=== PATIENT | male | born 1970 ===

== ENCOUNTER 2017-01-25 00:36 | Observation (INO) | payer MEDICARE, OTHER ==
[2017-01-25 00:36] VITALS: BMI 21.9
[2017-01-25] MEDS ORDERED: Sodium Chloride 0.9% 1,000 ML IV ONE (01:09)
[2017-01-25] MEDS ORDERED: Iohexol 240 (50 ml) PO STA (01:09)
--- NOTE | 2017-01-25 01:11 | C.PDOC ---
History Of Present Illness 46 year old male with ESRD on hemodialysis (Tuesday, , and Tuesday), presents to the ER with a complaint of abdominal pain since last night. Patient states the pain is generalized cramping and associated with multiple episodes of diarrhea and nausea. Patient reports he does not make any urine; denies vomiting, fever, or chills. Time Seen by Provider: 01/25/17 01:01 Chief Complaint (Nursing): Abdominal Pain History Per: Patient History/Exam Limitations: no limitations Onset/Duration Of Symptoms: Days Current Symptoms Are (Timing): Still Present Location Of Pain/Discomfort: Diffuse Radiation Of Pain To:: None Quality Of Discomfort: Unable To Describe Associated Symptoms: Nausea, Diarrhea. denies: Fever, Chills, Vomiting Exacerbating Factors: None Alleviating Factors: None Recent travel outside of the [place]: No Past Medical History Reviewed: Historical Data, Nursing Documentation, Vital Signs Vital Signs: Last Vital Signs Temp 97.9 F 01/25/17 00:40 Pulse 66 01/25/17 00:40 Resp 20 01/25/17 00:40 BP 112/75 01/25/17 00:40 Pulse Ox 100 01/25/17 02:33 - Medical History PMH: HTN, End Stage Renal Disease (DIALYSIS T--TUE), Chronic Kidney Disease - [facility] Procedures INCIS W REM OF FORIEGN BODY OR DEV FROM SKIN & SUBCUT TISSUE (01/28/06) VENOUS CATHETERIZATION FOR RENAL DIALYSIS (06/18/13) Family History: States: No Known Family Hx - Social History Hx Tobacco Use: No Hx Alcohol Use: No Hx Substance Use: No - Immunization History Hx Tetanus Toxoid Vaccination: No Hx Influenza Vaccination: No Hx Pneumococcal Vaccination: No Review Of Systems Constitutional: Negative for: Fever, Chills Gastrointestinal: Positive for: Nausea, Abdominal Pain. Negative for: Vomiting Genitourinary: Positive for: Other (Does not make urine) Physical Exam - Physical Exam Appears: Non-toxic Skin: Normal Color, Warm, Dry Head: Atraumatic, Normacephalic Eye(s): bilateral: Normal Inspection, EOMI Oral Mucosa: Moist Neck: Normal ROM Chest: Symmetrical, No Tenderness Cardiovascular: Rhythm Regular, No Murmur Respiratory: Normal Breath Sounds, No Rales, No Rhonchi, No Wheezing Gastrointestinal/Abdominal: Bowel Sounds, Soft, Tenderness (Diffuse), Distention (Mild), Other (Dialysis cath noted to RLQ, multiple scars on abdomen) Back: Normal Inspection, No CVA Tenderness Neurological/Psych: Oriented x3, Normal Speech ED Course And Treatment - Laboratory Results Result Diagrams: 01/25/17 01:31 01/25/17 01:31 O2 Sat by Pulse Oximetry: 100 Medical Decision Making Medical Decision Making: Impression: abdominal pain, diarrhea Plan: * Labs * IV NS * CT A/P Progress: labs consistent with CKD CT shows colonic thickening, possible pancolitis Patient remains unchanged, mild improvement Plan is to keep for obs and treat with IV antibiotics Disposition - Disposition Referrals: Casa Huynh MD [Primary Care Provider] - Disposition: HOSPITALIZED Disposition Time: 05:45 Condition: STABLE - POA Present On Arrival: None - Clinical Impression Clinical Impression: Abdominal pain, ESRD (end stage renal disease) on dialysis, Acute colitis - Scribe Statement The provider has reviewed the documentation as recorded by the Scribe Willie William All medical record entries made by the Scribe were at my direction and personally dictated by me. I have reviewed the chart and agree that the record accurately reflects my personal performance of the history, physical exam, medical decision making, and the department course for this patient. I have also personally directed, reviewed, and agree with the discharge instructions and disposition. Decision To Admit - Pt Status Changed To: Hospital Disposition Of: Observation - . Bed Request Type: Regular Admitting Physician: Barry Mcdonough Patient Diagnosis: Abdominal pain, ESRD (end stage renal disease) on dialysis, Acute colitis
[2017-01-25] MEDS ORDERED: Sodium Chloride 0.9% 1,000 ML ONE (01:19)
[2017-01-25] MEDS ORDERED: Iohexol 240 (50 ml) ONE (01:19)
[2017-01-25 01:38] LABS: BASO % 1.4 % (0.0-2.0); EOS # 0.2 K/uL (0.0-0.7); EOS % 5.5 % (0.0-4.0); HEMATOCRIT 31.8 % (35.0-51.0); LYMPH # 0.3 K/uL (1.0-4.3); LYMPH % 8.6 % (20.0-40.0); MEAN CELL VOLUME 93.9 fL (80.0-94.0); MEAN CORPUSCULAR HEMOGLOBIN 29.7 pg (27.0-31.0); MEAN CORPUSCULAR HGB CONC 31.6 g/dL (33.0-37.0); MEAN PLATELET VOLUME 10.5 fL (7.2-11.7); MONO # 0.4 K/uL (0.0-0.8); MONO % 11.9 % (0.0-10.0); NRBC % 0.1 % (0.0-2.0); PLATELET COUNT 92 K/uL (130-400); RED CELL DISTRIBUTION WIDTH 15.8 % (11.5-14.5); WHITE BLOOD COUNT 3.5 K/uL (4.8-10.8)
[2017-01-25 01:56] LABS: ALB/GLOB RATIO 1.1 (1.0-2.1); BILIRUBIN,TOTAL 1.1 mg/dL (0.2-1.3); CALCIUM 7.4 mg/dl (8.6-10.4); POTASSIUM 5.4 mmol/L (3.6-5.2); TOTAL PROTEIN 7.9 g/dL (6.3-8.3)
[2017-01-25 05:35] LABS: EOSINOPHIL 5 % (0-4); NEUTROPHIL 71 % (50-75); TOTAL CELLS COUNTED 100
[2017-01-25] MEDS ORDERED: Piperacillin/Tazobact 3.375 gm 100 ML IVPB ONE (05:59)
--- NOTE | 2017-01-25 08:47 | CT ---
PROCEDURE: CT Abdomen and Pelvis without intravenous contrast HISTORY: Generalized abdominal pain. Diarrhea. COMPARISON: None. TECHNIQUE: Multiple contiguous axial images were performed through the abdomen and pelvis without the use of intravenous contrast. Subsequently, sagittal and coronal reformatted images were obtained. Radiation dose: Total exam DLP = 330 mGy-cm. This CT exam was performed using one or more of the following dose reduction techniques: Automated exposure control, adjustment of the mA and/or kV according to patient size, and/or use of iterative reconstruction technique. FINDINGS: LOWER THORAX: Small right pleural effusion. Patchy alveolar opacities in the right lower lobe. Central line introduced from the lumbar approach in the inferior vena cava with its tip in the right atrium. Coronary calcifications. LIVER: Marked prominence of the left hepatic lobe with a heterogeneous attenuation. This may be better evaluated with a contrasted study. GALLBLADDER AND BILE DUCTS: Unremarkable. PANCREAS: Unremarkable. No gross lesion or ductal dilatation. SPLEEN: Mild splenomegaly. ADRENALS: Unremarkable. No mass. KIDNEYS AND URETERS: Both kidneys are not identified and may be severely atrophic or surgically absent. VASCULATURE: Significant prominence of the azygous venous system. Moderate atherosclerotic calcification. BOWEL: Diffuse wall thickening of the colon. Underdistention versus wall thickening of the stomach. Prominent featureless segment of bowel in the right anterior abdomen which may be related to prior surgery and or an atrophic segment. APPENDIX: Not visualized. PERITONEUM: Unremarkable. No free fluid. No free air. LYMPH NODES: Few shotty para-aortic and mesenteric lymph nodes. Due to prominence of the azygous venous system, retrocrural lymph nodes are difficult to detect. BLADDER: Urinary bladder is deformed in contracted. REPRODUCTIVE: Unremarkable. BONES: Diffuse sclerosis of the bones is likely related to chronic renal failure. Mild loss of height of the superior endplate of the L2 vertebral body. OTHER FINDINGS: Amorphous calcification in the right lower quadrant, possibly from prior renal transplant. Trace pelvic ascites. Extensive anasarca limiting evaluation. Calcification extending from the left groin into the left thigh. IMPRESSION: Diffuse wall thickening of the colon. This may represent an underlying anderson colitis. Alternatively, this may be related to renal failure and or anasarca. Additional findings as above. These findings were preliminarily reported at 5:24 a.m. on 01/25/[address] Lore Novoa from [employer].
[2017-01-25] MEDS ORDERED: Pantoprazole 40 mg EC Tab PO SCH (10:00)
[2017-01-25] MEDS ORDERED: Enoxaparin 40 mg Syringe SC SCH (10:00)
[2017-01-25] MEDS ORDERED: Enoxaparin 40 mg Syringe ONE (10:21)
[2017-01-25] MEDS ORDERED: Ciprofloxacin 400mg/200ml D5W 400 MG/200 ML BAG IVPB ONE (10:21)
--- NOTE | 2017-01-25 10:34 | CP.PCM.CON ---
<Ac Arceo - Last Filed: 01/25/17 15:48> History of Present Illness - History of Present Illness History of Present Illness: PGY5 GI Fellow Consult Note Patient is a 46yo male with PMHx significant for chronic HBV on daily Lamivudine , ESRD on HD T/R/Sa, HTN who presented to the ED with abdominal discomfort. Patient is a poor historian. For the past two days, patient has been suffering with worsening abdominal bloating. He developed pressure-like discomfort two days prior to arrival and admits to increase in abdominal girth. During this same timeframe he admits to 4-5 episode of loose, watery stool daily. He had one episode of nausea/vomiting one day ago but denies any fever, chills. Patient also denies any recent antibiotic use, sick contacts or travel outside the country. He is unable to provide any history regarding his chronic HBV infection and did not know the name of his medication he is on but admits to compliance with daily therapy. No lab work is available in our system in regards to the patient's HBV status. He denies any history of cirrhosis and it is unclear if he has required HCC screening previously. 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 absent: Chills, Fever, Weight Loss - EENT Eyes: absent: Change in Vision Nose/Mouth/Throat: absent: Sore Throat - Cardiovascular Cardiovascular: absent: Chest Pain, Dyspnea, Palpitations - Respiratory Respiratory: absent: Cough, Dyspnea, Excessive Mucous Production - Gastrointestinal Gastrointestinal: Abdominal Pain, Bloating, Change in Bowel Habits, Change in Stool Character, Diarrhea, Dyspepsia, Nausea, Vomiting. absent: Constipation, Cramping, Dysphagia, Hematemesis, Hematochezia, Melena, Temesmus - Genitourinary Genitourinary: absent: Flank Pain Additional comments: pt is anuric - Musculoskeletal Musculoskeletal: absent: Back Pain, Neck Pain - Integumentary Integumentary: absent: New Lesions, Rash - Neurological Neurological: absent: Dizziness, Numbness, Focal Weakness - Psychiatric Psychiatric: absent: Anxiety, Depression - Endocrine Endocrine: absent: Polydipsia, Polyphagia, Polyuria - Hematologic/Lymphatic Hematologic: absent: Easy Bleeding, Easy Bruising, Lymphadenopathy Past Patient History - Past Social History Smoking Status: Never Smoked - CARDIAC Hx Hypertension: Yes - NEUROLOGICAL Hx Paralysis: No - RENAL Hx Chronic Kidney Disease: Yes - HEMATOLOGICAL/ONCOLOGICAL Hx Blood Transfusions: No Hx Blood Transfusion Reaction: No - MUSCULOSKELETAL/RHEUMATOLOGICAL Hx Musculoskeletal Disorders: No - PSYCHIATRIC Hx Substance Use: No - SURGICAL HISTORY Hx Surgeries: Yes Hx Vascular Surgery: Yes (SHUNT placement) - ANESTHESIA Hx Anesthesia: Yes Hx Anesthesia Reactions: No Hx Malignant Hyperthermia: No Meds Allergies/Adverse Reactions: Allergies Allergy/AdvReac Type Severity Reaction Status Date / Time No Known Allergies Allergy Verified 01/25/17 00:43 - Medications Medications: Current Medications Calcium Acetate (Phoslo) 667 mg PO DAILY [facility] Cinacalcet (Sensipar) 30 mg PO DAILY [facility] Clonidine HCl (Catapres) 0.1 mg PO DAILY [facility] Enoxaparin Sodium (Lovenox) 40 mg SC DAILY [facility] Home Med (Lamivudine [Lamivudine Hbv]) 100 mg PO DAILY [facility] Sodium Chloride (Sodium Chloride 0.9%) 1,000 mls @ 100 mls/hr IV .Q10H ONE Stop: 01/25/17 11:08 Last Admin: 01/25/17 02:01 Dose: 100 mls/hr Piperacillin Sod/Tazobactam Sod (Zosyn 3.375 Gm Iv Premix) 3.375 gm in 50 mls @ 100 mls/hr IVPB Q8H [facility] Ciprofloxacin (Cipro 400mg/200ml Dsw) 400 mg in 200 mls @ 133 mls/hr IVPB Q12H [facility] Morphine Sulfate (Morphine) 2 mg IVP Q4 PRN PRN Reason: pain Pantoprazole Sodium (Protonix Ec Tab) 20 mg PO DAILY [facility] Sevelamer Carbonate (Renvela) 3 mg PO TID [facility] Physical Exam - Constitutional Appears: No Acute Distress, Chronically Ill - Eye Exam Eye Exam: EOMI, PERRL - ENT Exam ENT Exam: Mucous Membranes Moist - Respiratory Exam Respiratory Exam: Clear to Auscultation Bilateral. absent: Rales, Rhonchi, Wheezes - Cardiovascular Exam Cardiovascular Exam: RRR, +S1, +S2 - GI/Abdominal Exam GI & Abdominal Exam: Distended, Normal Bowel Sounds, Soft. absent: Firm, Guarding, Organomegaly, Rigid, Tenderness Additional comments: healed midline surgical scar - Extremities Exam Extremities exam: Positive for: normal inspection. Negative for: pedal edema - Neurological Exam Neurological exam: Alert, Oriented x3 - Psychiatric Exam Psychiatric exam: Flat Affect - Skin Skin Exam: Dry, Warm Results - Vital Signs Recent Vital Signs: Last Vital Signs Temp 98.4 F 01/25/17 07:54 Pulse 74 01/25/17 10:25 Resp 18 01/25/17 10:25 BP 104/77 01/25/17 10:25 Pulse Ox 100 01/25/17 10:25 - Labs Result Diagrams: 01/25/17 01:31 01/25/17 01:31 Labs: Laboratory Results - last 24 hr 01/25/17 01/25/17 01:31 01:31 WBC 3.5 L RBC 3.38 L Hgb 10.0 L Hct 31.8 L MCV 93.9 D MCH 29.7 MCHC 31.6 L RDW 15.8 H Plt Count 92 L D MPV 10.5 Neut % (Auto) 72.6 Lymph % (Auto) 8.6 L [place] % (Auto) 11.9 H Eos % (Auto) 5.5 H Baso % (Auto) 1.4 Neut # 2.5 Lymph # 0.3 L Mitchell # 0.4 Eos # 0.2 Baso # 0.0 Neutrophils % (Manual) 71 Lymphocytes % (Manual) 14 L Monocytes % (Manual) 10 Eosinophils % (Manual) 5 H Platelet Estimate Decreased L Poikilocytosis (manual Slight Anisocytosis (manual) Slight Sodium 143 Potassium 5.4 H Chloride 98 Carbon Dioxide 26 Anion Gap 24 H BUN 37 H Creatinine 9.9 H* Est GFR ( Amer) 7 Est GFR (Non-Af Amer) 6 Random Glucose 98 Calcium 7.4 L Total Bilirubin 1.1 AST 37 ALT 26 Alkaline Phosphatase 156 H Total Protein 7.9 Albumin 4.0 Globulin 3.8 Albumin/Globulin Ratio 1.1 Lipase 240 Assessment & Plan - Assessment and Plan (Free Text) Assessment: Patient is a 46yo male with PMHx significant for chronic HBV on daily Lamivudine , ESRD on HD T/R/Sa, HTN who presented to the ED with abdominal discomfort. -Pancolitis -Chronic HBV on Lamivudine -ESRD on HD T/R/Sa -HTN Plan: -Would recommend checking stool culture and C diff given risk factor of exposure to hospital setting - dialysis patient -Agree with empiric antibiotic coverage - Would recommend Zosyn/Flagyl or Ceftriaxone/Flagyl and discontinue Cipro -CT A/P reviewed - no evidence of cirrhotic or complications related to liver disease on imaging -Regarding the patient's HBV, Check: HBV SAg HBV SAb HBV EAg HBV EAb HBV DNA AFP -Check INR -Will ultimately benefit from colonoscopy once acute issues resolve which can be performed as an outpatient - Date & Time Date: 01/25/17 Time: 11:00 <London Edwards - Last Filed: 01/25/17 15:56> Meds - Medications Medications: Current Medications Calcium Acetate (Phoslo) 667 mg PO DAILY [facility] Last Admin: 01/25/17 12:05 Dose: Not Given Cinacalcet (Sensipar) 30 mg PO DAILY [facility] Last Admin: 01/25/17 11:42 Dose: 30 mg Clonidine HCl (Catapres) 0.1 mg PO DAILY [facility] Last Admin: 01/25/17 10:56 Dose: Not Given Enoxaparin Sodium (Lovenox) 40 mg SC DAILY [facility] Last Admin: 01/25/17 11:42 Dose: 40 mg Heparin Sodium (Porcine) (Heparin) 1,000 units IVP TTS [facility] Stop: 01/29/17 10:01 Last Admin: 01/25/17 13:45 Dose: 1,000 units Heparin Sodium (Porcine) (Heparin) 5,400 units IVP TTS [facility] Stop: 01/29/17 10:01 Piperacillin Sod/Tazobactam Sod (Zosyn 3.375 Gm Iv Premix) 3.375 gm in 50 mls @ 100 mls/hr IVPB Q8H [facility] Ciprofloxacin (Cipro 400mg/200ml Dsw) 400 mg in 200 mls @ 133 mls/hr IVPB Q12H [facility] Last Admin: 01/25/17 10:38 Dose: 133 mls/hr Lamivudine (Epivir) 100 mg PO DAILY [facility] Morphine Sulfate (Morphine) 2 mg IVP Q4 PRN PRN Reason: pain Pantoprazole Sodium (Protonix Ec Tab) 20 mg PO DAILY [facility] Last Admin: 01/25/17 12:06 Dose: 20 mg Sevelamer Carbonate (Renvela) 2,400 mg PO TIDCC [facility] Results - Vital Signs Recent Vital Signs: Last Vital Signs Temp 98.2 F 01/25/17 13:35 Pulse 62 01/25/17 15:18 Resp 16 01/25/17 15:18 BP 108/91 H 01/25/17 15:18 Pulse Ox 100 01/25/17 13:35 - Labs Result Diagrams: 01/25/17 01:31 01/25/17 01:31 Labs: Laboratory Results - last 24 hr 01/25/17 01/25/17 01:31 01:31 WBC 3.5 L RBC 3.38 L Hgb 10.0 L Hct 31.8 L MCV 93.9 D MCH 29.7 MCHC 31.6 L RDW 15.8 H Plt Count 92 L D MPV 10.5 Neut % (Auto) 72.6 Lymph % (Auto) 8.6 L [place] % (Auto) 11.9 H Eos % (Auto) 5.5 H Baso % (Auto) 1.4 Neut # 2.5 Lymph # 0.3 L Mitchell # 0.4 Eos # 0.2 Baso # 0.0 Neutrophils % (Manual) 71 Lymphocytes % (Manual) 14 L Monocytes % (Manual) 10 Eosinophils % (Manual) 5 H Platelet Estimate Decreased L Poikilocytosis (manual Slight Anisocytosis (manual) Slight Sodium 143 Potassium 5.4 H Chloride 98 Carbon Dioxide 26 Anion Gap 24 H BUN 37 H Creatinine 9.9 H* Est GFR ( Amer) 7 Est GFR (Non-Af Amer) 6 Random Glucose 98 Calcium 7.4 L Total Bilirubin 1.1 AST 37 ALT 26 Alkaline Phosphatase 156 H Total Protein 7.9 Albumin 4.0 Globulin 3.8 Albumin/Globulin Ratio 1.1 Lipase 240 Attending/Attestation - Attestation I have personally seen and examined this patient.: Yes I have fully participated in the care of the patient.: Yes I have reviewed all pertinent clinical information: Yes Notes (Text): 01/25/17 15:50 I have seen and examined patient with GI fellow. Agree with above documentation with the following additions. In brief, this is a 46 year old male with history of ESRD on HD, chronic HBV on lamivudine, HTN, who presented to hospital with complaint of abdominal pain and change in bowel habits. He endorses having 4-5 loose watery, non-bloody bowel movements over the past two days accompanied with crampy diffuse abdominal pain. He denies nausea, vomiting , fever/chills, weight loss, rectal bleeding, recent travel, sick contacts, or recent antibiotic use. He is not clear regarding follow up of chronic liver disease, though claims to be compliant with medical therapy. No prior endoscopic evaluation. ESRD on HD Chronic HBV HTN Abdominal pain, diarrhea - CT imaging reviewed by me showing pancolitis without associated moira-colonic abscess - Liquid diet as tolerated - Obtain stool studies (culture, c-difficile) - Continue with antibiotic therapy, would suggest stopping cipro since zosyn has already been started and adding flagyl for extended coverage - Obtain further HBV studies to further evaluate for active disease including EAg status and viral load - Continue to monitor LFTs, obtain INR - Patient will benefit from colonoscopy which can be performed electively as outpatient 6-8 weeks following resolution of acute symptoms - Will continue to monitor patient clinical course
[2017-01-25] MEDS: Ciprofloxacin 400mg/200ml D5W 400 MG/200 ML BAG IVPB SCH ×2 (10:38→21:37)
[2017-01-25] MEDS: Pantoprazole 20 mg EC Tab PO SCH (12:06)
[2017-01-25] MEDS: LamiVUDine 10 mg/ml Syringe PO SCH (13:00)
[2017-01-25] MEDS: Piperacill/Tazo 3.375gm in Dex 3.375 GM/50 ML BAG IVPB SCH ×2 (14:00→21:39)
--- NOTE | 2017-01-25 14:31 | CP.PCM.CON ---
History of Present Illness - History of Present Illness History of Present Illness: Patient is a 46yo male with PMHx significant for chronic HBV on daily Lamivudine , ESRD on HD T/R/Sa, HTN who presented to the ED with abdominal discomfort. Patient is a poor historian. For the past two days, patient has been suffering with worsening abdominal bloating. He developed pressure-like discomfort two days prior to arrival and admits to increase in abdominal girth. During this same timeframe he admits to 4-5 episode of loose, watery stool daily. He had one episode of nausea/vomiting one day ago but denies any fever, chills. Patient also denies any recent antibiotic use, sick contacts or travel outside the country. Last HD Tuesday, didnt miss any treatment. Pt has previous failed avf, currently abdominal hd catheter in place. 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 FHx: Discussed with patient and denies any pertinent family history Social: Denies tobacco, EtOH or illicit drug use Review of Systems - Review of Systems All systems: reviewed and no additional remarkable complaints except (as per HPI ) Past Patient History - Past Social History Smoking Status: Never Smoked - CARDIAC Hx Hypertension: Yes - NEUROLOGICAL Hx Paralysis: No - RENAL Hx Chronic Kidney Disease: Yes - HEMATOLOGICAL/ONCOLOGICAL Hx Blood Transfusions: No Hx Blood Transfusion Reaction: No - MUSCULOSKELETAL/RHEUMATOLOGICAL Hx Musculoskeletal Disorders: No - PSYCHIATRIC Hx Substance Use: No - SURGICAL HISTORY Hx Surgeries: Yes Hx Vascular Surgery: Yes (SHUNT placement) - ANESTHESIA Hx Anesthesia: Yes Hx Anesthesia Reactions: No Hx Malignant Hyperthermia: No Meds Allergies/Adverse Reactions: Allergies Allergy/AdvReac Type Severity Reaction Status Date / Time No Known Allergies Allergy Verified 01/25/17 00:43 - Medications Medications: Current Medications Calcium Acetate (Phoslo) 667 mg PO DAILY [facility] Last Admin: 01/25/17 12:05 Dose: Not Given Cinacalcet (Sensipar) 30 mg PO DAILY [facility] Last Admin: 01/25/17 11:42 Dose: 30 mg Clonidine HCl (Catapres) 0.1 mg PO DAILY [facility] Last Admin: 01/25/17 10:56 Dose: Not Given Enoxaparin Sodium (Lovenox) 40 mg SC DAILY [facility] Last Admin: 01/25/17 11:42 Dose: 40 mg Heparin Sodium (Porcine) (Heparin) 1,000 units IVP TTS [facility] Stop: 01/29/17 10:01 Last Admin: 01/25/17 13:45 Dose: 1,000 units Piperacillin Sod/Tazobactam Sod (Zosyn 3.375 Gm Iv Premix) 3.375 gm in 50 mls @ 100 mls/hr IVPB Q8H [facility] Ciprofloxacin (Cipro 400mg/200ml Dsw) 400 mg in 200 mls @ 133 mls/hr IVPB Q12H [facility] Last Admin: 01/25/17 10:38 Dose: 133 mls/hr Lamivudine (Epivir) 100 mg PO DAILY [facility] Morphine Sulfate (Morphine) 2 mg IVP Q4 PRN PRN Reason: pain Pantoprazole Sodium (Protonix Ec Tab) 20 mg PO DAILY [facility] Last Admin: 01/25/17 12:06 Dose: 20 mg Sevelamer Carbonate (Renvela) 2,400 mg PO TIDCC [facility] Physical Exam - Constitutional Appears: No Acute Distress, Chronically Ill - Head Exam Head Exam: NORMAL INSPECTION - Eye Exam Eye Exam: Normal appearance - ENT Exam ENT Exam: Mucous Membranes Moist, Normal Exam - Neck Exam Neck exam: Positive for: Normal Inspection - Cardiovascular Exam Cardiovascular Exam: REGULAR RHYTHM, RRR - GI/Abdominal Exam GI & Abdominal Exam: Diminished Bowel Sounds, Distended, Soft Additional comments: midline scar. rt sided hd catheter - Neurological Exam Neurological exam: Alert, Oriented x3 Results - Vital Signs Recent Vital Signs: Last Vital Signs Temp 98.4 F 01/25/17 07:54 Pulse 74 01/25/17 10:25 Resp 18 01/25/17 10:25 BP 104/77 01/25/17 10:25 Pulse Ox 100 01/25/17 10:25 - Labs Result Diagrams: 01/25/17 01:31 01/25/17 01:31 Labs: Laboratory Results - last 24 hr 01/25/17 01/25/17 01:31 01:31 WBC 3.5 L RBC 3.38 L Hgb 10.0 L Hct 31.8 L MCV 93.9 D MCH 29.7 MCHC 31.6 L RDW 15.8 H Plt Count 92 L D MPV 10.5 Neut % (Auto) 72.6 Lymph % (Auto) 8.[address] [place] % (Auto) 11.9 H Eos % (Auto) 5.5 H Baso % (Auto) 1.4 Neut # 2.5 Lymph # 0.[address] [place] # 0.4 Eos # 0.2 Baso # 0.0 Neutrophils % (Manual) 71 Lymphocytes % (Manual) 14 L Monocytes % (Manual) 10 Eosinophils % (Manual) 5 H Platelet Estimate Decreased L Poikilocytosis (manual Slight Anisocytosis (manual) Slight Sodium 143 Potassium 5.4 H Chloride 98 Carbon Dioxide 26 Anion Gap 24 H BUN 37 H Creatinine 9.9 H* Est GFR ( Amer) 7 Est GFR (Non-Af Amer) 6 Random Glucose 98 Calcium 7.4 L Total Bilirubin 1.1 AST 37 ALT 26 Alkaline Phosphatase 156 H Total Protein 7.9 Albumin 4.0 Globulin 3.8 Albumin/Globulin Ratio 1.1 Lipase 240 Assessment & Plan (1) Abdominal pain Status: Acute (2) Acute colitis Status: Acute (3) ESRD (end stage renal disease) on dialysis Status: Acute - Assessment and Plan (Free Text) Assessment: maintain hd tts obtained hepatitis status from hd unit GI management
[2017-01-25 17:05] LABS: INR 1.4
--- NOTE | 2017-01-25 20:34 | CP.PCM.HP ---
Past Patient History - Past Medical History & Family History Past Medical History?: Yes - Past Social History Smoking Status: Never Smoked - CARDIAC Hx Hypertension: Yes - NEUROLOGICAL Hx Paralysis: No - RENAL Hx Chronic Kidney Disease: Yes - HEMATOLOGICAL/ONCOLOGICAL Hx Blood Transfusions: No Hx Blood Transfusion Reaction: No - MUSCULOSKELETAL/RHEUMATOLOGICAL Hx Musculoskeletal Disorders: No - PSYCHIATRIC Hx Substance Use: No - SURGICAL HISTORY Hx Surgeries: Yes Hx Vascular Surgery: Yes (SHUNT placement) - ANESTHESIA Hx Anesthesia: Yes Hx Anesthesia Reactions: No Hx Malignant Hyperthermia: No Meds Allergies/Adverse Reactions: Allergies Allergy/AdvReac Type Severity Reaction Status Date / Time No Known Allergies Allergy Verified 01/25/17 00:43 Physical Exam - Constitutional Appears: Well - Head Exam Head Exam: ATRAUMATIC, NORMAL INSPECTION, NORMOCEPHALIC - Eye Exam Eye Exam: EOMI, Normal appearance, PERRL Pupil Exam: NORMAL ACCOMODATION, PERRL - ENT Exam ENT Exam: Mucous Membranes Moist, Normal Exam - Neck Exam Neck exam: Positive for: Normal Inspection - Respiratory Exam Respiratory Exam: Decreased Breath Sounds - Cardiovascular Exam Cardiovascular Exam: REGULAR RHYTHM, +S1, +S2 - GI/Abdominal Exam GI & Abdominal Exam: Diminished Bowel Sounds, Soft - Rectal Exam Rectal Exam: Deferred Results - Vital Signs Recent Vital Signs: Last Vital Signs Temp 97.6 F 01/25/17 17:05 Pulse 69 01/25/17 17:05 Resp 16 01/25/17 17:05 BP 104/78 01/25/17 17:05 Pulse Ox 97 01/25/17 17:05 - Labs Result Diagrams: 01/25/17 01:31 01/25/17 01:31 Labs: Laboratory Results - last 24 hr 01/25/17 01/25/17 01/25/17 01:31 01:31 16:52 WBC 3.5 L RBC 3.38 L Hgb 10.0 L Hct 31.8 L MCV 93.9 D MCH 29.7 MCHC 31.6 L RDW 15.8 H Plt Count 92 L D MPV 10.5 Neut % (Auto) 72.6 Lymph % (Auto) 8.6 L [place] % (Auto) 11.9 H Eos % (Auto) 5.5 H Baso % (Auto) 1.4 Neut # 2.5 Lymph # 0.3 L [place] # 0.4 Eos # 0.2 Baso # 0.0 Neutrophils % (Manual) 71 Lymphocytes % (Manual) 14 L Monocytes % (Manual) 10 Eosinophils % (Manual) 5 H Platelet Estimate Decreased L Poikilocytosis (manual Slight Anisocytosis (manual) Slight PT INR Sodium 143 Potassium 5.4 H Chloride 98 Carbon Dioxide 26 Anion Gap 24 H BUN 37 H Creatinine 9.9 H* Est GFR ( Amer) 7 Est GFR (Non-Af Amer) 6 Random Glucose 98 Calcium 7.4 L Total Bilirubin 1.1 AST 37 ALT 26 Alkaline Phosphatase 156 H Total Protein 7.9 Albumin 4.0 Globulin 3.8 Albumin/Globulin Ratio 1.1 Lipase 240 Alpha Fetoprotein Hep Bs Antibody Negative 01/25/17 01/25/17 16:52 16:52 WBC RBC Hgb Hct MCV MCH MCHC RDW Plt Count MPV Neut % (Auto) Lymph % (Auto) [place] % (Auto) Eos % (Auto) Baso % (Auto) Neut # Lymph # [place] # Eos # Baso # Neutrophils % (Manual) Lymphocytes % (Manual) Monocytes % (Manual) Eosinophils % (Manual) Platelet Estimate Poikilocytosis (manual Anisocytosis (manual) PT 15.9 H INR 1.4 Sodium Potassium Chloride Carbon Dioxide Anion Gap BUN Creatinine Est GFR ( Amer) Est GFR (Non-Af Amer) Random Glucose Calcium Total Bilirubin AST ALT Alkaline Phosphatase Total Protein Albumin Globulin Albumin/Globulin Ratio Lipase Alpha Fetoprotein 1.7 Hep Bs Antibody
[2017-01-26] MEDS: Piperacill/Tazo 3.375gm in Dex 3.375 GM/50 ML BAG IVPB SCH ×2 (05:38→14:29)
[2017-01-26 09:06] LABS: HEP B SURFACE AG CONF CONFIRMED POSITIVE
[2017-01-26] MEDS: Ciprofloxacin 400mg/200ml D5W 400 MG/200 ML BAG IVPB SCH (10:47)
[2017-01-26] MEDS: Pantoprazole 20 mg EC Tab PO SCH (10:56)
[2017-01-26] MEDS: LamiVUDine 10 mg/ml Syringe PO SCH (10:57)
[2017-01-26 11:04] LABS: BASO % 1.6 % (0.0-2.0); EOS # 0.2 K/uL (0.0-0.7); EOS % 5.6 % (0.0-4.0); HEMATOCRIT 28.4 % (35.0-51.0); LYMPH # 0.3 K/uL (1.0-4.3); LYMPH % 11.2 % (20.0-40.0); MEAN CELL VOLUME 93.8 fL (80.0-94.0); MEAN CORPUSCULAR HEMOGLOBIN 29.3 pg (27.0-31.0); MEAN CORPUSCULAR HGB CONC 31.3 g/dL (33.0-37.0); MEAN PLATELET VOLUME 10.1 fL (7.2-11.7); MONO # 0.5 K/uL (0.0-0.8); MONO % 17.5 % (0.0-10.0); NRBC % 0.1 % (0.0-2.0); RED CELL DISTRIBUTION WIDTH 16.2 % (11.5-14.5); WHITE BLOOD COUNT 2.8 K/uL (4.8-10.8)
[2017-01-26 11:14] LABS: POTASSIUM 3.9 mmol/L (3.6-5.2)
[2017-01-26 11:16] LABS: BILIRUBIN,TOTAL 1.2 mg/dL (0.2-1.3)
[2017-01-26 11:17] LABS: TOTAL PROTEIN 7.1 g/dL (6.3-8.3)
--- NOTE | 2017-01-26 14:53 | CP.PCM.PN ---
Subjective - Date & Time of Evaluation Date of Evaluation: 01/26/17 Time of Evaluation: 14:50 - Subjective Subjective: still with abdominal pains has had diarrhea stable dialysis 01/25- UF 2300ml low grade temps noted poor appetite Objective - Vital Signs/Intake and Output Vital Signs (last 24 hours): Temp Pulse Resp BP Pulse Ox 98.7 F 69 20 100/66 97 01/26/17 08:12 01/26/17 08:12 01/26/17 08:12 01/26/17 08:12 01/26/17 08:12 Intake and Output: 01/26/17 01/26/17 06:59 18:59 Intake Total 300 Output Total 0 Balance 300 - Medications Medications: Current Medications Calcium Acetate (Phoslo) 667 mg PO TID [facility] Cinacalcet (Sensipar) 30 mg PO DAILY [facility] Last Admin: 01/26/17 10:51 Dose: 30 mg Clonidine HCl (Catapres) 0.1 mg PO DAILY [facility] Last Admin: 01/26/17 10:51 Dose: 0.1 mg Heparin Sodium (Porcine) (Heparin) 1,000 units IVP TTS [facility] Stop: 01/29/17 10:01 Last Admin: 01/25/17 13:45 Dose: 1,000 units Heparin Sodium (Porcine) (Heparin) 5,400 units IVP TTS [facility] Stop: 01/29/17 10:01 Last Admin: 01/25/17 17:36 Dose: 5,400 units Metronidazole (Flagyl) 500 mg in 100 mls @ 100 mls/hr IVPB Q8 [facility] Piperacillin Sod/Tazobactam Sod (Zosyn 2.25 Gm Iv Premix) 2.25 gm in 50 mls @ 100 mls/hr IVPB Q8H [facility] Lamivudine (Epivir) 100 mg PO DAILY [facility] Last Admin: 01/26/17 10:57 Dose: 100 mg Morphine Sulfate (Morphine) 2 mg IVP Q4 PRN PRN Reason: pain Pantoprazole Sodium (Protonix Ec Tab) 20 mg PO DAILY [facility] Last Admin: 01/26/17 10:56 Dose: 20 mg Sevelamer Carbonate (Renvela) 2,400 mg PO TIDCC [facility] Last Admin: 01/26/17 13:00 Dose: 2,400 mg - Labs Labs: 01/26/17 10:57 01/26/17 10:57 PT 15.9 SECONDS (9.7-12.2) H 01/25/17 16:52 INR 1.4 01/25/17 16:52 - Constitutional Appears: No Acute Distress, Chronically Ill - Head Exam Head Exam: ATRAUMATIC, NORMAL INSPECTION - Eye Exam Eye Exam: EOMI, Normal appearance - Neck Exam Neck Exam: Normal Inspection. absent: Tenderness - Respiratory Exam Respiratory Exam: Clear to Ausculation Bilateral, NORMAL BREATHING PATTERN - Cardiovascular Exam Cardiovascular Exam: REGULAR RHYTHM, +S1 - GI/Abdominal Exam GI & Abdominal Exam: Soft. absent: Tenderness - Extremities Exam Extremities Exam: Normal Inspection. absent: Tenderness - Neurological Exam Neurological Exam: Alert, CN II-XII Intact - Skin Skin Exam: Dry, Warm Assessment and Plan (1) Vein stenosis Status: Acute (2) Acute colitis Status: Acute (3) ESRD (end stage renal disease) on dialysis Status: Acute (4) Chronic hepatitis B without delta agent without cirrhosis Status: Acute - Assessment and Plan (Free Text) Plan: Dialysis tts check c.diff GI follow up blood cultures- has h/o recurrent bacteremia from TESIO cath source
--- NOTE | 2017-01-26 17:38 | CP.PCM.PN ---
Subjective - Date & Time of Evaluation Date of Evaluation: 01/26/17 Time of Evaluation: 07:20 - Subjective Subjective: clinically same Objective - Vital Signs/Intake and Output Vital Signs (last 24 hours): Temp Pulse Resp BP Pulse Ox 98.7 F 69 20 92/57 L 95 01/26/17 16:00 01/26/17 16:00 01/26/17 16:00 01/26/17 16:00 01/26/17 16:00 Intake and Output: 01/26/17 01/26/17 06:59 18:59 Intake Total 300 Output Total 0 Balance 300 - Medications Medications: Current Medications Calcium Acetate (Phoslo) 667 mg PO TID [facility] Cinacalcet (Sensipar) 30 mg PO DAILY [facility] Last Admin: 01/26/17 10:51 Dose: 30 mg Clonidine HCl (Catapres) 0.1 mg PO DAILY [facility] Last Admin: 01/26/17 10:51 Dose: 0.1 mg Heparin Sodium (Porcine) (Heparin) 1,000 units IVP TTS [facility] Stop: 01/29/17 10:01 Last Admin: 01/25/17 13:45 Dose: 1,000 units Heparin Sodium (Porcine) (Heparin) 5,400 units IVP TTS [facility] Stop: 01/29/17 10:01 Last Admin: 01/25/17 17:36 Dose: 5,400 units Metronidazole (Flagyl) 500 mg in 100 mls @ 100 mls/hr IVPB Q8 [facility] Piperacillin Sod/Tazobactam Sod (Zosyn 2.25 Gm Iv Premix) 2.25 gm in 50 mls @ 100 mls/hr IVPB Q8H [facility] Lamivudine (Epivir) 100 mg PO DAILY [facility] Last Admin: 01/26/17 10:57 Dose: 100 mg Morphine Sulfate (Morphine) 2 mg IVP Q4 PRN PRN Reason: pain Pantoprazole Sodium (Protonix Ec Tab) 20 mg PO DAILY [facility] Last Admin: 01/26/17 10:56 Dose: 20 mg Sevelamer Carbonate (Renvela) 2,400 mg PO TIDCC [facility] Last Admin: 01/26/17 13:00 Dose: 2,400 mg - Labs Labs: 01/26/17 10:57 01/26/17 10:57 PT 15.9 SECONDS (9.7-12.2) H 01/25/17 16:52 INR 1.4 01/25/17 16:52 - Constitutional Appears: Well - Head Exam Head Exam: ATRAUMATIC, NORMAL INSPECTION, NORMOCEPHALIC - Eye Exam Eye Exam: EOMI, Normal appearance, PERRL Pupil Exam: NORMAL ACCOMODATION, PERRL - ENT Exam ENT Exam: Mucous Membranes Moist, Normal Exam - Neck Exam Neck Exam: Full ROM, Normal Inspection. absent: Lymphadenopathy - Respiratory Exam Respiratory Exam: Decreased Breath Sounds - Cardiovascular Exam Cardiovascular Exam: REGULAR RHYTHM, +S1, +S2 - GI/Abdominal Exam GI & Abdominal Exam: Soft, Diminished Bowel Sounds - Rectal Exam Rectal Exam: Deferred
--- NOTE | 2017-01-26 20:32 | CP.PCM.PN ---
Subjective - Date & Time of Evaluation Date of Evaluation: 01/26/17 Time of Evaluation: 20:29 - Subjective Subjective: Notified by Dr Atwood that patient was admitted and they were not aware that he has been cared for my me in the past. Office records not available to review until tomorrow. Patient was seen in my office only last week!! Pain reported to be better. Stool studies and viral markers/PCR have been ordered. Has F4 fibrosis by previous Fibrosure testing done in my office. No PCR available but was ordered last week as well. Objective - Vital Signs/Intake and Output Vital Signs (last 24 hours): Temp Pulse Resp BP Pulse Ox 98.7 F 69 20 92/57 L 95 01/26/17 16:00 01/26/17 16:00 01/26/17 16:00 01/26/17 16:00 01/26/17 16:00 - Medications Medications: Current Medications Calcium Acetate (Phoslo) 667 mg PO TID [facility] Last Admin: 01/26/17 17:51 Dose: 667 mg Cinacalcet (Sensipar) 30 mg PO DAILY [facility] Last Admin: 01/26/17 10:51 Dose: 30 mg Clonidine HCl (Catapres) 0.1 mg PO DAILY [facility] Last Admin: 01/26/17 10:51 Dose: 0.1 mg Heparin Sodium (Porcine) (Heparin) 1,000 units IVP TTS [facility] Stop: 01/29/17 10:01 Last Admin: 01/25/17 13:45 Dose: 1,000 units Heparin Sodium (Porcine) (Heparin) 5,400 units IVP TTS [facility] Stop: 01/29/17 10:01 Last Admin: 01/25/17 17:36 Dose: 5,400 units Metronidazole (Flagyl) 500 mg in 100 mls @ 100 mls/hr IVPB Q8 [facility] Piperacillin Sod/Tazobactam Sod (Zosyn 2.25 Gm Iv Premix) 2.25 gm in 50 mls @ 100 mls/hr IVPB Q8H [facility] Lamivudine (Epivir) 25 mg PO DAILY [facility] Morphine Sulfate (Morphine) 2 mg IVP Q4 PRN PRN Reason: pain Pantoprazole Sodium (Protonix Ec Tab) 20 mg PO DAILY [facility] Last Admin: 01/26/17 10:56 Dose: 20 mg Sevelamer Carbonate (Renvela) 2,400 mg PO TIDCC [facility] Last Admin: 01/26/17 17:51 Dose: 2,400 mg - Labs Labs: 01/26/17 10:57 01/26/17 10:57 PT 15.9 SECONDS (9.7-12.2) H 01/25/17 16:52 INR 1.4 01/25/17 16:52 - Constitutional Appears: No Acute Distress - Head Exam Head Exam: ATRAUMATIC, NORMOCEPHALIC - Respiratory Exam Respiratory Exam: NORMAL BREATHING PATTERN - Cardiovascular Exam Cardiovascular Exam: REGULAR RHYTHM - GI/Abdominal Exam GI & Abdominal Exam: Distended, Soft, Hypoactive Bowel Sounds. absent: Tenderness, Mass Additional comments: large midline scars, no masses. - Rectal Exam Rectal Exam: NORMAL INSPECTION - Extremities Exam Extremities Exam: Normal Inspection Assessment and Plan (1) Abnormal CT of the abdomen Assessment & Plan: as noted below Status: Acute (2) Acute colitis Assessment & Plan: Patient currently on broad spectrum antibiotics. Stool studies including C diff have been ordered Agree with period of clinical observation and follow up with colonoscopy as out patient or if patient fails to improve and stool studies are unremarkable it can be done during this admission. Unsure if patient has had a colonoscopy in the past. Status: Acute (3) Chronic hepatitis B without delta agent without cirrhosis Assessment & Plan: Check eAg and eAb status as well as HBV-DNA. 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 Continue Lamivudine as long as virus is not resistant for now. Can use dose adjusted for dialysis Viread if needed. Will review office notes when available tomorrow. Status: Acute (4) ESRD (end stage renal disease) on dialysis Assessment & Plan: dialysis as per Dr Huynh Status: Acute
[2017-01-26] MEDS: metroNIDAZOLE IV 500 mg/100 ml 500 MG/100 ML BAG IVPB SCH (21:47)
[2017-01-26] MEDS: Piperacill/Tazo 2.25gm in Dex 2.25 GM/50 ML BAG IVPB SCH (23:58)
[2017-01-27 00:59] VITALS: O2SAT 98
[2017-01-27] MEDS: metroNIDAZOLE IV 500 mg/100 ml 500 MG/100 ML BAG IVPB SCH ×3 (05:35→14:19)
[2017-01-27] MEDS: Piperacill/Tazo 2.25gm in Dex 2.25 GM/50 ML BAG IVPB SCH (06:35)
[2017-01-27 09:21] LABS: BILIRUBIN,TOTAL 1.3 mg/dL (0.2-1.3); TOTAL PROTEIN 7.2 g/dL (6.3-8.3)
--- NOTE | 2017-01-27 09:50 | CP.PCM.PN ---
Subjective - Date & Time of Evaluation Date of Evaluation: 01/27/17 Time of Evaluation: 09:49 - Subjective Subjective: seen and examined for hd today low bp c/o diarrhea, bloating after eating c diff pending, on flagyl Objective - Vital Signs/Intake and Output Vital Signs (last 24 hours): Temp Pulse Resp BP Pulse Ox 98.1 F 64 20 105/69 98 01/27/17 09:02 01/27/17 09:02 01/27/17 09:02 01/27/17 09:02 01/27/17 09:02 Intake and Output: 01/27/17 01/27/17 06:59 18:59 Intake Total 600 Balance 600 - Medications Medications: Current Medications Calcium Acetate (Phoslo) 667 mg PO TID [facility] Last Admin: 01/26/17 17:51 Dose: 667 mg Cinacalcet (Sensipar) 30 mg PO DAILY [facility] Last Admin: 01/26/17 10:51 Dose: 30 mg Heparin Sodium (Porcine) (Heparin) 1,000 units IVP TTS [facility] Stop: 01/29/17 10:01 Last Admin: 01/25/17 13:45 Dose: 1,000 units Heparin Sodium (Porcine) (Heparin) 5,400 units IVP TTS [facility] Stop: 01/29/17 10:01 Last Admin: 01/25/17 17:36 Dose: 5,400 units Metronidazole (Flagyl) 500 mg in 100 mls @ 100 mls/hr IVPB Q8 [facility] Last Admin: 01/27/17 05:35 Dose: 100 mls/hr Piperacillin Sod/Tazobactam Sod (Zosyn 2.25 Gm Iv Premix) 2.25 gm in 50 mls @ 100 mls/hr IVPB Q8H [facility] Last Admin: 01/27/17 06:35 Dose: 100 mls/hr Lamivudine (Epivir) 25 mg PO DAILY [facility] Morphine Sulfate (Morphine) 2 mg IVP Q4 PRN PRN Reason: pain Pantoprazole Sodium (Protonix Ec Tab) 20 mg PO DAILY [facility] Last Admin: 01/26/17 10:56 Dose: 20 mg Sevelamer Carbonate (Renvela) 2,400 mg PO TIDCC [facility] Last Admin: 01/26/17 17:51 Dose: 2,400 mg - Labs Labs: 01/26/17 10:57 01/26/17 10:57 PT 15.9 SECONDS (9.7-12.2) H 01/25/17 16:52 INR 1.4 01/25/17 16:52 - Constitutional Appears: Non-toxic, No Acute Distress - Head Exam Head Exam: NORMAL INSPECTION - Eye Exam Eye Exam: Normal appearance - ENT Exam ENT Exam: Mucous Membranes Moist, Normal Exam - Neck Exam Neck Exam: Normal Inspection - Respiratory Exam Respiratory Exam: Clear to Ausculation Bilateral, NORMAL BREATHING PATTERN - Cardiovascular Exam Cardiovascular Exam: REGULAR RHYTHM, RRR - GI/Abdominal Exam GI & Abdominal Exam: Distended, Soft Additional comments: ivc tesio catheter - Extremities Exam Extremities Exam: Normal Inspection Assessment and Plan (1) Abdominal pain Status: Acute (2) Acute colitis Status: Acute (3) ESRD (end stage renal disease) on dialysis Status: Acute - Assessment and Plan (Free Text) Assessment: hd today, check blood cultures w/ hd follow c diff hold clonidine
[2017-01-27] MEDS ORDERED: LamiVUDine 10 mg/ml Syringe PO SCH (10:00)
--- NOTE | 2017-01-27 11:02 | CP.PCM.PN ---
Subjective - Date & Time of Evaluation Date of Evaluation: 01/27/17 Time of Evaluation: 10:59 - Subjective Subjective: Diarrhea and bloating somewhat better Seen in dialysis today Was seen in office last week and given Rx for Sonogram and Labwork (including PCR for HBV) but never went for them before admission. Never had colonoscopy in the past due to all his kidney issues. Objective - Vital Signs/Intake and Output Vital Signs (last 24 hours): Temp Pulse Resp BP Pulse Ox 98.1 F 58 L 20 105/75 98 01/27/17 09:02 01/27/17 10:45 01/27/17 09:02 01/27/17 10:45 01/27/17 09:02 Intake and Output: 01/27/17 01/27/17 06:59 18:59 Intake Total 600 Balance 600 - Medications Medications: Current Medications Calcium Acetate (Phoslo) 667 mg PO TID [facility] Last Admin: 01/26/17 17:51 Dose: 667 mg Cinacalcet (Sensipar) 30 mg PO DAILY [facility] Last Admin: 01/26/17 10:51 Dose: 30 mg Heparin Sodium (Porcine) (Heparin) 1,000 units IVP TTS [facility] Stop: 01/29/17 10:01 Last Admin: 01/27/17 10:22 Dose: 1,000 units Heparin Sodium (Porcine) (Heparin) 5,400 units IVP TTS [facility] Stop: 01/29/17 10:01 Last Admin: 01/25/17 17:36 Dose: 5,400 units Metronidazole (Flagyl) 500 mg in 100 mls @ 100 mls/hr IVPB Q8 [facility] Last Admin: 01/27/17 05:35 Dose: 100 mls/hr Piperacillin Sod/Tazobactam Sod (Zosyn 2.25 Gm Iv Premix) 2.25 gm in 50 mls @ 100 mls/hr IVPB Q8H [facility] Last Admin: 01/27/17 06:35 Dose: 100 mls/hr Lamivudine (Epivir) 25 mg PO DAILY [facility] Morphine Sulfate (Morphine) 2 mg IVP Q4 PRN PRN Reason: pain Pantoprazole Sodium (Protonix Ec Tab) 20 mg PO DAILY [facility] Last Admin: 01/26/17 10:56 Dose: 20 mg Sevelamer Carbonate (Renvela) 2,400 mg PO TIDCC [facility] Last Admin: 01/26/17 17:51 Dose: 2,400 mg - Labs Labs: 01/26/17 10:57 01/26/17 10:57 PT 15.9 SECONDS (9.7-12.2) H 01/25/17 16:52 INR 1.4 01/25/17 16:52 - Constitutional Appears: No Acute Distress - Eye Exam Eye Exam: EOMI, PERRL - Respiratory Exam Respiratory Exam: NORMAL BREATHING PATTERN - Cardiovascular Exam Cardiovascular Exam: REGULAR RHYTHM - GI/Abdominal Exam GI & Abdominal Exam: Distended, Soft, Hypoactive Bowel Sounds. absent: Tenderness Additional comments: Multiple midline scars, no tenderness or rebound. No masses. - Extremities Exam Extremities Exam: Normal Inspection Assessment and Plan (1) Abnormal CT of the abdomen Status: Acute (2) Acute colitis Assessment & Plan: Stool negative for C diff. 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 Awaiting PCR to determine if still Cuello susceptible. May need to change to tenofovir. Surveillance q 6 months for HCCa as per current AASLD guidelines. Status: Acute (4) ESRD (end stage renal disease) on dialysis Status: Acute
[2017-01-27] MEDS: Pantoprazole 20 mg EC Tab PO SCH (12:51)
[2017-01-27 13:32] VITALS: BP 95/70; PULSE 60; RESP 15; TEMP 97.6
--- NOTE | 2017-01-27 17:04 | CP.PCM.PN ---
Subjective - Date & Time of Evaluation Date of Evaluation: 01/27/17 Time of Evaluation: 17:04 - Subjective Subjective: Alert, awake, no sob or chest pains, NAD. Objective - Vital Signs/Intake and Output Vital Signs (last 24 hours): Temp Pulse Resp BP Pulse Ox 97.6 F 67 15 109/75 98 01/27/17 09:50 01/27/17 13:15 01/27/17 09:50 01/27/17 13:15 01/27/17 09:02 Intake and Output: 01/27/17 01/27/17 06:59 18:59 Intake Total 600 Balance 600 - Medications Medications: Current Medications Calcium Acetate (Phoslo) 667 mg PO TID [facility] Last Admin: 01/27/17 14:20 Dose: Not Given Cinacalcet (Sensipar) 30 mg PO DAILY [facility] Last Admin: 01/27/17 12:51 Dose: 30 mg Heparin Sodium (Porcine) (Heparin) 1,000 units IVP TTS [facility] Stop: 01/29/17 10:01 Last Admin: 01/27/17 10:22 Dose: 1,000 units Heparin Sodium (Porcine) (Heparin) 5,400 units IVP TTS [facility] Stop: 01/29/17 10:01 Last Admin: 01/27/17 13:32 Dose: 5,400 units Metronidazole (Flagyl) 500 mg in 100 mls @ 100 mls/hr IVPB Q8 [facility] Last Admin: 01/27/17 14:19 Dose: 100 mls/hr Piperacillin Sod/Tazobactam Sod (Zosyn 2.25 Gm Iv Premix) 2.25 gm in 50 mls @ 100 mls/hr IVPB Q8H [facility] Last Admin: 01/27/17 06:35 Dose: 100 mls/hr Lamivudine (Epivir) 25 mg PO DAILY [facility] Last Admin: 01/27/17 10:53 Dose: 25 mg Morphine Sulfate (Morphine) 2 mg IVP Q4 PRN PRN Reason: pain Pantoprazole Sodium (Protonix Ec Tab) 20 mg PO DAILY [facility] Last Admin: 01/27/17 12:51 Dose: 20 mg Sevelamer Carbonate (Renvela) 2,400 mg PO TIDCC [facility] Last Admin: 01/27/17 12:51 Dose: 2,400 mg - Labs Labs: 01/26/17 10:57 01/26/17 10:57 PT 15.9 SECONDS (9.7-12.2) H 01/25/17 16:52 INR 1.4 01/25/17 16:52 Assessment and Plan - Assessment and Plan (Free Text) Assessment: Patient is seen and examined. Alert, awake, had hemo dialysis done today. No diarrhea, stool negative for c diff. D/W DR Gaurav Mcdonough, plan to discharge home today. Advised to follow up with PMD in 1 week.
--- NOTE | 2017-01-27 17:20 | CP.PCM.PN ---
Subjective - Date & Time of Evaluation Date of Evaluation: 01/27/17 Time of Evaluation: 07:40 - Subjective Subjective: clinically same Objective - Vital Signs/Intake and Output Vital Signs (last 24 hours): Temp Pulse Resp BP Pulse Ox 97.6 F 67 15 109/75 98 01/27/17 09:50 01/27/17 13:15 01/27/17 09:50 01/27/17 13:15 01/27/17 09:02 Intake and Output: 01/27/17 01/27/17 06:59 18:59 Intake Total 600 Balance 600 - Medications Medications: Current Medications Calcium Acetate (Phoslo) 667 mg PO TID [facility] Last Admin: 01/27/17 14:20 Dose: Not Given Cinacalcet (Sensipar) 30 mg PO DAILY [facility] Last Admin: 01/27/17 12:51 Dose: 30 mg Heparin Sodium (Porcine) (Heparin) 1,000 units IVP TTS [facility] Stop: 01/29/17 10:01 Last Admin: 01/27/17 10:22 Dose: 1,000 units Heparin Sodium (Porcine) (Heparin) 5,400 units IVP TTS [facility] Stop: 01/29/17 10:01 Last Admin: 01/27/17 13:32 Dose: 5,400 units Metronidazole (Flagyl) 500 mg in 100 mls @ 100 mls/hr IVPB Q8 [facility] Last Admin: 01/27/17 14:19 Dose: 100 mls/hr Piperacillin Sod/Tazobactam Sod (Zosyn 2.25 Gm Iv Premix) 2.25 gm in 50 mls @ 100 mls/hr IVPB Q8H [facility] Last Admin: 01/27/17 06:35 Dose: 100 mls/hr Lamivudine (Epivir) 25 mg PO DAILY [facility] Last Admin: 01/27/17 10:53 Dose: 25 mg Morphine Sulfate (Morphine) 2 mg IVP Q4 PRN PRN Reason: pain Pantoprazole Sodium (Protonix Ec Tab) 20 mg PO DAILY [facility] Last Admin: 01/27/17 12:51 Dose: 20 mg Sevelamer Carbonate (Renvela) 2,400 mg PO TIDCC [facility] Last Admin: 01/27/17 12:51 Dose: 2,400 mg - Labs Labs: 01/26/17 10:57 09/20/17 10:57 PT 15.9 SECONDS (9.7-12.2) H 01/25/17 16:52 INR 1.4 01/25/17 16:52 - Constitutional Appears: Well - Head Exam Head Exam: ATRAUMATIC, NORMAL INSPECTION, NORMOCEPHALIC - Eye Exam Eye Exam: EOMI, Normal appearance, PERRL Pupil Exam: NORMAL ACCOMODATION, PERRL - ENT Exam ENT Exam: Mucous Membranes Moist, Normal Exam - Neck Exam Neck Exam: Full ROM, Normal Inspection. absent: Lymphadenopathy - Respiratory Exam Respiratory Exam: Decreased Breath Sounds - Cardiovascular Exam Cardiovascular Exam: REGULAR RHYTHM, +S1, +S2 - GI/Abdominal Exam GI & Abdominal Exam: Soft, Diminished Bowel Sounds - Rectal Exam Rectal Exam: Deferred
== END 2017-01-27 18:00 | disposition home or self-care (01) ==
LOC: C.ER 00:36 → SUPCPDRO 00:36 → C.9E 06:28 → C.3T 12:46
PROVIDERS: ADMIT Internal Medicine Nephrology; ATTEND Internal Medicine Nephrology
DX: K52.9 Noninfective gastroenteritis and colitis, unspecified (principal); I12.0 Hypertensive chronic kidney disease with stage 5 chronic kidney disease or end stage renal disease; N18.6 End stage renal disease; I87.1 Compression of vein; B18.1 Chronic viral hepatitis B without delta-agent; T86.12 Kidney transplant failure; Z99.2 Dependence on renal dialysis
CPT/HCPCS: 36415; 74176; 80053; 80076; 82105; 83690; 85025; 85610; 86706; 86707; 87040; 87045; 87230; 87340; 87350; 87517; 96372; 96374; 99284; G0257; G0378; J0744; J1644; J1650; J2543; J7040; Q9966

== ENCOUNTER 2017-02-19 00:32 | Inpatient (IN) | payer MEDICARE, OTHER ==
[2017-02-19 00:32] VITALS: BMI 19.5
[2017-02-19] MEDS ORDERED: Sodium Chloride 0.9% 1,000 ML IV ONE ×2 (00:54→12:30)
[2017-02-19] MEDS ORDERED: Pantoprazole 80 MG in Sodium Chloride 0.9% 100 ML IV STA (00:54)
--- NOTE | 2017-02-19 00:54 | C.PDOC ---
History Of Present Illness 46 y/o male patient presents to the ER with vomiting dark red blood since 1 day ago. Patient vomited approximately 300ccs of hematemesis in ED. Patient receives dialysis treatment every tuesday,, and tuesday; patient is due for dialysis today. Patient is able to speak in complete sentences. Patient denies any fever or chills. Time Seen by Provider: 02/19/17 00:49 Chief Complaint (Nursing): Abdominal Pain History Per: Patient History/Exam Limitations: no limitations Onset/Duration Of Symptoms: Days (1) Current Symptoms Are (Timing): Still Present Severity: Mild Pain Scale Rating Of: 4 Associated Symptoms: Nausea, Vomiting. denies: Fever, Chills Exacerbating Factors: None Alleviating Factors: None Recent travel outside of the [place]: No Past Medical History Reviewed: Historical Data, Nursing Documentation, Vital Signs Vital Signs: Last Vital Signs Temp 97.3 F L 02/19/17 00:48 Pulse 77 02/19/17 01:34 Resp 18 02/19/17 01:34 BP 96/61 L 02/19/17 01:37 Pulse Ox 100 02/19/17 01:43 - Medical History PMH: HTN, End Stage Renal Disease (DIALYSIS T--TUE), Chronic Kidney Disease Surgical History: Pacemaker - [facility] Procedures INCIS W REM OF FORIEGN BODY OR DEV FROM SKIN & SUBCUT TISSUE (01/28/06) VENOUS CATHETERIZATION FOR RENAL DIALYSIS (06/18/13) Family History: States: No Known Family Hx - Social History Hx Tobacco Use: No Hx Alcohol Use: No Hx Substance Use: No - Immunization History Hx Tetanus Toxoid Vaccination: No Hx Influenza Vaccination: No Hx Pneumococcal Vaccination: No Review Of Systems Constitutional: Negative for: Fever, Chills Gastrointestinal: Positive for: Vomiting, Hematemesis Physical Exam - Physical Exam Appears: In Acute Distress Skin: Warm, Dry Head: Normacephalic Oral Mucosa: Dry Chest: Symmetrical Cardiovascular: Rhythm Regular Respiratory: No Rales, No Rhonchi, No Wheezing Gastrointestinal/Abdominal: Soft, No Tenderness, Distention, Other (surgical scars from previous gastric surgery) Back: Other (Dialysis shunt) Extremity: Right: Other (dialysis graft right arm with good thrill and bruit) Neurological/Psych: Oriented x3 ED Course And Treatment - Laboratory Results Result Diagrams: 02/19/17 01:03 02/19/17 01:03 ECG: Interpreted By Me, Viewed By Me ECG Rhythm: Sinus Rhythm (74), Nonspecific Changes O2 Sat by Pulse Oximetry: 100 (room air) Pulse Ox Interpretation: Normal Progress Note: Plans-. BBK, EKG,Blood tests,Chest x-ray,Urinalysis. Meds- Zofran, Protonix, IV Fluid Disposition Discussed With Dr.: Barry Mcdonough Comment: accepted the pt onhis service and took over the care at 1:45 AM Counseled Patient/Family Regarding: Studies Performed, Diagnosis - Disposition Disposition: HOSPITALIZED Disposition Time: 00:51 Condition: FAIR Forms: [facility] (Tunisian) - POA Present On Arrival: None - Clinical Impression Clinical Impression: Abdominal pain, ESRD (end stage renal disease) on dialysis, Nausea, Vomiting, UGI bleed - Scribe Statement The provider has reviewed the documentation as recorded by the Joe Burt Provider Attestation: All medical record entries made by the Kavinibe were at my direction and personally dictated by me. I have reviewed the chart and agree that the record accurately reflects my personal performance of the history, physical exam, medical decision making, and the department course for this patient. I have also personally directed, reviewed, and agree with the discharge instructions and disposition. Decision To Admit - Pt Status Changed To: Hospital Disposition Of: Inpatient - Admit Certification Admit to Inpatient:: After my assessment, the patient will require hospitalization for at least two midnights. This is because of the severity of symptoms shown, intensity of services needed, and/or the medical risk in this patient being treated as an outpatient. - InPatient: Physician Admission Certification:: After my assessment, the patient will require hospitalization for at least two midnights. This is because of the severity of symptoms shown, intensity of services needed, and/or the medical risk in this patient being treated as an outpatient. - . Bed Request Type: Telemetry Admitting Physician: Barry Mcdonough Patient Diagnosis: Abdominal pain, ESRD (end stage renal disease) on dialysis, Nausea, Vomiting, UGI bleed
[2017-02-19] MEDS ORDERED: Sodium Chloride 0.9% 1,000 ML ONE (00:59)
[2017-02-19 01:15] LABS: INR 1.5
[2017-02-19 01:21] LABS: BASO # 0.1 K/uL (0.0-0.2); EOS # 0.2 K/uL (0.0-0.7); EOS % 4.2 % (0.0-4.0); LYMPH % 21.1 % (20.0-40.0); MEAN CELL VOLUME 94.6 fL (80.0-94.0); MEAN CORPUSCULAR HEMOGLOBIN 29.5 pg (27.0-31.0); MEAN CORPUSCULAR HGB CONC 31.2 g/dL (33.0-37.0); MEAN PLATELET VOLUME 10.5 fL (7.2-11.7); MONO # 0.7 K/uL (0.0-0.8); MONO % 15.2 % (0.0-10.0); NRBC % 0.4 % (0.0-2.0); RED CELL DISTRIBUTION WIDTH 17.1 % (11.5-14.5); WHITE BLOOD COUNT 4.9 K/uL (4.8-10.8)
[2017-02-19 01:22] LABS: POTASSIUM 3.9 mmol/L (3.6-5.2)
[2017-02-19 01:24] LABS: BILIRUBIN,TOTAL 1.1 mg/dL (0.2-1.3)
[2017-02-19 01:25] LABS: ALB/GLOB RATIO 0.9 (1.0-2.1); CALCIUM 7.1 mg/dl (8.6-10.4)
[2017-02-19] MEDS ORDERED: Pantoprazole 80 MG in Sodium Chloride 0.9% 100 ML IVP SCH (01:30)
--- NOTE | 2017-02-19 03:44 | CP.PCM.CON ---
History of Present Illness - History of Present Illness History of Present Illness: 46 M with h/o chronic active HepB on lamivudine, ESRD on HD TTS, h/o abd surg for gi bleed about 10 yrs back, failed renal transplant has lumbar HD cath to ivc, came to ER with c/o vomiting black and blood yesterday, had about 3 black loose bm. In ER vomited black about 150ml. Patient's BP remained in 90's systolic and HR in 70's, has been feeling very wk, denies chest pain, dizziness or syncopal episode. Patient admits using advil few times/wk for arthritis pain and tylenol. PMH as above PSH as above also failed right arm av graft Meds reviewed, advil as above Allergies NKDA Social history lives with family hep B due to blood transfusion in 1984, denies smoking, alcohol or illicit drugs Family history not contributory Review of Systems - Review of Systems All systems: reviewed and no additional remarkable complaints except (HPI) Past Patient History - Infectious Disease Hx of Infectious Diseases: None - Past Medical History & Family History Past Medical History?: Yes - Past Social History Smoking Status: Never Smoked Alcohol: None Drugs: Denies Home Situation {Lives}: With Family - CARDIAC Hx Hypertension: Yes Hx Pacemaker: Yes - NEUROLOGICAL Hx Paralysis: No - RENAL Hx Chronic Kidney Disease: Yes - HEMATOLOGICAL/ONCOLOGICAL Hx Blood Transfusions: Yes Hx Blood Transfusion Reaction: No Hx Hepatitis B: Yes - MUSCULOSKELETAL/RHEUMATOLOGICAL Hx Musculoskeletal Disorders: No - PSYCHIATRIC Hx Substance Use: No - SURGICAL HISTORY Hx Surgeries: Yes - ANESTHESIA Hx Anesthesia: Yes Hx Anesthesia Reactions: No Hx Malignant Hyperthermia: No Meds Allergies/Adverse Reactions: Allergies Allergy/AdvReac Type Severity Reaction Status Date / Time No Known Allergies Allergy Verified 01/25/17 00:43 - Medications Medications: Current Medications Sodium Chloride (Sodium Chloride 0.9%) 1,000 mls @ 100 mls/hr IV .Q10H ONE Stop: 02/19/17 10:53 Last Admin: 02/19/17 01:02 Dose: 100 mls/hr Pantoprazole Sodium 80 mg/ (Sodium Chloride) 100 mls @ 10 mls/hr IVP .Q10H ROHAN PRN Reason: 8 MG/HR Last Admin: 02/19/17 01:50 Dose: 10 mls/hr Octreotide Acetate 1,250 mcg/ (Sodium Chloride) 252.5 mls @ 5.05 mls/hr SC .Q24H ROHAN PRN Reason: 25 MCG/HR Ondansetron HCl (Zofran Inj) 4 mg IVP Q8H PRN PRN Reason: Nausea/Vomiting Pantoprazole Sodium (Protonix Inj) 40 mg IVP DAILY ROHAN Physical Exam - Additional Findings Additional findings: * HEENT IRENE * Neck supple * Chest clear * CVS regular, no gallop or rub * PA mild distension, nontender, increased bowel sounds, midline scar, hd cath in right lumbar area * Ext 2+ edema both legs, on pulsitile av graft in right arm * [employer] awake oriented x3, no fnd * Skin normal turgor. Results - Vital Signs Recent Vital Signs: Last Vital Signs Temp 97.3 F L 02/19/17 00:48 Pulse 79 02/19/17 03:15 Resp 17 02/19/17 03:15 BP 89/51 L 02/19/17 03:15 Pulse Ox 100 02/19/17 03:15 - Labs Result Diagrams: 02/19/17 01:03 02/19/17 01:03 Labs: Laboratory Results - last 24 hr 02/19/17 02/19/17 02/19/17 01:03 01:03 01:03 WBC 4.9 D RBC 2.54 L Hgb 7.5 L Hct 24.0 L MCV 94.6 H MCH 29.5 MCHC 31.2 L RDW 17.1 H Plt Count 124 L D MPV 10.5 Neut % (Auto) 57.5 Lymph % (Auto) 21.1 [place] % (Auto) 15.2 H Eos % (Auto) 4.2 H Baso % (Auto) 2.0 Neut # 2.8 Lymph # 1.0 [place] # 0.7 Eos # 0.2 Baso # 0.1 Differential Comment PT 17.3 H INR 1.5 APTT 33 Sodium 144 Potassium 3.9 Chloride 97 L Carbon Dioxide 31 H Anion Gap 20 BUN 51 H Creatinine 7.0 H Est GFR ( Amer) 10 Est GFR (Non-Af Amer) 9 Random Glucose 84 Calcium 7.1 L Total Bilirubin 1.1 AST 49 ALT 31 Alkaline Phosphatase 132 H Total Protein 8.0 Albumin 3.7 Globulin 4.2 H Albumin/Globulin Ratio 0.9 L Lipase 262 Stool Occult Blood Blood Type Antibody Screen 02/19/17 02/19/17 01:03 01:06 WBC RBC Hgb Hct MCV MCH MCHC RDW Plt Count MPV Neut % (Auto) Lymph % (Auto) [place] % (Auto) Eos % (Auto) Baso % (Auto) Neut # Lymph # [place] # Eos # Baso # Differential Comment PT INR APTT Sodium Potassium Chloride Carbon Dioxide Anion Gap BUN Creatinine Est GFR ( Amer) Est GFR (Non-Af Amer) Random Glucose Calcium Total Bilirubin AST ALT Alkaline Phosphatase Total Protein Albumin Globulin Albumin/Globulin Ratio Lipase Stool Occult Blood Positive H Blood Type O POSITIVE Antibody Screen Negative Assessment & Plan - Assessment and Plan (Free Text) Assessment: 46 M with h/o chronic active HepB on lamivudine, ESRD on HD TTS, h/o abd surg for gi bleed about 10 yrs back, failed renal transplant has lumbar HD cath to ivc, came to ER with c/o vomiting black and blood yesterday, had about 3 black loose bm. In ER vomited black about 150ml. Patient's BP remained in 90's systolic and HR in 70's, has been feeling very wk, denies chest pain, dizziness or syncopal episode. Patient admits using advil few times/wk for arthritis pain * UGI bleed * Chronic active hepatitis B on lamivudine, slight spenomagly may suggest early portal htn and varices less likely from the current amount, vs congestive gastropathy VS peptic ulcer with recent use of NSAID * ESRD on HD lumbar ivc cath TTS schedule Plan: * PPI as drip * Octreotide drip * GI consult * Transfusion 1 unit * H/H monitoring * HD/ renal consult * Observe in ICU * See orders for detail.
--- NOTE | 2017-02-19 08:29 | CP.PCM.CON ---
History of Present Illness - History of Present Illness History of Present Illness: 46 M with h/o chronic active HepB on lamivudine, ESRD on HD TTS, h/o abd surg for gi bleed about 10 yrs back, failed renal transplant has lumbar HD cath to ivc, came to ER with c/o vomiting black and blood yesterday, had about 3 black loose bm. In ER vomited black about 150ml. Patient's BP remained in 90's systolic and HR in 70's, has been feeling very wk, denies chest pain, dizziness or syncopal episode. Patient notes abdominal bloating and distention ove past several days with decreased oral intake. Patient admits using advil few times/ wk for arthritis pain and tylenol. Known history of esrd on HD > 25 years, HD at [facility] [address], IVC catheter due to failed permanent access PMH as above PSH as above also failed right arm av graft Meds reviewed, advil as above Allergies NKDA Social history lives with family, hep B due to blood transfusion in 1984, denies smoking, alcohol or illicit drugs Family history : no renal disease Review of Systems - Constitutional Constitutional: Fatigue, Malaise - EENT Eyes: absent: Blurred Vision, Change in Vision, Itchy Eyes Ears: Disequilibrium. absent: Ear Pain, Tinnitus Nose/Mouth/Throat: absent: Nose Pain, Dry Mouth, Dysphagia - Cardiovascular Cardiovascular: absent: Edema, Irregular Heart Rhythm, Palpitations, Syncope - Respiratory Respiratory: absent: Cough, Wheezing - Gastrointestinal Gastrointestinal: Diarrhea, Nausea, Vomiting - Genitourinary Genitourinary: absent: Hematuria, Pyuria - Musculoskeletal Musculoskeletal: Muscle Weakness, Myalgias - Integumentary Integumentary: absent: New Lesions, Skin Ulcer, Sores - Neurological Neurological: Dizziness, Weakness. absent: Headaches, Memory Loss - Psychiatric Psychiatric: absent: Confusion, Depression - Endocrine Endocrine: absent: Cold Intolorance, Flushing - Hematologic/Lymphatic Hematologic: absent: Easy Bleeding, Easy Bruising Past Patient History - Infectious Disease Hx of Infectious Diseases: None - Past Medical History & Family History Past Medical History?: Yes - Past Social History Smoking Status: Never Smoked - CARDIAC Hx Hypertension: Yes Hx Pacemaker: Yes - NEUROLOGICAL Hx Paralysis: No - RENAL Hx Chronic Kidney Disease: Yes Hx Dialysis: Yes Type of Dialysis Access: abdominal permacath Date of Last Dialysis Treatment: 02/17/17 Hx Kidney Stones: No Hx Neurogenic Bladder: No Hx Pyelonephritis: No Hx Renal (Kidney) Cancer: No Hx Renal Failure: Yes Other/Comment: 2 failed av shunts - HEMATOLOGICAL/ONCOLOGICAL Hx Blood Transfusions: Yes Hx Blood Transfusion Reaction: No Hx Hepatitis B: Yes - MUSCULOSKELETAL/RHEUMATOLOGICAL Hx Musculoskeletal Disorders: No Hx Falls: No - GASTROINTESTINAL Hx Gastritis: Yes Hx Gastroesophageal Reflux: Yes Hx Vomiting: Yes - PSYCHIATRIC Hx Substance Use: No - SURGICAL HISTORY Hx Surgeries: Yes - ANESTHESIA Hx Anesthesia: Yes Hx Anesthesia Reactions: No Hx Malignant Hyperthermia: No Meds Allergies/Adverse Reactions: Allergies Allergy/AdvReac Type Severity Reaction Status Date / Time No Known Allergies Allergy Verified 01/25/17 00:43 - Medications Medications: Current Medications Sodium Chloride (Sodium Chloride 0.9%) 1,000 mls @ 100 mls/hr IV .Q10H ONE Stop: 02/19/17 10:53 Last Admin: 02/19/17 01:02 Dose: 100 mls/hr Pantoprazole Sodium 80 mg/ (Sodium Chloride) 100 mls @ 10 mls/hr IVP .Q10H ROHAN PRN Reason: 8 MG/HR Last Admin: 02/19/17 01:50 Dose: 10 mls/hr Octreotide Acetate 1,250 mcg/ (Sodium Chloride) 252.5 mls @ 5.05 mls/hr IV .Q24H ROHAN PRN Reason: 25 MCG/HR Last Admin: 02/19/17 05:07 Dose: 5.05 mls/hr Ondansetron HCl (Zofran Inj) 4 mg IVP Q8H PRN PRN Reason: Nausea/Vomiting Pantoprazole Sodium (Protonix Inj) 40 mg IVP DAILY [facility] Physical Exam - Constitutional Appears: Well, Non-toxic - Head Exam Head Exam: ATRAUMATIC, NORMAL INSPECTION - Eye Exam Eye Exam: EOMI, Normal appearance - ENT Exam ENT Exam: Mucous Membranes Moist, Normal Oropharynx - Neck Exam Neck exam: Negative for: Lymphadenopathy, Thyromegaly - Respiratory Exam Respiratory Exam: Clear to Auscultation Bilateral. absent: Rhonchi, Wheezes - Cardiovascular Exam Cardiovascular Exam: +S1, +S2, Systolic Murmur. absent: Rubs - GI/Abdominal Exam GI & Abdominal Exam: Distended, Firm, Normal Bowel Sounds. absent: Guarding - Extremities Exam Extremities exam: Negative for: pedal edema, tenderness - Back Exam Back exam: absent: rash noted, tenderness Additional comments: IVC catheter - Neurological Exam Neurological exam: Alert, Oriented x3 - Psychiatric Exam Psychiatric exam: Normal Affect, Normal Mood - Skin Skin Exam: Dry, Intact Results - Vital Signs Recent Vital Signs: Last Vital Signs Temp 97.6 F 02/19/17 05:44 Pulse 70 02/19/17 07:26 Resp 9 L 02/19/17 07:26 BP 103/44 L 02/19/17 07:26 Pulse Ox 100 02/19/17 07:26 - Labs Result Diagrams: 02/19/17 01:03 02/19/17 01:03 Labs: Laboratory Results - last 24 hr 02/19/17 02/19/17 02/19/17 01:03 01:03 01:03 WBC 4.9 D RBC 2.54 L Hgb 7.5 L Hct 24.0 L MCV 94.6 H MCH 29.5 MCHC 31.2 L RDW 17.1 H Plt Count 124 L D MPV 10.5 Neut % (Auto) 57.5 Lymph % (Auto) 21.1 [place] % (Auto) 15.2 H Eos % (Auto) 4.2 H Baso % (Auto) 2.0 Neut # 2.8 Lymph # 1.0 [place] # 0.7 Eos # 0.2 Baso # 0.1 Differential Comment PT 17.3 H INR 1.5 APTT 33 Sodium 144 Potassium 3.9 Chloride 97 L Carbon Dioxide 31 H Anion Gap 20 BUN 51 H Creatinine 7.0 H Est GFR ( Amer) 10 Est GFR (Non-Af Amer) 9 Random Glucose 84 Calcium 7.1 L Total Bilirubin 1.1 AST 49 ALT 31 Alkaline Phosphatase 132 H Total Protein 8.0 Albumin 3.7 Globulin 4.2 H Albumin/Globulin Ratio 0.9 L Lipase 262 Stool Occult Blood Blood Type Antibody Screen 02/19/17 02/19/17 01:03 01:06 WBC RBC Hgb Hct MCV MCH MCHC RDW Plt Count MPV Neut % (Auto) Lymph % (Auto) [place] % (Auto) Eos % (Auto) Baso % (Auto) Neut # Lymph # [place] # Eos # Baso # Differential Comment PT INR APTT Sodium Potassium Chloride Carbon Dioxide Anion Gap BUN Creatinine Est GFR ( Amer) Est GFR (Non-Af Amer) Random Glucose Calcium Total Bilirubin AST ALT Alkaline Phosphatase Total Protein Albumin Globulin Albumin/Globulin Ratio Lipase Stool Occult Blood Positive H Blood Type O POSITIVE Antibody Screen Negative Assessment & Plan (1) Anemia Status: Acute (2) Hypertension Status: Acute (3) Abdominal pain Status: Acute (4) ESRD (end stage renal disease) on dialysis Status: Acute (5) Nausea Status: Acute (6) UGI bleed Status: Acute (7) Chronic hepatitis B without delta agent without cirrhosis Status: Acute - Assessment and Plan (Free Text) Assessment: Acute Gi bleeding of unclear etiology Agree with ICU admission, PPI, and GI evaluation History of hypertension - recent hypotension according to patient, monitor in icu off bp meds Schedule dialysis today Transfuse on HD as needed JAE with dialysis
--- NOTE | 2017-02-19 08:59 | CP.PCM.PCO ---
Physician Communication Note - Physician Communication Note Physician Communication Note: This is a patient of Dr. Moreno. Consult changed to Dr. Moreno.
[2017-02-19] MEDS: Pantoprazole 80 MG in Sodium Chloride 0.9% 100 ML IVPB SCH ×2 (09:58→20:00)
[2017-02-19 10:10] LABS: HEMATOCRIT 20.9 % (35.0-51.0); MEAN CORPUSCULAR HEMOGLOBIN 28.6 pg (27.0-31.0); MEAN CORPUSCULAR HGB CONC 32.1 g/dL (33.0-37.0); MEAN PLATELET VOLUME 10.1 fL (7.2-11.7); RED CELL DISTRIBUTION WIDTH 17.6 % (11.5-14.5)
[2017-02-19 10:22] LABS: MEAN CELL VOLUME 89.3 fL (80.0-94.0)
--- NOTE | 2017-02-19 11:32 | CP.PCM.CON ---
History of Present Illness - History of Present Illness History of Present Illness: Notified about consult today at 10:[address] Ferrera. Asked to see patient for GI bleed. Pt reports a day of few episodes of black stool. Vomited a few episodes of dark blood and red blood. No further black stools today. Reports taking NSAIDs recently for RUE pain. PMH: ESRD, HD, Chronic HBV,on lamivudine, h/o gastric surgery 10 yrs ago for GI bleed. Was seen 3 weeks ago for abdom pain- had colitis on CT.. Review of Systems - Constitutional Constitutional: Fatigue. absent: Chills, Fever, Malaise - Cardiovascular Cardiovascular: absent: Chest Pain, Dyspnea - Respiratory Respiratory: absent: Cough, Hemoptysis, Wheezing - Gastrointestinal Gastrointestinal: Abdominal Pain, Hematemesis, Hematochezia, Melena, Vomiting. absent: Constipation, Diarrhea - Genitourinary Genitourinary: absent: Hematuria - Musculoskeletal Musculoskeletal: Arthralgias - Integumentary Integumentary: absent: Jaundice - Neurological Neurological: absent: Convulsions - Psychiatric Psychiatric: absent: Hallucinations Past Patient History - Infectious Disease Hx of Infectious Diseases: None - Past Medical History & Family History Past Medical History?: Yes - Past Social History Smoking Status: Never Smoked - CARDIAC Hx Hypertension: Yes Hx Pacemaker: Yes - NEUROLOGICAL Hx Paralysis: No - RENAL Hx Chronic Kidney Disease: Yes Hx Dialysis: Yes Type of Dialysis Access: abdominal permacath Date of Last Dialysis Treatment: 02/17/17 Hx Kidney Stones: No Hx Neurogenic Bladder: No Hx Pyelonephritis: No Hx Renal (Kidney) Cancer: No Hx Renal Failure: Yes Other/Comment: 2 failed av shunts - HEMATOLOGICAL/ONCOLOGICAL Hx Blood Transfusions: Yes Hx Blood Transfusion Reaction: No Hx Hepatitis B: Yes - MUSCULOSKELETAL/RHEUMATOLOGICAL Hx Musculoskeletal Disorders: No Hx Falls: No - GASTROINTESTINAL Hx Gastritis: Yes Hx Gastroesophageal Reflux: Yes Hx Vomiting: Yes - PSYCHIATRIC Hx Substance Use: No - SURGICAL HISTORY Hx Surgeries: Yes - ANESTHESIA Hx Anesthesia: Yes Hx Anesthesia Reactions: No Hx Malignant Hyperthermia: No Meds Allergies/Adverse Reactions: Allergies Allergy/AdvReac Type Severity Reaction Status Date / Time No Known Allergies Allergy Verified 01/25/17 00:43 - Medications Medications: Current Medications Octreotide Acetate 1,250 mcg/ (Sodium Chloride) 252.5 mls @ 5.05 mls/hr IV .Q24H ROHAN PRN Reason: 25 MCG/HR Last Admin: 02/19/17 05:07 Dose: 5.05 mls/hr Pantoprazole Sodium 80 mg/ (Sodium Chloride) 100 mls @ 10 mls/hr IVPB .Q10H ROHAN PRN Reason: 8 MG/HR Last Admin: 02/19/17 09:58 Dose: 10 mls/hr Ondansetron HCl (Zofran Inj) 4 mg IVP Q8H PRN PRN Reason: Nausea/Vomiting Pantoprazole Sodium (Protonix Inj) 40 mg IVP DAILY [facility]OHAN Physical Exam - Constitutional Appears: Non-toxic - Neck Exam Neck exam: Negative for: Tenderness - Respiratory Exam Respiratory Exam: Clear to Auscultation Bilateral - Cardiovascular Exam Cardiovascular Exam: REGULAR RHYTHM - GI/Abdominal Exam GI & Abdominal Exam: Normal Bowel Sounds, Soft. absent: Tenderness Additional comments: scars - Extremities Exam Additional comments: UE shunts for HD - Neurological Exam Neurological exam: Alert, Oriented x3 Results - Vital Signs Recent Vital Signs: Last Vital Signs Temp 97.6 F 02/19/17 05:44 Pulse 70 02/19/17 07:26 Resp 9 L 02/19/17 07:26 BP 103/44 L 02/19/17 07:26 Pulse Ox 100 02/19/17 07:26 - Labs Result Diagrams: 02/19/17 10:03 02/19/17 01:03 Labs: Laboratory Results - last 24 hr 02/19/17 02/19/17 02/19/17 01:03 01:03 01:03 WBC 4.9 D RBC 2.54 L Hgb 7.5 L Hct 24.0 L MCV 94.6 H MCH 29.5 MCHC 31.2 L RDW 17.1 H Plt Count 124 L D MPV 10.5 Neut % (Auto) 57.5 Lymph % (Auto) 21.1 [place] % (Auto) 15.2 H Eos % (Auto) 4.2 H Baso % (Auto) 2.0 Neut # 2.8 Lymph # 1.0 [place] # 0.7 Eos # 0.2 Baso # 0.1 Differential Comment PT 17.3 H INR 1.5 APTT 33 Sodium 144 Potassium 3.9 Chloride 97 L Carbon Dioxide 31 H Anion Gap 20 BUN 51 H Creatinine 7.0 H Est GFR ( Amer) 10 Est GFR (Non-Af Amer) 9 Random Glucose 84 Calcium 7.1 L Total Bilirubin 1.1 AST 49 ALT 31 Alkaline Phosphatase 132 H Total Protein 8.0 Albumin 3.7 Globulin 4.2 H Albumin/Globulin Ratio 0.9 L Lipase 262 Stool Occult Blood Blood Type Antibody Screen 02/19/17 02/19/17 02/19/17 01:03 01:06 10:03 WBC 4.0 L RBC 2.34 L Hgb 6.7 L Hct 20.9 L MCV 89.3 D MCH 28.6 MCHC 32.1 L RDW 17.6 H Plt Count 102 L D MPV 10.1 Neut % (Auto) Lymph % (Auto) [place] % (Auto) Eos % (Auto) Baso % (Auto) Neut # Lymph # [place] # Eos # Baso # Differential Comment PT INR APTT Sodium Potassium Chloride Carbon Dioxide Anion Gap BUN Creatinine Est GFR ( Amer) Est GFR (Non-Af Amer) Random Glucose Calcium Total Bilirubin AST ALT Alkaline Phosphatase Total Protein Albumin Globulin Albumin/Globulin Ratio Lipase Stool Occult Blood Positive H Blood Type O POSITIVE Antibody Screen Negative Assessment & Plan (1) Colitis Assessment and Plan: On lst admission Status: Acute (2) Abdominal pain Assessment and Plan: Mild.. Consider ulcer Status: Acute (3) Anemia Status: Acute (4) ESRD (end stage renal disease) on dialysis Assessment and Plan: Discussed with Dr Layla Kong and HD timing Status: Acute (5) Hypertension Status: Acute (6) UGI bleed Assessment and Plan: Consider ulcer, NSADI related disease. Consider varices with chronic HBV. Pt is on sandostatin and PPI. Check Hb. Transfuse. EGD. Status: Acute (7) Vomiting Status: Acute (8) Chronic hepatitis B without delta agent without cirrhosis Assessment and Plan: Continue lamivudine. Status: Acute
[2017-02-19] MEDS ORDERED: Propofol 10 mg/ml Inj (20 ML) ONE (12:11)
[2017-02-19] MEDS ORDERED: Phenylephrine 10 mg/ml Inj ONE (12:12)
[2017-02-19] MEDS ORDERED: Etomidate 20 mg/10ml Inj IV ONE (12:12)
--- NOTE | 2017-02-19 13:06 | RAD ---
PROCEDURE: CHEST RADIOGRAPH, 1 VIEW HISTORY: GI Bleeding COMPARISON: Comparison is made to the previous study dated 10/12/2013 FINDINGS: LUNGS: No evidence of new infiltrate or consolidation in the lungs PLEURA: No pneumothorax or pleural fluid seen. CARDIOVASCULAR: Normal. OSSEOUS STRUCTURES: No significant abnormalities. VISUALIZED UPPER ABDOMEN: Normal. OTHER FINDINGS: None. IMPRESSION: No active disease.
[2017-02-19] MEDS ORDERED: Albumin Human 25% (12.5 gm/50 ml) IV ONE (16:06)
--- NOTE | 2017-02-19 19:10 | CP.PCM.HP ---
Past Patient History - Infectious Disease Hx of Infectious Diseases: None - Past Medical History & Family History Past Medical History?: Yes - Past Social History Smoking Status: Never Smoked - CARDIAC Hx Hypertension: Yes Hx Pacemaker: Yes - NEUROLOGICAL Hx Paralysis: No - RENAL Hx Chronic Kidney Disease: Yes Hx Dialysis: Yes Type of Dialysis Access: abdominal permacath Date of Last Dialysis Treatment: 02/17/17 Hx Kidney Stones: No Hx Neurogenic Bladder: No Hx Pyelonephritis: No Hx Renal (Kidney) Cancer: No Hx Renal Failure: Yes Other/Comment: 2 failed av shunts - HEMATOLOGICAL/ONCOLOGICAL Hx Blood Transfusions: Yes Hx Blood Transfusion Reaction: No Hx Hepatitis B: Yes - MUSCULOSKELETAL/RHEUMATOLOGICAL Hx Musculoskeletal Disorders: No Hx Falls: No - GASTROINTESTINAL Hx Gastritis: Yes Hx Gastroesophageal Reflux: Yes Hx Vomiting: Yes - PSYCHIATRIC Hx Substance Use: No - SURGICAL HISTORY Hx Surgeries: Yes - ANESTHESIA Hx Anesthesia: Yes Hx Anesthesia Reactions: No Hx Malignant Hyperthermia: No Meds Allergies/Adverse Reactions: Allergies Allergy/AdvReac Type Severity Reaction Status Date / Time No Known Allergies Allergy Verified 01/25/17 00:43 Physical Exam - Constitutional Appears: Well - Head Exam Head Exam: ATRAUMATIC, NORMAL INSPECTION, NORMOCEPHALIC - Eye Exam Eye Exam: EOMI, Normal appearance, PERRL Pupil Exam: NORMAL ACCOMODATION, PERRL - ENT Exam ENT Exam: Mucous Membranes Moist, Normal Exam - Neck Exam Neck exam: Positive for: Normal Inspection - Respiratory Exam Respiratory Exam: Decreased Breath Sounds - Cardiovascular Exam Cardiovascular Exam: REGULAR RHYTHM, +S1, +S2 - GI/Abdominal Exam GI & Abdominal Exam: Diminished Bowel Sounds, Soft - Rectal Exam Rectal Exam: Deferred Results - Vital Signs Recent Vital Signs: Last Vital Signs Temp 97.4 F L 02/19/17 18:00 Pulse 57 L 02/19/17 18:00 Resp 10 L 02/19/17 18:00 BP 102/39 L 02/19/17 18:00 Pulse Ox 100 02/19/17 16:01 - Labs Result Diagrams: 02/19/17 10:03 02/19/17 01:03 Labs: Laboratory Results - last 24 hr 02/19/17 02/19/17 02/19/17 01:03 01:03 01:03 WBC 4.9 D RBC 2.54 L Hgb 7.5 L Hct 24.0 L MCV 94.6 H MCH 29.5 MCHC 31.2 L RDW 17.1 H Plt Count 124 L D MPV 10.5 Neut % (Auto) 57.5 Lymph % (Auto) 21.1 Weston % (Auto) 15.2 H Eos % (Auto) 4.2 H Baso % (Auto) 2.0 Neut # 2.8 Lymph # 1.0 Weston # 0.7 Eos # 0.2 Baso # 0.1 Differential Comment PT 17.3 H INR 1.5 APTT 33 Sodium 144 Potassium 3.9 Chloride 97 L Carbon Dioxide 31 H Anion Gap 20 BUN 51 H Creatinine 7.0 H Est GFR ( Amer) 10 Est GFR (Non-Af Amer) 9 Random Glucose 84 Calcium 7.1 L Total Bilirubin 1.1 AST 49 ALT 31 Alkaline Phosphatase 132 H Total Protein 8.0 Albumin 3.7 Globulin 4.2 H Albumin/Globulin Ratio 0.9 L Lipase 262 Stool Occult Blood Blood Type Antibody Screen 02/19/17 02/19/17 02/19/17 01:03 01:06 10:03 WBC 4.0 L RBC 2.34 L Hgb 6.7 L Hct 20.9 L MCV 89.3 D MCH 28.6 MCHC 32.1 L RDW 17.6 H Plt Count 102 L D MPV 10.1 Neut % (Auto) Lymph % (Auto) Weston % (Auto) Eos % (Auto) Baso % (Auto) Neut # Lymph # Weston # Eos # Baso # Differential Comment PT INR APTT Sodium Potassium Chloride Carbon Dioxide Anion Gap BUN Creatinine Est GFR ( Amer) Est GFR (Non-Af Amer) Random Glucose Calcium Total Bilirubin AST ALT Alkaline Phosphatase Total Protein Albumin Globulin Albumin/Globulin Ratio Lipase Stool Occult Blood Positive H Blood Type O POSITIVE Antibody Screen Negative
[2017-02-19 20:30] LABS: HEMATOCRIT 25.7 % (35.0-51.0); MEAN CELL VOLUME 87.7 fL (80.0-94.0); MEAN CORPUSCULAR HEMOGLOBIN 28.9 pg (27.0-31.0); MEAN PLATELET VOLUME 9.9 fL (7.2-11.7)
[2017-02-19 20:32] LABS: WHITE BLOOD COUNT 6.8 K/uL (4.8-10.8)
[2017-02-20] MEDS: Pantoprazole 80 MG in Sodium Chloride 0.9% 100 ML IVPB SCH ×3 (05:00→16:13)
[2017-02-20 06:48] LABS: HEMATOCRIT 24.6 % (35.0-51.0); MEAN CELL VOLUME 88.1 fL (80.0-94.0); MEAN CORPUSCULAR HEMOGLOBIN 29.3 pg (27.0-31.0); MEAN CORPUSCULAR HGB CONC 33.2 g/dL (33.0-37.0); MEAN PLATELET VOLUME 10.1 fL (7.2-11.7); RED CELL DISTRIBUTION WIDTH 17.2 % (11.5-14.5); WHITE BLOOD COUNT 5.6 K/uL (4.8-10.8)
[2017-02-20 06:50] LABS: MAGNESIUM 1.7 mg/dL (1.6-2.3); PHOSPHOROUS 2.6 mg/dL (2.5-4.5)
--- NOTE | 2017-02-20 09:45 | CP.PCM.PN ---
Subjective - Date & Time of Evaluation Date of Evaluation: 02/20/17 Time of Evaluation: 09:20 - Subjective Subjective: F/U GI bleed. No further bleeding. Discussed with RN. PT has been confused. Pt had some abdom pain. No report of hematemesis, melena, Sz, chills, hematuria, hemoptysis, cough. Objective - Vital Signs/Intake and Output Vital Signs (last 24 hours): Temp Pulse Resp BP Pulse Ox 98.7 F 74 13 122/64 100 02/20/17 08:00 02/20/17 09:15 02/20/17 09:15 02/20/17 09:04 02/20/17 09:15 Intake and Output: 02/20/17 02/20/17 06:59 18:59 Intake Total 180 30 Output Total 0 0 Balance 180 30 - Medications Medications: Current Medications Octreotide Acetate 1,250 mcg/ (Sodium Chloride) 252.5 mls @ 5.05 mls/hr IV .Q24H ROHAN PRN Reason: 25 MCG/HR Last Admin: 02/20/17 05:46 Dose: Not Given Pantoprazole Sodium 80 mg/ (Sodium Chloride) 100 mls @ 10 mls/hr IVPB .Q10H ROHAN PRN Reason: 8 MG/HR Last Admin: 02/20/17 07:22 Dose: 10 mls/hr Ondansetron HCl (Zofran Inj) 4 mg IVP Q8H PRN PRN Reason: Nausea/Vomiting Pantoprazole Sodium (Protonix Inj) 40 mg IVP DAILY [facility] Last Admin: 02/19/17 13:36 Dose: Not Given - Labs Labs: 02/20/17 06:31 02/19/17 01:03 PT 17.3 SECONDS (9.7-12.2) H 02/19/17 01:03 INR 1.5 02/19/17 01:03 APTT 33 SECONDS (21-34) 02/19/17 01:03 - Constitutional Appears: Confused - Respiratory Exam Respiratory Exam: Clear to Ausculation Bilateral - Cardiovascular Exam Cardiovascular Exam: RRR - GI/Abdominal Exam GI & Abdominal Exam: Normal Bowel Sounds. absent: Guarding, Rigid, Rebound Additional comments: Protuberant - Extremities Exam Additional comments: UE shunts - Neurological Exam Neurological Exam: absent: Alert, Oriented x3 Assessment and Plan (1) Colitis Assessment & Plan: 3 weeks ago at Status: Acute (2) Abdominal pain Assessment & Plan: COnsider gastritis, colitis, ascites. Check KUB, sono abdom. Consider CT Status: Acute (3) Anemia Assessment & Plan: CRF and GI bleed Status: Acute (4) ESRD (end stage renal disease) on dialysis Status: Acute (5) Hypertension Status: Acute (6) UGI bleed Assessment & Plan: Esoph varices- banded. Bleeding stopped. Rec- Octreotide, PPI, check Hb, antibiotics- renal. Will need repeat EGD in future for full eradication of varices.. Status: Acute (7) Vomiting Status: Acute (8) Chronic hepatitis B without delta agent without cirrhosis Status: Acute (9) Altered mental status Assessment & Plan: COnsider hepatic encephalopathy. Check ammonia level. Will likely need lactulose. Status: Acute
[2017-02-20] MEDS ORDERED: ceFAZolin IV 1 gm in Dextrose 1 GM/50 ML BAG IVPB SCH (10:00)
[2017-02-20 10:35] LABS: POTASSIUM 4.1 mmol/L (3.6-5.2)
[2017-02-20 10:38] LABS: ALB/GLOB RATIO 0.9 (1.0-2.1); BILIRUBIN,TOTAL 1.3 mg/dL (0.2-1.3); TOTAL PROTEIN 6.6 g/dL (6.3-8.3)
[2017-02-20 10:39] LABS: CALCIUM 6.9 mg/dl (8.6-10.4)
[2017-02-20 11:47] LABS: BASO # 0.1 K/uL (0.0-0.2); EOS # 0.2 K/uL (0.0-0.7); EOS % 3.3 % (0.0-4.0); HEMATOCRIT 23.8 % (35.0-51.0); LYMPH # 0.6 K/uL (1.0-4.3); LYMPH % 12.2 % (20.0-40.0); MEAN CELL VOLUME 87.9 fL (80.0-94.0); MEAN CORPUSCULAR HEMOGLOBIN 29.5 pg (27.0-31.0); MEAN CORPUSCULAR HGB CONC 33.5 g/dL (33.0-37.0); MONO # 0.5 K/uL (0.0-0.8); MONO % 10.5 % (0.0-10.0); NRBC % 0.5 % (0.0-2.0); RED CELL DISTRIBUTION WIDTH 17.4 % (11.5-14.5)
--- NOTE | 2017-02-20 13:30 | US ---
HISTORY: abdominal distention, ascites, cirrhosis COMPARISON: Comparison is made to the previous CT dated 01/25/2017 TECHNIQUE: Sonographic evaluation of the right upper quadrant of the abdomen. FINDINGS: LIVER: Measures 13 cm in length. Increased echogenicity and nodular echotexture of the liver parenchyma noted. No mass. No intrahepatic bile duct dilatation. GALLBLADDER: No evidence of cholelithiasis or cholecystitis. Mild gallbladder wall thickening measures up to 4.5 millimeter. COMMON BILE DUCT: Measures 4.8 mm. No stones. No dilatation. PANCREAS: Limited assessment of the pancreas due to overlying bowel gas. RIGHT KIDNEY: Right kidney was not visualized AORTA: No aneurysmal dilatation. IVC: There is central line in the IVC may represent hemodialysis catheter noted in the previous CT extending to the right atrium. OTHER FINDINGS: None . IMPRESSION: Mild diffuse gallbladder wall thickening could be due to soft tissue edema. No evidence of cholelithiasis or cholecystitis. Echogenic heterogeneous liver with nodular echotexture suggestive of cirrhosis. The pancreas obscured by overlying bowel gas. Right kidney was not visualized.
--- NOTE | 2017-02-20 13:45 | CP.CCUPN ---
CCU Subjective - Physician Review Events Since Last Encounter (Free Text): 02/20/17 13:42 Patient seen and examined in the intensive care unit. Case discussed with STAFF in the morning around Status post endoscopy with banding of varices No further bleeding noted H&H stable Patient much more lethargic/obtunded Fungal have elevated ammonia level CCU Objective - Vital Signs / Intake & Output Vital Signs (Last 4 hours): Vital Signs Pulse Resp BP Pulse Ox 02/20/17 11:34 69 11 L 104/49 L 02/20/17 11:30 70 11 L 02/20/17 11:15 75 8 L 100 02/20/17 11:00 72 11 L 100 02/20/17 10:45 69 11 L 100 02/20/17 10:34 83 15 117/70 100 02/20/17 10:30 81 12 100 02/20/17 10:15 73 14 100 02/20/17 10:04 73 13 99/53 L 100 02/20/17 10:00 71 13 100 02/20/17 09:45 71 11 L 100 Intake and Output (Last 8hrs): Intake & Output 02/19/17 02/20/17 02/20/17 22:59 06:59 14:59 Intake Total 120 120 75 Output Total 0 0 Balance 120 120 75 Weight 110 lb 109 lb 8 oz Intake: Intake, IV Amount 120 120 75 left forearm#2 port 1 80 80 50 left forearm#2 port 2 40 40 25 Output: Emesis 0 0 Other: # Bowel Movements 0 0 - Physical Exam Head: Positive for: Atraumatic, Normocephalic Mouth: Positive for: Moist Mucous Membranes Neck: Positive for: Normal Range of Motion Respiratory/Chest: Positive for: Clear to Auscultation Abdomen: Positive for: Distention, Normal Bowel Sounds Upper Extremity: Positive for: Normal Inspection Lower Extremity: Positive for: Normal Inspection - Medications Active Medications: Active Medications Generic Name Dose Route Start Last Admin Trade Name Freq PRN Reason Stop Dose Admin Octreotide Acetate 1,250 mcg/ 252.5 mls @ 5.05 mls/hr 02/19/17 05:15 05:46 Sodium Chloride IV Not Given .Q24H ROHAN 25 MCG/HR Pantoprazole Sodium 80 mg/ 100 mls @ 10 mls/hr 02/19/17 10:00 02/20/17 07:22 Sodium Chloride IVPB 10 mls/hr .Q10H ROHAN Administration 8 MG/HR Cefazolin Sodium/Dextrose 1 gm in 50 mls @ 100 mls/hr 02/20/17 10:00 Ancef Iv 1 Gm Duplex IVPB QAM ROHAN Lactulose 20 gm 02/20/17 22:00 Enulose PO HS ROHAN Ondansetron HCl 4 mg 02/19/17 02:11 Zofran Inj IVP Q8H PRN Nausea/Vomiting Pantoprazole Sodium 40 mg 02/19/17 10:00 02/19/17 13:36 Protonix Inj IVP Not Given DAILY [facility] - Patient Studies Lab Studies: Microbiology Studies 02/19/17 05:18 MRSA Culture (Admit) - Final Naris MRSA NOT DETECTED Lab Studies 02/20/17 02/20/17 02/20/17 Range/Units 12:45 11:42 06:31 WBC 5.0 (4.8-10.8) K/uL RBC 2.71 L (4.40-5.90) Mil/uL Hgb 8.0 L (12.0-18.0) g/dL Hct 23.8 L (35.0-51.0) % MCV 87.9 (80.0-94.0) fL MCH 29.5 (27.0-31.0) pg MCHC 33.5 (33.0-37.0) g/dL RDW 17.4 H (11.5-14.5) % Plt Count 121 L (130-400) K/uL MPV 10.0 (7.2-11.7) fL Neut % (Auto) 73.0 (50.0-75.0) % Lymph % (Auto) 12.2 L (20.0-40.0) % Hemphill % (Auto) 10.5 H (0.0-10.0) % Eos % (Auto) 3.3 (0.0-4.0) % Baso % (Auto) 1.0 (0.0-2.0) % Neut # 3.6 (1.8-7.0) K/uL Lymph # 0.6 L (1.0-4.3) K/uL Hemphill # 0.5 (0.0-0.8) K/uL Eos # 0.2 (0.0-0.7) K/uL Baso # 0.1 (0.0-0.2) K/uL Sodium 133 (132-148) mmol/L Potassium 4.1 (3.6-5.2) mmol/L Chloride 95 L (98-107) mmol/L Carbon Dioxide 24 (22-30) mmol/L Anion Gap 18 (10-20) BUN 31 H (9-20) mg/dL Creatinine 4.4 H (0.8-1.5) mg/dL Est GFR ( Amer) 18 Est GFR (Non-Af Amer) 15 Random Glucose 75 (75-110) mg/dL Calcium 6.9 L (8.6-10.4) mg/dl Phosphorus 2.6 (2.5-4.5) mg/dL Magnesium 1.7 (1.6-2.3) mg/dL Total Bilirubin 1.3 (0.2-1.3) mg/dL AST 74 H D (17-59) U/L ALT 33 (21-72) U/L Alkaline Phosphatase 119 (38-126) U/L Ammonia 142 H (9-33) umol/L Total Protein 6.6 (6.3-8.3) g/dL Albumin 3.1 L (3.5-5.0) g/dL Globulin 3.5 (2.2-3.9) gm/dL Albumin/Globulin Ratio 0.9 L (1.0-2.1) 02/20/17 02/19/17 Range/Units 06:31 20:31 WBC 5.6 6.8 D (4.8-10.8) K/uL RBC 2.79 L 2.93 L (4.40-5.90) Mil/uL Hgb 8.2 L 8.5 L (12.0-18.0) g/dL Hct 24.6 L 25.7 L (35.0-51.0) % MCV 88.1 87.7 (80.0-94.0) fL MCH 29.3 28.9 (27.0-31.0) pg MCHC 33.2 33.0 (33.0-37.0) g/dL RDW 17.2 H 18.0 H (11.5-14.5) % Plt Count 113 L 107 L (130-400) K/uL MPV 10.1 9.9 (7.2-11.7) fL Neut % (Auto) (50.0-75.0) % Lymph % (Auto) (20.0-40.0) % [place]phill % (Auto) (0.0-10.0) % Eos % (Auto) (0.0-4.0) % Baso % (Auto) (0.0-2.0) % Neut # (1.8-7.0) K/uL Lymph # (1.0-4.3) K/uL Hemphill # (0.0-0.8) K/uL Eos # (0.0-0.7) K/uL Baso # (0.0-0.2) K/uL Sodium (132-148) mmol/L Potassium (3.6-5.2) mmol/L Chloride (98-107) mmol/L Carbon Dioxide (22-30) mmol/L Anion Gap (10-20) BUN (9-20) mg/dL Creatinine (0.8-1.5) mg/dL Est GFR ( Amer) Est GFR (Non-Af Amer) Random Glucose (75-110) mg/dL Calcium (8.6-10.4) mg/dl Phosphorus (2.5-4.5) mg/dL Magnesium (1.6-2.3) mg/dL Total Bilirubin (0.2-1.3) mg/dL AST (17-59) U/L ALT (21-72) U/L Alkaline Phosphatase (38-126) U/L Ammonia (9-33) umol/L Total Protein (6.3-8.3) g/dL Albumin (3.5-5.0) g/dL Globulin (2.2-3.9) gm/dL Albumin/Globulin Ratio (1.0-2.1) Laboratory Results - last 24 hr 02/19/17 02/20/17 02/20/17 20:31 06:31 06:31 WBC 6.8 D 5.6 RBC 2.93 L 2.79 L Hgb 8.5 L 8.2 L Hct 25.7 L 24.6 L MCV 87.7 88.1 MCH 28.9 29.3 MCHC 33.0 33.2 RDW 18.0 H 17.2 H Plt Count 107 L 113 L MPV 9.9 10.1 Neut % (Auto) Lymph % (Auto) [place]phill % (Auto) Eos % (Auto) Baso % (Auto) Neut # Lymph # Hemphill # Eos # Baso # Sodium 133 Potassium 4.1 Chloride 95 L Carbon Dioxide 24 Anion Gap 18 BUN 31 H Creatinine 4.4 H Est GFR ( Amer) 18 Est GFR (Non-Af Amer) 15 Random Glucose 75 Calcium 6.9 L Phosphorus 2.6 Magnesium 1.7 Total Bilirubin 1.3 AST 74 H D ALT 33 Alkaline Phosphatase 119 Ammonia Total Protein 6.6 Albumin 3.1 L Globulin 3.5 Albumin/Globulin Ratio 0.9 L 02/20/17 02/20/17 11:42 12:45 WBC 5.0 RBC 2.71 L Hgb 8.0 L Hct 23.8 L MCV 87.9 MCH 29.5 MCHC 33.5 RDW 17.4 H Plt Count 121 L MPV 10.0 Neut % (Auto) 73.0 Lymph % (Auto) 12.2 L [place]phill % (Auto) 10.5 H Eos % (Auto) 3.3 Baso % (Auto) 1.0 Neut # 3.6 Lymph # 0.6 L Hemphill # 0.5 Eos # 0.2 Baso # 0.1 Sodium Potassium Chloride Carbon Dioxide Anion Gap BUN Creatinine Est GFR ( Amer) Est GFR (Non-Af Amer) Random Glucose Calcium Phosphorus Magnesium Total Bilirubin AST ALT Alkaline Phosphatase Ammonia 142 H Total Protein Albumin Globulin Albumin/Globulin Ratio Review of Systems - Review of Systems Systems not reviewed;Unavailable: Altered Mental Status Critical Care Progress Note - Nutrition Nutrition: Nutrition Category Date Time Status NPO Diet [DIET] Diets 02/19/17 Lunch Active Assessment/Plan (1) UGI bleed Current Visit: Yes Status: Acute Comment: Secondary to esophageal varices status post EGD and banding of varices No further bleeding Monitor H&H Continue octreotide and Protonix (2) Hepatic encephalopathy Current Visit: Yes Status: Acute Comment: Elevated ammonia level and started on lactulose (3) Anemia Current Visit: Yes Status: Acute (4) ESRD (end stage renal disease) on dialysis Current Visit: Yes Status: Acute
--- NOTE | 2017-02-20 14:51 | RAD ---
HISTORY: abdom pain COMPARISON: Comparison is made to the previous CT of the abdomen dated 01/25/2017 FINDINGS: BOWEL: No evidence of high-grade bowel obstruction. BONES: No evidence of acute pathology in the osseous structures. Possible mild osteopenia. OTHER FINDINGS: There is catheter seen overlying the right mid abdomen extending to the heart. There are postsurgical changes and vascular calcifications seen in the mid and lower abdomen P IMPRESSION: No evidence of acute pathology in the abdomen. If a indicated further assessment by CT may be obtained.
--- NOTE | 2017-02-20 19:42 | CP.PCM.PN ---
Subjective - Date & Time of Evaluation Date of Evaluation: 02/20/17 Time of Evaluation: 12:20 - Subjective Subjective: clinically same Objective - Vital Signs/Intake and Output Vital Signs (last 24 hours): Temp Pulse Resp BP Pulse Ox 98.8 F 71 9 L 106/55 L 94 L 02/20/17 16:00 02/20/17 19:15 02/20/17 19:15 02/20/17 19:04 02/20/17 19:15 Intake and Output: 02/20/17 02/21/17 18:59 06:59 Intake Total 180 15 Output Total 0 0 Balance 180 15 - Medications Medications: Current Medications Octreotide Acetate 1,250 mcg/ (Sodium Chloride) 252.5 mls @ 5.05 mls/hr IV .Q24H ROHAN PRN Reason: 25 MCG/HR Last Admin: 02/20/17 05:46 Dose: Not Given Pantoprazole Sodium 80 mg/ (Sodium Chloride) 100 mls @ 10 mls/hr IVPB .Q10H ROHAN PRN Reason: 8 MG/HR Last Admin: 02/20/17 16:13 Dose: 10 mls/hr Cefazolin Sodium/Dextrose (Ancef Iv 1 Gm Duplex) 1 gm in 50 mls @ 100 mls/hr IVPB QAM ROHAN Last Admin: 02/20/17 10:30 Dose: 100 mls/hr Lactulose (Enulose) 20 gm NG Q8 ROHAN Last Admin: 02/20/17 15:46 Dose: 20 gm Ondansetron HCl (Zofran Inj) 4 mg IVP Q8H PRN PRN Reason: Nausea/Vomiting - Labs Labs: 02/20/17 11:42 02/20/17 06:31 PT 17.3 SECONDS (9.7-12.2) H 02/19/17 01:03 INR 1.5 02/19/17 01:03 APTT 33 SECONDS (21-34) 02/19/17 01:03 - Constitutional Appears: Well - Head Exam Head Exam: ATRAUMATIC, NORMAL INSPECTION, NORMOCEPHALIC - Eye Exam Eye Exam: EOMI, Normal appearance, PERRL Pupil Exam: NORMAL ACCOMODATION, PERRL - ENT Exam ENT Exam: Mucous Membranes Moist, Normal Exam - Neck Exam Neck Exam: Full ROM, Normal Inspection. absent: Lymphadenopathy - Respiratory Exam Respiratory Exam: Decreased Breath Sounds - Cardiovascular Exam Cardiovascular Exam: REGULAR RHYTHM, +S1, +S2 - GI/Abdominal Exam GI & Abdominal Exam: Soft, Diminished Bowel Sounds - Rectal Exam Rectal Exam: Deferred
[2017-02-21 01:04] LABS: HEMATOCRIT 25.6 % (35.0-51.0); MEAN CELL VOLUME 88.5 fL (80.0-94.0); MEAN CORPUSCULAR HEMOGLOBIN 29.4 pg (27.0-31.0); MEAN CORPUSCULAR HGB CONC 33.2 g/dL (33.0-37.0); MEAN PLATELET VOLUME 9.6 fL (7.2-11.7); WHITE BLOOD COUNT 5.4 K/uL (4.8-10.8)
[2017-02-21 01:13] LABS: INR 1.4
[2017-02-21 01:30] LABS: MAGNESIUM 1.8 mg/dL (1.6-2.3); PHOSPHOROUS 3.3 mg/dL (2.5-4.5)
--- NOTE | 2017-02-21 01:31 | CT ---
EXAM: CT Abdomen and Pelvis Without Intravenous Contrast EXAM DATE/TIME: 02/21/2017 10:31 PM CLINICAL HISTORY: 46 years old, male; Signs and symptoms; Bloating; Patient HX: Altered mental status , dialysis pt. Hep c; Additional info: Abd distension TECHNIQUE: Axial computed tomography images of the abdomen and pelvis without intravenous contrast. All CT scans at this facility use one or more dose reduction techniques, viz.: automated exposure control; ma/kV adjustment per patient size (including targeted exams where dose is matched to indication; i.e. head); or iterative reconstruction technique. Coronal and sagittal reformatted images were created and reviewed. COMPARISON: Prior CT abdomen and pelvis of 01/25/2017 FINDINGS: LIMITATIONS: Streak artifact from the patient's arms and significant motion artifact. LOWER THORAX: Small to moderate right pleural effusion, also seen on the prior exam. ABDOMEN: LIVER: Liver again appears enlarged. It has a mildly lobulated contour, and there is hypertrophy of the left lobe, findings which could be secondary to mild cirrhotic change. GALLBLADDER AND BILE DUCTS: No CT evidence of acute cholecystitis. No evidence of significant biliary ductal dilatation. PANCREAS: No CT evidence of acute pancreatitis. SPLEEN: Splenomegaly, with the spleen measuring 14 cm in length ADRENALS: No acute abnormality of the adrenal glands identified. KIDNEYS AND URETERS: Kidneys appear markedly atrophic, and are difficult to see. STOMACH AND BOWEL: The bowel is overall not well evaluated, due to motion artifact. There is small bowel dilatation, with multiple fluid filled and top normal caliber to mildly dilated small bowel loops seen. There are some decompressed distal ileal small bowel loops visualized. Findings could be due to either a mild small bowel obstruction versus an ileus of the small bowel. No transition point is visible, however. There are postoperative changes involving the small bowel, with surgical anastomosis seen in a right abdominal small bowel loop. Suspect wall thickening of the right colon, involving the hepatic flexure and proximal transverse colon, most likely secondary to segmental colitis. Otherwise, no definite acute abnormality of the bowel is seen. No acute abnormality of the stomach or duodenum identified. APPENDIX: Normal appendix is not seen, however, there are no obvious focal inflammatory changes visualized in the expected location of the appendix to suggest appendicitis. Recommend clinical correlation. PELVIS: BLADDER: No acute abnormality of the bladder identified. REPRODUCTIVE: No acute abnormality of the reproductive organs is seen. ABDOMEN and PELVIS: INTRAPERITONEAL SPACE: No evidence of free intraperitoneal air or fluid. RETROPERITONEAL SPACE: Stable appearance of chronic linear calcifications calcifications in the right retroperitoneum, abutting the distal abdominal aorta on the right and the right common iliac artery. Findings are of uncertain etiology, however, appear unchanged. No evidence of retroperitoneal hemorrhage. BONES/JOINTS: Bony structures are diffusely osteopenic. No acute fractures or other acute bony abnormality visualized. SOFT TISSUES: Diffuse, mild subcutaneous edema/anasarca. Stable appearance of chronic calcifications in the left anterior hip soft tissues. VASCULATURE: Extensive atherosclerotic calcification. No evidence of abdominal aortic aneurysm. LYMPH NODES: No evidence of diffuse lymphadenopathy. TUBES, LINES AND DEVICES: Again seen is a right translumbar hemodialysis catheter, which enters the IVC, and then courses through the right heart, into the superior vena cava. The distal end of the catheter is not included on this exam. Small calcifications are seen abutting the catheter, unchanged in appearance. Nasogastric tube is in place. IMPRESSION: - Limited exam secondary to motion artifact and unenhanced technique. - Suspect wall thickening/segmental colitis involving the right colon. - Small bowel dilatation, which could be secondary to an ileus versus a mild SBO. - A repeat CT and with enteric contrast may be helpful for better evaluation of the above findings, as clinically indicated. - Otherwise, no evidence of significant acute process. - Small to moderate right pleural effusion, also seen on a prior exam. - Translumbar hemodialysis catheter remains in place. - See above for remaining findings.
[2017-02-21] MEDS: Pantoprazole 80 MG in Sodium Chloride 0.9% 100 ML IVPB SCH ×4 (03:26→22:00)
[2017-02-21 06:49] LABS: POTASSIUM 3.7 mmol/L (3.6-5.2)
[2017-02-21 06:51] LABS: BILIRUBIN,TOTAL 1.3 mg/dL (0.2-1.3)
[2017-02-21 06:52] LABS: CALCIUM 7.1 mg/dl (8.6-10.4); TOTAL PROTEIN 7.4 g/dL (6.3-8.3)
[2017-02-21 06:57] LABS: ALB/GLOB RATIO 0.9 (1.0-2.1)
[2017-02-21 06:59] LABS: BASO # 0.2 K/uL (0.0-0.2); BASO % 2.3 % (0.0-2.0); EOS # 0.3 K/uL (0.0-0.7); EOS % 3.6 % (0.0-4.0); HEMATOCRIT 27.5 % (35.0-51.0); LYMPH # 0.9 K/uL (1.0-4.3); LYMPH % 11.5 % (20.0-40.0); MEAN CELL VOLUME 89.1 fL (80.0-94.0); MEAN CORPUSCULAR HEMOGLOBIN 29.1 pg (27.0-31.0); MEAN CORPUSCULAR HGB CONC 32.6 g/dL (33.0-37.0); MEAN PLATELET VOLUME 9.9 fL (7.2-11.7); MONO # 0.9 K/uL (0.0-0.8); MONO % 11.5 % (0.0-10.0); NRBC % 0.2 % (0.0-2.0); RED CELL DISTRIBUTION WIDTH 17.9 % (11.5-14.5); WHITE BLOOD COUNT 7.4 K/uL (4.8-10.8)
[2017-02-21] MEDS ORDERED: Magnesium Sulfate 1 gm in D5W 1 GM/100 ML BAG IVPB ONE (07:50)
--- NOTE | 2017-02-21 08:13 | CT ---
PROCEDURE: CT HEAD WITHOUT CONTRAST. HISTORY: Altered mental status COMPARISON: None available. TECHNIQUE: Axial computed tomography images were obtained through the head/brain without intravenous contrast. Radiation dose: Total exam DLP = 982 mGy-cm. This CT exam was performed using one or more of the following dose reduction techniques: Automated exposure control, adjustment of the mA and/or kV according to patient size, and/or use of iterative reconstruction technique. FINDINGS: HEMORRHAGE: No intracranial hemorrhage. BRAIN: No mass effect or edema. No atrophy or chronic microvascular ischemic changes. VENTRICLES: Unremarkable. No hydrocephalus. CALVARIUM: Unremarkable. PARANASAL SINUSES: Mild mucosal thickening and fluid level in the left sphenoid sinus. MASTOID AIR CELLS: Unremarkable as visualized. No inflammatory changes. OTHER FINDINGS: Intracranial vascular calcification noted. IMPRESSION: No acute intracranial abnormality. Left sphenoid sinus disease. These findings were preliminarily reported by doctor Lore Novoa from [facility] at 12:27 a.m. on 02/21/2017 from [facility].
[2017-02-21] MEDS: cefTRIAXone IV 1 gm in Dextros 50 ML IVPB SCH (10:48)
--- NOTE | 2017-02-21 11:06 | CP.PCM.PN ---
Subjective - Date & Time of Evaluation Date of Evaluation: 02/21/17 Time of Evaluation: 11:03 - Subjective Subjective: Lethargic still- opens eyes, not comminicating On treatment for hepatic encephalopathy with lactulose Due for dialysis TTS No sedation given Varices seen on EGD? No more overt bleeding Objective - Vital Signs/Intake and Output Vital Signs (last 24 hours): Temp Pulse Resp BP Pulse Ox 98 F 73 11 L 121/82 100 02/21/17 08:00 02/21/17 09:04 02/21/17 09:04 02/21/17 09:04 02/21/17 09:04 Intake and Output: 02/21/17 02/21/17 06:59 18:59 Intake Total 180 45 Output Total 0 Balance 180 45 - Medications Medications: Current Medications Octreotide Acetate 1,250 mcg/ (Sodium Chloride) 252.5 mls @ 5.05 mls/hr IV .Q24H ROHAN PRN Reason: 25 MCG/HR Last Admin: 02/21/17 10:40 Dose: 5.05 mls/hr Pantoprazole Sodium 80 mg/ (Sodium Chloride) 100 mls @ 10 mls/hr IVPB .Q10H ROHAN PRN Reason: 8 MG/HR Last Admin: 02/21/17 03:26 Dose: 10 mls/hr Ceftriaxone Sodium (Rocephin Iv 1 Gm Duplex) 50 mls @ 100 mls/hr IVPB DAILY ROHAN Last Admin: 02/21/17 10:48 Dose: 100 mls/hr Lactulose (Enulose) 20 gm NG Q8 ROHAN Last Admin: 02/21/17 10:36 Dose: 20 gm Lactulose (Enulose) 20 gm PO Q2H ROHAN Stop: 02/21/17 12:01 Last Admin: 02/21/17 10:36 Dose: 20 gm Ondansetron HCl (Zofran Inj) 4 mg IVP Q8H PRN PRN Reason: Nausea/Vomiting Last Admin: 02/21/17 10:39 Dose: 4 mg - Labs Labs: 02/21/17 06:28 02/21/17 06:28 PT 15.7 SECONDS (9.7-12.2) H 02/21/17 01:01 INR 1.4 02/21/17 01:01 APTT 29 SECONDS (21-34) 02/21/17 01:01 - Constitutional Appears: No Acute Distress, Confused, Chronically Ill - Head Exam Head Exam: ATRAUMATIC, NORMAL INSPECTION - Eye Exam Eye Exam: EOMI, Normal appearance - Neck Exam Neck Exam: Normal Inspection. absent: Tenderness - Respiratory Exam Respiratory Exam: Clear to Ausculation Bilateral, NORMAL BREATHING PATTERN - Cardiovascular Exam Cardiovascular Exam: REGULAR RHYTHM, +S1 - GI/Abdominal Exam GI & Abdominal Exam: Distended, Soft. absent: Tenderness - Extremities Exam Extremities Exam: Normal Inspection, Tenderness - Neurological Exam Neurological Exam: Altered, CN II-XII Intact - Skin Skin Exam: Dry, Warm Assessment and Plan (1) Chronic hepatitis B Status: Acute (2) Altered mental status Status: Acute (3) ESRD (end stage renal disease) on dialysis Status: Acute (4) Hepatic encephalopathy Status: Acute (5) Hypertension Status: Acute - Assessment and Plan (Free Text) Plan: Monitor for GI bleeding- on PPIs Lactulose for encephalopathy Dialysis TTS
--- NOTE | 2017-02-21 11:08 | CP.CCUPN ---
CCU Subjective - Physician Review Subjective (Free Text): Patient was seen and examined at bedside. Patient was very lethargic and non- verbal. Unable to evaluate adequate ROS due to patient current clinical status. Critical Care Time Spent (in minutes): 35 CCU Objective - Vital Signs / Intake & Output Vital Signs (Last 4 hours): Vital Signs Temp Pulse Resp BP Pulse Ox 02/21/17 09:04 73 11 L 121/82 100 02/21/17 09:00 77 11 L 100 02/21/17 08:45 74 11 L 100 02/21/17 08:34 72 10 L 117/75 100 02/21/17 08:30 75 11 L 100 02/21/17 08:15 77 10 L 100 02/21/17 08:04 77 11 L 125/77 02/21/17 08:00 98 F 79 13 100/62 100 02/21/17 07:45 66 9 L 100 02/21/17 07:34 67 9 L 116/68 100 02/21/17 07:30 66 8 L 100 02/21/17 07:15 66 8 L 97 Intake and Output (Last 8hrs): Intake & Output 02/20/17 02/21/17 02/21/17 22:59 06:59 14:59 Intake Total 120 120 45 Output Total 0 Balance 120 120 45 Weight 109 lb 2 oz Intake: Intake, IV Amount 120 120 45 left forearm#2 port 1 80 80 30 left forearm#2 port 2 40 40 15 Output: Emesis 0 Other: # Bowel Movements 1 1 1 - Physical Exam Head: Positive for: Atraumatic, Normocephalic Respiratory/Chest: Positive for: Good Air Exchange. Negative for: Respiratory Distress, Accessory Muscle Use Cardiovascular: Positive for: Regular Rate and Rhythm Abdomen: Positive for: Distention, Normal Bowel Sounds. Negative for: Peritoneal Signs Upper Extremity: Positive for: Normal Inspection Lower Extremity: Positive for: Normal Inspection Neurological: Negative for: GCS=15, Speech Normal Psychiatric: Negative for: Alert, Oriented x 3 - Medications Active Medications: Active Medications Generic Name Dose Route Start Last Admin Trade Name Freq PRN Reason Stop Dose Admin Octreotide Acetate 1,250 mcg/ 252.5 mls @ 5.05 mls/hr 02/19/17 05:15 10:40 Sodium Chloride IV 5.05 mls/hr .Q24H ROHAN Administration 25 MCG/HR Pantoprazole Sodium 80 mg/ 100 mls @ 10 mls/hr 02/19/17 10:00 02/21/17 03:26 Sodium Chloride IVPB 10 mls/hr .Q10H ROHAN Administration 8 MG/HR Ceftriaxone Sodium 50 mls @ 100 mls/hr 02/21/17 10:00 02/21/17 10:48 Rocephin Iv 1 Gm Duplex IVPB 100 mls/hr DAILY ROHAN Administration Lactulose 20 gm 02/20/17 15:30 02/21/17 10:36 Enulose NG 20 gm Q8 ROHAN Administration Lactulose 20 gm 02/21/17 08:00 02/21/17 11:05 Enulose PO 02/21/17 12:01 20 gm Q2H ROHAN Administration Ondansetron HCl 4 mg 02/19/17 02:11 02/21/17 10:39 Zofran Inj IVP 4 mg Q8H PRN Administration Nausea/Vomiting - Patient Studies Lab Studies: Microbiology Studies 02/19/17 05:18 MRSA Culture (Admit) - Final Naris MRSA NOT DETECTED Lab Studies 02/21/17 02/21/17 02/21/17 Range/Units 10:29 06:28 06:28 WBC 7.4 (4.8-10.8) K/uL RBC 3.09 L (4.40-5.90) Mil/uL Hgb 9.0 L (12.0-18.0) g/dL Hct 27.5 L (35.0-51.0) % MCV 89.1 (80.0-94.0) fL MCH 29.1 (27.0-31.0) pg MCHC 32.6 L (33.0-37.0) g/dL RDW 17.9 H (11.5-14.5) % Plt Count 141 (130-400) K/uL MPV 9.9 (7.2-11.7) fL Neut % (Auto) 71.1 (50.0-75.0) % Lymph % (Auto) 11.5 L (20.0-40.0) % Harlan % (Auto) 11.5 H (0.0-10.0) % Eos % (Auto) 3.6 (0.0-4.0) % Baso % (Auto) 2.3 H (0.0-2.0) % Neut # 5.3 (1.8-7.0) K/uL Lymph # 0.9 L (1.0-4.3) K/uL Harlan # 0.9 H (0.0-0.8) K/uL Eos # 0.3 (0.0-0.7) K/uL Baso # 0.2 (0.0-0.2) K/uL PT (9.7-12.2) SECONDS INR APTT (21-34) SECONDS Sodium 139 (132-148) mmol/L Potassium 3.7 (3.6-5.2) mmol/L Chloride 96 L (98-107) mmol/L Carbon Dioxide 23 (22-30) mmol/L Anion Gap 24 H (10-20) BUN 41 H (9-20) mg/dL Creatinine 6.8 H (0.8-1.5) mg/dL Est GFR ( Amer) 11 Est GFR (Non-Af Amer) 9 POC Glucose (mg/dL) 136 H (65-110) mg/dL Random Glucose 109 (75-110) mg/dL Calcium 7.1 L (8.6-10.4) mg/dl Phosphorus (2.5-4.5) mg/dL Magnesium (1.6-2.3) mg/dL Total Bilirubin 1.3 (0.2-1.3) mg/dL AST 72 H (17-59) U/L ALT 36 (21-72) U/L Alkaline Phosphatase 137 H (38-126) U/L Ammonia (9-33) umol/L Total Protein 7.4 (6.3-8.3) g/dL Albumin 3.4 L (3.5-5.0) g/dL Globulin 4.0 H (2.2-3.9) gm/dL Albumin/Globulin Ratio 0.9 L (1.0-2.1) 02/21/17 02/21/17 02/21/17 Range/Units 05:25 01:01 01:01 WBC (4.8-10.8) K/uL RBC (4.40-5.90) Mil/uL Hgb (12.0-18.0) g/dL Hct (35.0-51.0) % MCV (80.0-94.0) fL MCH (27.0-31.0) pg MCHC (33.0-37.0) g/dL RDW (11.5-14.5) % Plt Count (130-400) K/uL MPV (7.2-11.7) fL Neut % (Auto) (50.0-75.0) % Lymph % (Auto) (20.0-40.0) % Harlan % (Auto) (0.0-10.0) % Eos % (Auto) (0.0-4.0) % Baso % (Auto) (0.0-2.0) % Neut # (1.8-7.0) K/uL Lymph # (1.0-4.3) K/uL Harlan # (0.0-0.8) K/uL Eos # (0.0-0.7) K/uL Baso # (0.0-0.2) K/uL PT 15.7 H (9.7-12.2) SECONDS INR 1.4 APTT 29 (21-34) SECONDS Sodium (132-148) mmol/L Potassium (3.6-5.2) mmol/L Chloride (98-107) mmol/L Carbon Dioxide (22-30) mmol/L Anion Gap (10-20) BUN (9-20) mg/dL Creatinine (0.8-1.5) mg/dL Est GFR ( Amer) Est GFR (Non-Af Amer) POC Glucose (mg/dL) (65-110) mg/dL Random Glucose (75-110) mg/dL Calcium (8.6-10.4) mg/dl Phosphorus 3.3 (2.5-4.5) mg/dL Magnesium 1.8 (1.6-2.3) mg/dL Total Bilirubin (0.2-1.3) mg/dL AST (17-59) U/L ALT (21-72) U/L Alkaline Phosphatase (38-126) U/L Ammonia 45 H D (9-33) umol/L Total Protein (6.3-8.3) g/dL Albumin (3.5-5.0) g/dL Globulin (2.2-3.9) gm/dL Albumin/Globulin Ratio (1.0-2.1) 02/21/17 02/21/17 02/20/17 Range/Units 01:01 01:01 12:45 WBC 5.4 (4.8-10.8) K/uL RBC 2.89 L (4.40-5.90) Mil/uL Hgb 8.5 L (12.0-18.0) g/dL Hct 25.6 L (35.0-51.0) % MCV 88.5 (80.0-94.0) fL MCH 29.4 (27.0-31.0) pg MCHC 33.2 (33.0-37.0) g/dL RDW 18.0 H (11.5-14.5) % Plt Count 123 L (130-400) K/uL MPV 9.6 (7.2-11.7) fL Neut % (Auto) (50.0-75.0) % Lymph % (Auto) (20.0-40.0) % Harlan % (Auto) (0.0-10.0) % Eos % (Auto) (0.0-4.0) % Baso % (Auto) (0.0-2.0) % Neut # (1.8-7.0) K/uL Lymph # (1.0-4.3) K/uL Harlan # (0.0-0.8) K/uL Eos # (0.0-0.7) K/uL Baso # (0.0-0.2) K/uL PT (9.7-12.2) SECONDS INR APTT (21-34) SECONDS Sodium (132-148) mmol/L Potassium (3.6-5.2) mmol/L Chloride (98-107) mmol/L Carbon Dioxide (22-30) mmol/L Anion Gap (10-20) BUN (9-20) mg/dL Creatinine (0.8-1.5) mg/dL Est GFR ( Amer) Est GFR (Non-Af Amer) POC Glucose (mg/dL) (65-110) mg/dL Random Glucose (75-110) mg/dL Calcium (8.6-10.4) mg/dl Phosphorus (2.5-4.5) mg/dL Magnesium (1.6-2.3) mg/dL Total Bilirubin (0.2-1.3) mg/dL AST (17-59) U/L ALT (21-72) U/L Alkaline Phosphatase (38-126) U/L Ammonia 98 H D 142 H (9-33) umol/L Total Protein (6.3-8.3) g/dL Albumin (3.5-5.0) g/dL Globulin (2.2-3.9) gm/dL Albumin/Globulin Ratio (1.0-2.1) 02/20/17 Range/Units 11:42 WBC 5.0 (4.8-10.8) K/uL RBC 2.71 L (4.40-5.90) Mil/uL Hgb 8.0 L (12.0-18.0) g/dL Hct 23.8 L (35.0-51.0) % MCV 87.9 (80.0-94.0) fL MCH 29.5 (27.0-31.0) pg MCHC 33.5 (33.0-37.0) g/dL RDW 17.4 H (11.5-14.5) % Plt Count 121 L (130-400) K/uL MPV 10.0 (7.2-11.7) fL Neut % (Auto) 73.0 (50.0-75.0) % Lymph % (Auto) 12.2 L (20.0-40.0) % Harlan % (Auto) 10.5 H (0.0-10.0) % Eos % (Auto) 3.3 (0.0-4.0) % Baso % (Auto) 1.0 (0.0-2.0) % Neut # 3.6 (1.8-7.0) K/uL Lymph # 0.6 L (1.0-4.3) K/uL Harlan # 0.5 (0.0-0.8) K/uL Eos # 0.2 (0.0-0.7) K/uL Baso # 0.1 (0.0-0.2) K/uL PT (9.7-12.2) SECONDS INR APTT (21-34) SECONDS Sodium (132-148) mmol/L Potassium (3.6-5.2) mmol/L Chloride (98-107) mmol/L Carbon Dioxide (22-30) mmol/L Anion Gap (10-20) BUN (9-20) mg/dL Creatinine (0.8-1.5) mg/dL Est GFR ( Amer) Est GFR (Non-Af Amer) POC Glucose (mg/dL) (65-110) mg/dL Random Glucose (75-110) mg/dL Calcium (8.6-10.4) mg/dl Phosphorus (2.5-4.5) mg/dL Magnesium (1.6-2.3) mg/dL Total Bilirubin (0.2-1.3) mg/dL AST (17-59) U/L ALT (21-72) U/L Alkaline Phosphatase (38-126) U/L Ammonia (9-33) umol/L Total Protein (6.3-8.3) g/dL Albumin (3.5-5.0) g/dL Globulin (2.2-3.9) gm/dL Albumin/Globulin Ratio (1.0-2.1) Laboratory Results - last 24 hr 02/20/17 02/20/17 02/21/17 11:42 12:45 01:01 WBC 5.0 5.4 RBC 2.71 L 2.89 L Hgb 8.0 L 8.5 L Hct 23.8 L 25.6 L MCV 87.9 88.5 MCH 29.5 29.4 MCHC 33.5 33.2 RDW 17.4 H 18.0 H Plt Count 121 L 123 L MPV 10.0 9.6 Neut % (Auto) 73.0 Lymph % (Auto) 12.2 L Harlan % (Auto) 10.5 H Eos % (Auto) 3.3 Baso % (Auto) 1.0 Neut # 3.6 Lymph # 0.6 L Harlan # 0.5 Eos # 0.2 Baso # 0.1 PT INR APTT Sodium Potassium Chloride Carbon Dioxide Anion Gap BUN Creatinine Est GFR ( Amer) Est GFR (Non-Af Amer) POC Glucose (mg/dL) Random Glucose Calcium Phosphorus Magnesium Total Bilirubin AST ALT Alkaline Phosphatase Ammonia 142 H Total Protein Albumin Globulin Albumin/Globulin Ratio 02/21/17 02/21/17 02/21/17 01:01 01:01 01:01 WBC RBC Hgb Hct MCV MCH MCHC RDW Plt Count MPV Neut % (Auto) Lymph % (Auto) Harlan % (Auto) Eos % (Auto) Baso % (Auto) Neut # Lymph # Harlan # Eos # Baso # PT 15.7 H INR 1.4 APTT 29 Sodium Potassium Chloride Carbon Dioxide Anion Gap BUN Creatinine Est GFR ( Amer) Est GFR (Non-Af Amer) POC Glucose (mg/dL) Random Glucose Calcium Phosphorus 3.3 Magnesium 1.8 Total Bilirubin AST ALT Alkaline Phosphatase Ammonia 98 H D Total Protein Albumin Globulin Albumin/Globulin Ratio 02/21/17 02/21/17 02/21/17 05:25 06:28 06:28 WBC 7.4 RBC 3.09 L Hgb 9.0 L Hct 27.5 L MCV 89.1 MCH 29.1 MCHC 32.6 L RDW 17.9 H Plt Count 141 MPV 9.9 Neut % (Auto) 71.1 Lymph % (Auto) 11.5 L Harlan % (Auto) 11.5 H Eos % (Auto) 3.6 Baso % (Auto) 2.3 H Neut # 5.3 Lymph # 0.9 L Harlan # 0.9 H Eos # 0.3 Baso # 0.2 PT INR APTT Sodium 139 Potassium 3.7 Chloride 96 L Carbon Dioxide 23 Anion Gap 24 H BUN 41 H Creatinine 6.8 H Est GFR ( Amer) 11 Est GFR (Non-Af Amer) 9 POC Glucose (mg/dL) Random Glucose 109 Calcium 7.1 L Phosphorus Magnesium Total Bilirubin 1.3 AST 72 H ALT 36 Alkaline Phosphatase 137 H Ammonia 45 H D Total Protein 7.4 Albumin 3.4 L Globulin 4.0 H Albumin/Globulin Ratio 0.9 L 02/21/17 10:29 WBC RBC Hgb Hct MCV MCH MCHC RDW Plt Count MPV Neut % (Auto) Lymph % (Auto) Harlan % (Auto) Eos % (Auto) Baso % (Auto) Neut # Lymph # Harlan # Eos # Baso # PT INR APTT Sodium Potassium Chloride Carbon Dioxide Anion Gap BUN Creatinine Est GFR ( Amer) Est GFR (Non-Af Amer) POC Glucose (mg/dL) 136 H Random Glucose Calcium Phosphorus Magnesium Total Bilirubin AST ALT Alkaline Phosphatase Ammonia Total Protein Albumin Globulin Albumin/Globulin Ratio Review of Systems - Review of Systems Review of Systems: Unable to evaluate adequate ROS as patient is very lethargic and non-verbal at the moment Critical Care Progress Note - Ventilator Checklist Head of Bed 30 Degrees: No Daily Sedation Vacation: No Daily Assessment of Readiness to Wean: No Daily Spontaneous Breathing Trial: No PUD Prophalyxis: Yes DVT Prophylaxis: Yes - Nutrition Nutrition: Nutrition Category Date Time Status NPO Diet [DIET] Diets 02/19/17 Lunch Active Assessment/Plan - Assessment and Plan (Free Text) Assessment: Patient is a 46 year old male with past medical history of chronic HBV, ESRD, HTN, who presented to the ED with complaints of hematemesis and episodes of black stool and admitted for consideration of acute GI bleed Plan: Neuro: Lethargic possibly secondary to hepatic encephalopathy Hyperammonemia (Trending down) Medication/Management: * Lactulose 20gm NG Q8 * Neuro checks Q6H * Continue to monitor ammonia level with repeat labs Cardio: Hx of HTN Medication/Management: * Stable Pulm: No acute issues GI: Acute GI bleed GI consult, Dr. Crowley-----> Help appreciated * Endoscopy: GRADE III varices in the lower third esophagus; 3 bands placed with incomplete eradication of varices * CT Abdomen/Pelvis ( 02/21/17): Suspect wall thickening/ segmental colitis involving right colon Medication/Management: * Protonix drip 8mg/hr * SandoSTATIN 1, 250mcg IV @ 25mcg/hr * Rocephin 1gm IVP @ 100mls/hr daily * Continue to monitor H/H Endo: No acute issues Renal: ESRD, Hemodialysis TTS ID: Colitis CT Abdomen/Pelvis ( 02/21/17): Suspect wall thickening/ segmental colitis involving right colon Medication/Management: * Rocephin 1gm IVPB @ 100mls/hr daily Prophylaxis: DVT: SCDs, anticoagulation contraindication due to acute GI bleed. GI: Protonix drip
--- NOTE | 2017-02-21 12:49 | CARD ---
APPROVED REPORT EKG Measurement Heart [id number] MA [id number] [id number] <Conclusion> Normal sinus rhythm T wave abnormality, consider anterolateral ischemia Prolonged QT Abnormal ECG
[2017-02-21 18:59] LABS: BASO # 0.1 K/uL (0.0-0.2); BASO % 1.1 % (0.0-2.0); EOS # 0.2 K/uL (0.0-0.7); EOS % 2.9 % (0.0-4.0); HEMATOCRIT 26.7 % (35.0-51.0); LYMPH # 0.8 K/uL (1.0-4.3); LYMPH % 13.6 % (20.0-40.0); MEAN CELL VOLUME 89.6 fL (80.0-94.0); MEAN CORPUSCULAR HEMOGLOBIN 29.2 pg (27.0-31.0); MEAN CORPUSCULAR HGB CONC 32.6 g/dL (33.0-37.0); MEAN PLATELET VOLUME 9.5 fL (7.2-11.7); MONO # 0.6 K/uL (0.0-0.8); MONO % 11.1 % (0.0-10.0); NRBC % 0.3 % (0.0-2.0); RED CELL DISTRIBUTION WIDTH 18.1 % (11.5-14.5); WHITE BLOOD COUNT 5.8 K/uL (4.8-10.8)
[2017-02-21 19:04] LABS: POTASSIUM 3.7 mmol/L (3.6-5.2)
[2017-02-21 19:06] LABS: ALB/GLOB RATIO 0.9 (1.0-2.1); BILIRUBIN,TOTAL 1.1 mg/dL (0.2-1.3); TOTAL PROTEIN 7.2 g/dL (6.3-8.3)
[2017-02-21 19:07] LABS: CALCIUM 6.8 mg/dl (8.6-10.4)
--- NOTE | 2017-02-21 20:24 | CP.PCM.PN ---
Subjective - Date & Time of Evaluation Date of Evaluation: 02/21/17 Time of Evaluation: 20:18 - Subjective Subjective: No bleeding, confused and encephalopathic with high NH3. Weekend events noted and discussed with coverage Objective - Vital Signs/Intake and Output Vital Signs (last 24 hours): Temp Pulse Resp BP Pulse Ox 97.9 F 66 10 L 110/80 100 02/21/17 16:00 02/21/17 18:45 02/21/17 18:45 02/21/17 18:38 02/21/17 18:45 Intake and Output: 02/21/17 02/22/17 18:59 06:59 Intake Total 425 Output Total 200 Balance 225 - Medications Medications: Current Medications Octreotide Acetate 1,250 mcg/ (Sodium Chloride) 252.5 mls @ 5.05 mls/hr IV .Q24H ROHAN PRN Reason: 25 MCG/HR Last Admin: 02/21/17 10:40 Dose: 5.05 mls/hr Pantoprazole Sodium 80 mg/ (Sodium Chloride) 100 mls @ 10 mls/hr IVPB .Q10H ROHAN PRN Reason: 8 MG/HR Last Admin: 02/21/17 13:00 Dose: 10 mls/hr Ceftriaxone Sodium (Rocephin Iv 1 Gm Duplex) 50 mls @ 100 mls/hr IVPB DAILY ROHAN Last Admin: 02/21/17 10:48 Dose: 100 mls/hr Lactulose (Enulose) 20 gm NG Q8 ROHAN Last Admin: 02/21/17 18:21 Dose: Not Given Ondansetron HCl (Zofran Inj) 4 mg IVP Q8H PRN PRN Reason: Nausea/Vomiting Last Admin: 02/21/17 10:39 Dose: 4 mg - Labs Labs: 02/21/17 18:47 02/21/17 18:47 PT 15.7 SECONDS (9.7-12.2) H 02/21/17 01:01 INR 1.4 02/21/17 01:01 APTT 29 SECONDS (21-34) 02/21/17 01:01 - Constitutional Appears: Confused - Head Exam Head Exam: ATRAUMATIC, NORMOCEPHALIC Additional comments: NGT in place - Respiratory Exam Respiratory Exam: NORMAL BREATHING PATTERN - Cardiovascular Exam Cardiovascular Exam: REGULAR RHYTHM - GI/Abdominal Exam GI & Abdominal Exam: Soft, Normal Bowel Sounds. absent: Tenderness - Back Exam Back Exam: NORMAL INSPECTION - Neurological Exam Neurological Exam: Altered Additional comments: lethargic and not purposely responding to questioning Assessment and Plan (1) Esophageal varices with bleeding Assessment & Plan: S/P banding by Dr Crowley. Unclear why NGT was inserted following placement of bands, could disrupt integrity of banding On Octreotide and no further bleeding Consider Octreotide taper after 72 hours and begin non-cardioselective B- joce if possible to decrease post bleeding mortality/morbidity by rebleeding. Repeat EGD with banding as outpatient in approx 4 weeks Caution with NGT Status: Acute (2) Chronic hepatitis B with cirrhosis Assessment & Plan: Cont Lamivudine as PCR has remained negative with no resistance shown. Status: Acute (3) Cirrhosis Assessment & Plan: Likely due to HBV. Surveillance for HCCa recommended q6 months Status: Acute (4) GI bleed Status: Acute (5) Anemia due to acute blood loss Assessment & Plan: as above Status: Acute (6) Chronic kidney disease with end stage renal failure on dialysis Status: Acute (7) Hepatic encephalopathy Assessment & Plan: encephalopathy and mental status changes related to liver disease +/- renal disease/uremia. Agree with Lactulose Status: Acute (8) Abnormal CT of the abdomen Status: Acute
[2017-02-22] MEDS: Pantoprazole 80 MG in Sodium Chloride 0.9% 100 ML IVPB SCH (02:17)
[2017-02-22 06:48] LABS: POTASSIUM 3.8 mmol/L (3.6-5.2)
[2017-02-22 06:50] LABS: ALB/GLOB RATIO 0.9 (1.0-2.1); TOTAL PROTEIN 7.3 g/dL (6.3-8.3)
[2017-02-22 06:51] LABS: CALCIUM 6.8 mg/dl (8.6-10.4); MAGNESIUM 2.2 mg/dL (1.6-2.3); PHOSPHOROUS 5.2 mg/dL (2.5-4.5)
[2017-02-22 07:10] LABS: BASO # 0.1 K/uL (0.0-0.2); BASO % 0.8 % (0.0-2.0); EOS # 0.3 K/uL (0.0-0.7); HEMATOCRIT 25.5 % (35.0-51.0); LYMPH # 0.8 K/uL (1.0-4.3); MEAN CELL VOLUME 89.6 fL (80.0-94.0); MEAN CORPUSCULAR HEMOGLOBIN 29.6 pg (27.0-31.0); MEAN PLATELET VOLUME 9.6 fL (7.2-11.7); MONO # 0.7 K/uL (0.0-0.8); MONO % 10.1 % (0.0-10.0); NRBC % 0.2 % (0.0-2.0); RED CELL DISTRIBUTION WIDTH 18.8 % (11.5-14.5); WHITE BLOOD COUNT 6.5 K/uL (4.8-10.8)
--- NOTE | 2017-02-22 09:50 | CP.PCM.PN ---
Subjective - Date & Time of Evaluation Date of Evaluation: 02/22/17 Time of Evaluation: 09:48 - Subjective Subjective: No bleeding. More alert and awake. Aware of location and who I was. Objective - Vital Signs/Intake and Output Vital Signs (last 24 hours): Temp Pulse Resp BP Pulse Ox 97.5 F L 65 11 L 109/64 97 02/22/17 08:00 02/22/17 08:15 02/22/17 08:15 02/22/17 07:59 02/22/17 08:15 Intake and Output: 02/22/17 02/22/17 06:59 18:59 Intake Total 165 15 Output Total 0 0 Balance 165 15 - Medications Medications: Current Medications Ceftriaxone Sodium (Rocephin Iv 1 Gm Duplex) 50 mls @ 100 mls/hr IVPB DAILY ROHAN Last Admin: 02/21/17 10:48 Dose: 100 mls/hr Lactulose (Enulose) 20 gm NG Q8 ROHAN Last Admin: 02/22/17 06:30 Dose: 20 gm Ondansetron HCl (Zofran Inj) 4 mg IVP Q8H PRN PRN Reason: Nausea/Vomiting Last Admin: 02/21/17 10:39 Dose: 4 mg Pantoprazole Sodium (Protonix Ec Tab) 40 mg PO Q12H ROHAN - Labs Labs: 02/22/17 06:50 02/22/17 06:28 PT 15.7 SECONDS (9.7-12.2) H 02/21/17 01:01 INR 1.4 02/21/17 01:01 APTT 29 SECONDS (21-34) 02/21/17 01:01 - Constitutional Appears: No Acute Distress - Head Exam Head Exam: ATRAUMATIC, NORMOCEPHALIC - Eye Exam Eye Exam: EOMI, PERRL - ENT Exam Additional comments: NGT in place still and clamped - Respiratory Exam Respiratory Exam: NORMAL BREATHING PATTERN - Cardiovascular Exam Cardiovascular Exam: REGULAR RHYTHM - GI/Abdominal Exam GI & Abdominal Exam: Soft, Normal Bowel Sounds. absent: Tenderness - Extremities Exam Extremities Exam: Normal Inspection - Neurological Exam Neurological Exam: Alert, Awake, Oriented x3 Assessment and Plan (1) Esophageal varices with bleeding Assessment & Plan: Begin to taper Octreotide Inderal or Nadolol to be started as bleeding prophylaxis if ok with team. Begin diet as tolerated today D/C NGT and avoid replacing due to presence of bands. (discussed today with Dr Almanzar) Status: Acute (2) Chronic hepatitis B with cirrhosis Assessment & Plan: Resume Lamivudine when able to take po Status: Chronic (3) Cirrhosis Status: Chronic (4) GI bleed Assessment & Plan: Clinically stable. Taper Octreotide and begin B-joce when able to tolerate Status: Acute (5) Anemia due to acute blood loss Status: Acute (6) Chronic kidney disease with end stage renal failure on dialysis Status: Chronic (7) Hepatic encephalopathy Assessment & Plan: Much improved today. Continue Lactulose Will likely need Xifaxan as well Begin diet as tolerated and protein restrict to 50-60gram. Status: Acute (8) Abnormal CT of the abdomen Assessment & Plan: Colitis as noted on previous admission No diarrheal symptoms or pain. Will follow. NO current plans for colonoscopy at this time. Status: Acute
[2017-02-22] MEDS: Pantoprazole 40 mg EC Tab PO SCH ×2 (10:54→21:11)
[2017-02-22] MEDS: cefTRIAXone IV 1 gm in Dextros 50 ML IVPB SCH (10:57)
--- NOTE | 2017-02-22 11:39 | CP.PCM.PN ---
Subjective - Date & Time of Evaluation Date of Evaluation: 02/22/17 Time of Evaluation: 11:37 - Subjective Subjective: seen and examined awake and alert now c/o back pain DEnies any nausea vomiting headache fevers chills sob chest pain rash for hd today Objective - Vital Signs/Intake and Output Vital Signs (last 24 hours): Temp Pulse Resp BP Pulse Ox 97.5 F L 65 11 L 109/64 97 02/22/17 08:00 02/22/17 08:15 02/22/17 08:15 02/22/17 07:59 02/22/17 08:15 Intake and Output: 02/22/17 02/22/17 06:59 18:59 Intake Total 165 15 Output Total 0 0 Balance 165 15 - Medications Medications: Current Medications Ceftriaxone Sodium (Rocephin Iv 1 Gm Duplex) 50 mls @ 100 mls/hr IVPB DAILY [facility] Last Admin: 02/22/17 10:57 Dose: 100 mls/hr Lactulose (Enulose) 20 gm NG Q8 [facility] Last Admin: 02/22/17 06:30 Dose: 20 gm Lamivudine (Epivir) 150 mg PO BID [facility] Last Admin: 02/22/17 10:54 Dose: 150 mg Nadolol (Corgard) 20 mg PO DAILY [facility] Last Admin: 02/22/17 10:54 Dose: 20 mg Ondansetron HCl (Zofran Inj) 4 mg IVP Q8H PRN PRN Reason: Nausea/Vomiting Last Admin: 02/21/17 10:39 Dose: 4 mg Pantoprazole Sodium (Protonix Ec Tab) 40 mg PO Q12H [facility] Last Admin: 02/22/17 10:54 Dose: 40 mg - Labs Labs: 02/22/17 06:50 02/22/17 06:28 PT 15.7 SECONDS (9.7-12.2) H 02/21/17 01:01 INR 1.4 02/21/17 01:01 APTT 29 SECONDS (21-34) 02/21/17 01:01 - Constitutional Appears: Non-toxic, No Acute Distress, Chronically Ill - Head Exam Head Exam: NORMAL INSPECTION - Eye Exam Eye Exam: Normal appearance - ENT Exam ENT Exam: Mucous Membranes Dry - Neck Exam Neck Exam: Normal Inspection - Respiratory Exam Respiratory Exam: Decreased Breath Sounds, NORMAL BREATHING PATTERN - Cardiovascular Exam Cardiovascular Exam: REGULAR RHYTHM, RRR - GI/Abdominal Exam GI & Abdominal Exam: Distended, Soft Additional comments: translumbar hd catheter - Extremities Exam Extremities Exam: Normal Inspection Assessment and Plan (1) Abdominal pain Status: Acute (2) Altered mental status Status: Acute (3) Anemia Status: Acute (4) Chronic hepatitis B Status: Acute (5) Colitis Status: Acute (6) ESRD (end stage renal disease) on dialysis Status: Acute (7) Esophageal varices with bleeding Status: Acute - Assessment and Plan (Free Text) Assessment: hd today, increase calcium monitor for bleeding maintain lactulose
[2017-02-22 14:17] VITALS: RESP 20
[2017-02-22] MEDS ORDERED: EPOETIN ALFA 4,000 UNIT/ML ML Dialysis IV SCH (15:36)
--- NOTE | 2017-02-22 19:01 | CP.PCM.PN ---
Subjective - Date & Time of Evaluation Date of Evaluation: 02/22/17 Time of Evaluation: 07:40 - Subjective Subjective: clinically same Objective - Vital Signs/Intake and Output Vital Signs (last 24 hours): Temp Pulse Resp BP Pulse Ox 96.3 F L 41 L 20 107/60 100 02/22/17 14:25 02/22/17 17:25 02/22/17 17:25 02/22/17 17:25 02/22/17 17:25 Intake and Output: 02/22/17 02/23/17 18:59 06:59 Intake Total 385 Output Total 50 Balance 335 - Medications Medications: Current Medications Epoetin William (Procrit) 8,000 unit IV TTS [facility] Stop: 03/01/17 10:01 Last Admin: 02/22/17 16:33 Dose: 8,000 unit Ceftriaxone Sodium (Rocephin Iv 1 Gm Duplex) 50 mls @ 100 mls/hr IVPB DAILY [facility] Last Admin: 02/22/17 10:57 Dose: 100 mls/hr Lactulose (Enulose) 20 gm NG Q8 [facility] Last Admin: 02/22/17 13:40 Dose: 20 gm Lamivudine (Epivir) 150 mg PO BID [facility] Last Admin: 02/22/17 10:54 Dose: 150 mg Nadolol (Corgard) 20 mg PO DAILY [facility] Last Admin: 02/22/17 10:54 Dose: 20 mg Ondansetron HCl (Zofran Inj) 4 mg IVP Q8H PRN PRN Reason: Nausea/Vomiting Last Admin: 02/21/17 10:39 Dose: 4 mg Pantoprazole Sodium (Protonix Ec Tab) 40 mg PO Q12H [facility] Last Admin: 02/22/17 10:54 Dose: 40 mg - Labs Labs: 02/22/17 06:50 02/22/17 06:28 PT 15.7 SECONDS (9.7-12.2) H 02/21/17 01:01 INR 1.4 02/21/17 01:01 APTT 29 SECONDS (21-34) 02/21/17 01:01 - Constitutional Appears: Well - Head Exam Head Exam: ATRAUMATIC, NORMAL INSPECTION, NORMOCEPHALIC - Eye Exam Eye Exam: EOMI, Normal appearance, PERRL Pupil Exam: NORMAL ACCOMODATION, PERRL - ENT Exam ENT Exam: Mucous Membranes Moist, Normal Exam - Neck Exam Neck Exam: Full ROM, Normal Inspection. absent: Lymphadenopathy - Respiratory Exam Respiratory Exam: Decreased Breath Sounds - Cardiovascular Exam Cardiovascular Exam: REGULAR RHYTHM, +S1, +S2 - GI/Abdominal Exam GI & Abdominal Exam: Soft, Diminished Bowel Sounds - Rectal Exam Rectal Exam: Deferred
[2017-02-23 08:57] LABS: POTASSIUM 3.4 mmol/L (3.6-5.2)
[2017-02-23 08:59] LABS: BILIRUBIN,TOTAL 1.1 mg/dL (0.2-1.3)
[2017-02-23 09:00] LABS: CALCIUM 7.6 mg/dl (8.6-10.4); TOTAL PROTEIN 7.1 g/dL (6.3-8.3)
--- NOTE | 2017-02-23 09:00 | CP.PCM.PN ---
Subjective - Date & Time of Evaluation Date of Evaluation: 02/23/17 Time of Evaluation: 08:57 - Subjective Subjective: No bleeding or melena Tolerating liquid diet yesterday Objective - Vital Signs/Intake and Output Vital Signs (last 24 hours): Temp Pulse Resp BP Pulse Ox 97.3 F L 59 L 20 115/73 99 02/23/17 07:36 02/23/17 07:36 02/23/17 07:36 02/23/17 07:36 02/23/17 07:36 Intake and Output: 02/23/17 02/23/17 06:59 18:59 Intake Total 120 Balance 120 - Medications Medications: Current Medications Epoetin William (Procrit) 8,000 unit IV TTS [facility] Stop: 03/01/17 10:01 Last Admin: 02/22/17 16:33 Dose: 8,000 unit Ceftriaxone Sodium (Rocephin Iv 1 Gm Duplex) 50 mls @ 100 mls/hr IVPB DAILY [facility] Last Admin: 02/22/17 10:57 Dose: 100 mls/hr Lactulose (Enulose) 20 gm NG Q8 [facility] Last Admin: 02/23/17 05:20 Dose: Not Given Lamivudine (Epivir) 150 mg PO BID [facility] Last Admin: 02/22/17 18:00 Dose: 150 mg Nadolol (Corgard) 20 mg PO DAILY [facility] Last Admin: 02/22/17 10:54 Dose: 20 mg Ondansetron HCl (Zofran Inj) 4 mg IVP Q8H PRN PRN Reason: Nausea/Vomiting Last Admin: 02/21/17 10:39 Dose: 4 mg Pantoprazole Sodium (Protonix Ec Tab) 40 mg PO Q12H [facility] Last Admin: 02/22/17 21:11 Dose: 40 mg - Labs Labs: 02/22/17 06:50 02/22/17 06:28 PT 15.7 SECONDS (9.7-12.2) H 02/21/17 01:01 INR 1.4 02/21/17 01:01 APTT 29 SECONDS (21-34) 02/21/17 01:01 - Constitutional Appears: No Acute Distress - Head Exam Head Exam: ATRAUMATIC, NORMOCEPHALIC - Eye Exam Eye Exam: EOMI, PERRL. absent: Scleral icterus - Respiratory Exam Respiratory Exam: NORMAL BREATHING PATTERN - Cardiovascular Exam Cardiovascular Exam: REGULAR RHYTHM - GI/Abdominal Exam GI & Abdominal Exam: Soft, Normal Bowel Sounds. absent: Tenderness, Mass, Rebound - Extremities Exam Extremities Exam: Normal Inspection - Neurological Exam Neurological Exam: Alert, Awake, Oriented x3 Assessment and Plan (1) Esophageal varices with bleeding Assessment & Plan: No further bleeding post esophageal banding Started on Nadolol yesterday for bleeding prophylaxis Will plan repeat EGD and banding as outpatient in 2-4 weeks Change Protonix to po QD and continue No ASA, Nsaids Status: Acute (2) Chronic hepatitis B with cirrhosis Assessment & Plan: Continue Lamivudine Status: Chronic (3) Cirrhosis Status: Chronic (4) GI bleed Assessment & Plan: Stable post banding of varices Status: Resolved (5) Anemia due to acute blood loss Status: Acute (6) Chronic kidney disease with end stage renal failure on dialysis Status: Chronic (7) Hepatic encephalopathy Assessment & Plan: Mental status and ammonia level now normal on Lactulose Would continue BID upon discharge Begin Xifaxan 550mg bid as well Status: Acute (8) Abnormal CT of the abdomen Status: Acute
[2017-02-23] MEDS: cefTRIAXone IV 1 gm in Dextros 50 ML IVPB SCH (09:49)
[2017-02-23] MEDS: Pantoprazole 40 mg EC Tab PO SCH (09:50)
[2017-02-23 10:01] LABS: BASO # 0.1 K/uL (0.0-0.2); BASO % 1.4 % (0.0-2.0); EOS # 0.3 K/uL (0.0-0.7); EOS % 6.1 % (0.0-4.0); HEMATOCRIT 27.3 % (35.0-51.0); LYMPH # 0.7 K/uL (1.0-4.3); LYMPH % 15.9 % (20.0-40.0); MEAN CELL VOLUME 90.9 fL (80.0-94.0); MEAN CORPUSCULAR HEMOGLOBIN 29.5 pg (27.0-31.0); MEAN CORPUSCULAR HGB CONC 32.4 g/dL (33.0-37.0); MEAN PLATELET VOLUME 9.6 fL (7.2-11.7); MONO # 0.6 K/uL (0.0-0.8); MONO % 13.2 % (0.0-10.0); NRBC % 0.8 % (0.0-2.0); RED CELL DISTRIBUTION WIDTH 21.1 % (11.5-14.5); WHITE BLOOD COUNT 4.6 K/uL (4.8-10.8)
--- NOTE | 2017-02-23 10:28 | CP.PCM.PN ---
Subjective - Date & Time of Evaluation Date of Evaluation: 02/23/17 Time of Evaluation: 10:00 - Subjective Subjective: PGY3 on medicine Dr. Mcdonough service: Pt seen and examined at bedside this morning. Pt said he felt better and no longer vomiting. Pt was able to tolerate his diet. Pt also denied abdominal pain. Pt cleared for discharge per Dr. Mcdonough and Dr. Moreno. Pt will be discharged with Xifaxan 550mg PO BID, Nadolol 20mg PO daily, Protonix 40mg PO daily and Lactulose 20g PO BID, in addition to his home med PHoslo, Sensipar, Renvela and Lamivudine. Pt instructed to cut back on lactulose if too much bowel movements. Pt has appointment next with Dr. Moreno already. Objective - Vital Signs/Intake and Output Vital Signs (last 24 hours): Temp Pulse Resp BP Pulse Ox 97.3 F L 59 L 20 115/73 99 02/23/17 07:36 02/23/17 07:36 02/23/17 07:36 02/23/17 07:36 02/23/17 07:36 Intake and Output: 02/23/17 02/23/17 06:59 18:59 Intake Total 120 Balance 120 - Medications Medications: Current Medications Epoetin William (Procrit) 8,000 unit IV TTS [facility] Stop: 03/01/17 10:01 Last Admin: 02/22/17 16:33 Dose: 8,000 unit Ceftriaxone Sodium (Rocephin Iv 1 Gm Duplex) 50 mls @ 100 mls/hr IVPB DAILY [facility] Last Admin: 02/23/17 09:49 Dose: 100 mls/hr Lactulose (Enulose) 20 gm NG Q8 [facility] Last Admin: 02/23/17 05:20 Dose: Not Given Lamivudine (Epivir) 150 mg PO BID [facility] Last Admin: 02/23/17 09:50 Dose: 150 mg Nadolol (Corgard) 20 mg PO DAILY [facility] Last Admin: 02/23/17 09:50 Dose: 20 mg Ondansetron HCl (Zofran Inj) 4 mg IVP Q8H PRN PRN Reason: Nausea/Vomiting Last Admin: 02/21/17 10:39 Dose: 4 mg Pantoprazole Sodium (Protonix Ec Tab) 40 mg PO Q12H [facility] Last Admin: 02/23/17 09:50 Dose: 40 mg Rifaximin (Xifaxan) 550 mg PO BID [facility] Last Admin: 02/23/17 10:01 Dose: Not Given - Labs Labs: 02/23/17 09:56 02/23/17 08:36 PT 15.7 SECONDS (9.7-12.2) H 02/21/17 01:01 INR 1.4 02/21/17 01:01 APTT 29 SECONDS (21-34) 02/21/17 01:01 - Constitutional Appears: Non-toxic, No Acute Distress, Chronically Ill - Head Exam Head Exam: NORMOCEPHALIC - Eye Exam Eye Exam: Normal appearance - ENT Exam ENT Exam: Mucous Membranes Moist - Respiratory Exam Respiratory Exam: Clear to Ausculation Bilateral, NORMAL BREATHING PATTERN. absent: Rhonchi, Wheezes - Cardiovascular Exam Cardiovascular Exam: REGULAR RHYTHM, +S1, +S2. absent: Gallop, Rubs - GI/Abdominal Exam GI & Abdominal Exam: Soft, Normal Bowel Sounds. absent: Tenderness Additional comments: PD catheter site c/d/i - Extremities Exam Extremities Exam: absent: Pedal Edema - Neurological Exam Neurological Exam: Alert, Awake, Oriented x3 - Psychiatric Exam Psychiatric exam: Normal Mood - Skin Skin Exam: Intact Assessment and Plan - Assessment and Plan (Free Text) Assessment: Bleeding esophageal varices Endoscopy: GRADE III varices in the lower third esophagus; 3 bands placed with incomplete eradication of varices CT Abdomen/Pelvis (02/21/17): Suspect wall thickening/ segmental colitis involving right colon GI Dr. Moreno consulted, help appreciated. S/P banding procedure by Dr. Crowley Octreotide and Protonix drip discontinued. Continue Nadolol for bleeding prophylaxis, as well as Protonix PO daily. No ASA or NSAID as per GI. Will need outpatient EGD in 2-4 weeks. Hepatic encephalopathy Ammonia downtrending and normalized. Will DC with Lactulose BID and Xifaxan 550mg PO BID as per GI. ESRD on HD TTS Nephro Dr. Huynh consulted, help appreciated. Continue HD TTS. Chronic hepatitis B Continue Lamivudine 150mg PO BID. Colitis Continue Rocephin 1g IV daily started on 02/21. Prophylactic measure SCD, Protonix PT/OT Discharge planning Management as per Dr. Mcdonough
--- NOTE | 2017-02-23 13:40 | CP.PCM.PN ---
Subjective - Date & Time of Evaluation Date of Evaluation: 02/23/17 Time of Evaluation: 13:38 - Subjective Subjective: More alert Eating better now tolerated dialysis 02/22 BP stable Tolerating meds no nausea, vomiting, CPs, SOB, diarrhea, HAs Objective - Vital Signs/Intake and Output Vital Signs (last 24 hours): Temp Pulse Resp BP Pulse Ox 97.3 F L 59 L 20 115/73 99 02/23/17 07:36 02/23/17 07:36 02/23/17 07:36 02/23/17 07:36 02/23/17 07:36 Intake and Output: 02/23/17 02/23/17 06:59 18:59 Intake Total 120 500 Balance 120 500 - Medications Medications: Current Medications Epoetin William (Procrit) 8,000 unit IV TTS [facility] Stop: 03/01/17 10:01 Last Admin: 02/22/17 16:33 Dose: 8,000 unit Ceftriaxone Sodium (Rocephin Iv 1 Gm Duplex) 50 mls @ 100 mls/hr IVPB DAILY [facility] Last Admin: 02/23/17 09:49 Dose: 100 mls/hr Lactulose (Enulose) 20 gm NG Q8 [facility] Last Admin: 02/23/17 13:06 Dose: Not Given Lamivudine (Epivir) 150 mg PO BID [facility] Last Admin: 02/23/17 09:50 Dose: 150 mg Nadolol (Corgard) 20 mg PO DAILY [facility] Last Admin: 02/23/17 09:50 Dose: 20 mg Ondansetron HCl (Zofran Inj) 4 mg IVP Q8H PRN PRN Reason: Nausea/Vomiting Last Admin: 02/21/17 10:39 Dose: 4 mg Pantoprazole Sodium (Protonix Ec Tab) 40 mg PO Q12H [facility] Last Admin: 02/23/17 09:50 Dose: 40 mg Rifaximin (Xifaxan) 550 mg PO BID [facility] Last Admin: 02/23/17 12:59 Dose: 550 mg - Labs Labs: 02/23/17 09:56 02/23/17 08:36 PT 15.7 SECONDS (9.7-12.2) H 02/21/17 01:01 INR 1.4 02/21/17 01:01 APTT 29 SECONDS (21-34) 10/16/17 01:01 - Constitutional Appears: No Acute Distress, Chronically Ill - Head Exam Head Exam: ATRAUMATIC, NORMAL INSPECTION - Eye Exam Eye Exam: EOMI, Normal appearance - Neck Exam Neck Exam: Normal Inspection. absent: Tenderness - Respiratory Exam Respiratory Exam: Clear to Ausculation Bilateral, NORMAL BREATHING PATTERN - Cardiovascular Exam Cardiovascular Exam: REGULAR RHYTHM, +S1 - GI/Abdominal Exam GI & Abdominal Exam: Soft - Extremities Exam Extremities Exam: Normal Inspection. absent: Tenderness - Neurological Exam Neurological Exam: Awake, CN II-XII Intact - Skin Skin Exam: Dry, Warm Assessment and Plan (1) Chronic hepatitis B Status: Acute (2) Altered mental status Status: Acute (3) ESRD (end stage renal disease) on dialysis Status: Acute (4) Hepatic encephalopathy Status: Acute (5) Hypertension Status: Acute (6) Chronic hepatitis B with cirrhosis Status: Chronic - Assessment and Plan (Free Text) Plan: Continue dilaysis TTS - mild UF Same meds monitor mental status follow up labs
[2017-02-23 14:32] VITALS: O2SAT 98
[2017-02-23] MEDS ORDERED: Influenza Vaccine 60 mcg/0.5 mL SYR (4YR UP) IM ONE ×2 (14:44→18:00)
[2017-02-23] MEDS ORDERED: Pneumococcal 23-Valent Vaccine IM ONE ×2 (14:44→18:00)
[2017-02-23 17:36] VITALS: BP 105/70; PULSE 55; TEMP 97.5
== END 2017-02-23 17:55 | disposition home or self-care (01) | DRG 432 ==
LOC: C.ER 00:32 → C.9E 01:48 → C.9I 02:22 → C.3T 02-22 12:15
PROVIDERS: ADMIT Internal Medicine Nephrology; ATTEND Internal Medicine Nephrology
PROC: 30233N1 Transfusion of Nonautologous Red Blood Cells into Peripheral Vein, Percutaneous Approach (ICD-10-PCS; 2017-02-19)
PROC: 06L38CZ Occlusion of Esophageal Vein with Extraluminal Device, Via Natural or Artificial Opening Endoscopic (ICD-10-PCS; principal; 2017-02-19 12:25)
PROC: 5A1D70Z Performance of Urinary Filtration, Intermittent, Less than 6 Hours Per Day (ICD-10-PCS; 2017-02-22)
DX: K74.69 Other cirrhosis of liver (principal); I85.11 Secondary esophageal varices with bleeding; T86.12 Kidney transplant failure; N18.6 End stage renal disease; K72.90 Hepatic failure, unspecified without coma; I12.0 Hypertensive chronic kidney disease with stage 5 chronic kidney disease or end stage renal disease; B18.1 Chronic viral hepatitis B without delta-agent; K50.10 Crohn's disease of large intestine without complications; D50.0 Iron deficiency anemia secondary to blood loss (chronic); K21.9 Gastro-esophageal reflux disease without esophagitis; M19.90 Unspecified osteoarthritis, unspecified site; Z95.0 Presence of cardiac pacemaker; Z99.2 Dependence on renal dialysis

== ENCOUNTER 2017-04-08 12:08 | Inpatient (IN) | payer MEDICARE ==
[2017-04-08 12:08] VITALS: BMI 23.3
--- NOTE | 2017-04-08 12:23 | C.PDOC ---
History Of Present Illness 46 year old male, with past medical history of HTN, ESRD, Chronic Kidney Disease , is brought to ED via ALS after patient was found unresponsive by family member. Pt is non-verbal, but is responsive to painful stimuli. Family states that he behaves this way when his ammonia level is high. Limited history at this time. Time Seen by Provider: 04/08/17 12:14 Chief Complaint (Nursing): Altered Mental Status History Per: Patient History/Exam Limitations: Clinical Condition Onset/Duration Of Symptoms: Unknown Current Symptoms Are (Timing): Still Present Usual Baseline: Non-verbal Exacerbating Factor(s): Unknown Use Of Anticoag/Antiplatelets: Unknown Additional History Per: EMS, Family Associated Symptoms: Confused Past Medical History Reviewed: Historical Data, Nursing Documentation, Vital Signs Vital Signs: Last Vital Signs Temp 98.6 F 04/08/17 16:05 Pulse 60 04/08/17 16:27 Resp 12 04/08/17 16:27 BP 102/63 04/08/17 16:27 Pulse Ox 100 04/08/17 16:27 - Medical History PMH: Gastritis, HTN, End Stage Renal Disease, Chronic Kidney Disease Denies: Kidney Stones Surgical History: Endoscopy - [facility] (02/19/17) (02/19/17) INCIS W REM OF FORIEGN BODY OR DEV FROM SKIN & SUBCUT TISSUE (01/28/06) TRANSFUSE NONAUT RED BLOOD CELLS IN PERIPH VEIN, PERC (02/19/17) VENOUS CATHETERIZATION FOR RENAL DIALYSIS (06/18/13) Family History: States: Unknown Family Hx - Social History Hx Tobacco Use: No Hx Alcohol Use: No Hx Substance Use: No - Immunization History Hx Tetanus Toxoid Vaccination: No Hx Influenza Vaccination: No Hx Pneumococcal Vaccination: No Review Of Systems Review Of Systems: ROS cannot be obtained secondary to pt's inabilty to answer questions. Physical Exam - Physical Exam Appears: Non-toxic Skin: Normal Color, Warm, Dry Head: Atraumatic, Normacephalic Eye(s): bilateral: Normal Inspection Oral Mucosa: Moist Cardiovascular: Rhythm Regular, No Murmur Respiratory: Normal Breath Sounds, No Rales, No Rhonchi, No Wheezing Gastrointestinal/Abdominal: Soft, No Tenderness Extremity: No Other (no thrill in AV dialysis shunt) Neurological/Psych: Other (non-verbal, obtunded, confused) ED Course And Treatment - Laboratory Results Result Diagrams: 04/08/17 12:33 04/08/17 12:33 O2 Sat by Pulse Oximetry: 100 (on RA) Pulse Ox Interpretation: Normal Medical Decision Making Medical Decision Making: Blood work, abdomen x-ray ordered and reviewed. Disposition Discussed With Dr.: Barry Mcdonough - Disposition Disposition: HOSPITALIZED Disposition Time: 14:55 Condition: CRITICAL - Clinical Impression Clinical Impression: 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, Renal failure - Scribe Statement The provider has reviewed the documentation as recorded by the Joe Mcdonough All medical record entries made by the Joe were at my direction and personally dictated by me. I have reviewed the chart and agree that the record accurately reflects my personal performance of the history, physical exam, medical decision making, and the department course for this patient. I have also personally directed, reviewed, and agree with the discharge instructions and disposition. Decision To Admit - . Bed Request Type: ICU Admitting Physician: Barry Mcdonough Patient Diagnosis: 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, Renal failure
[2017-04-08 12:49] LABS: BASO # 0.1 K/uL (0.0-0.2); BASO % 2.2 % (0.0-2.0); EOS # 0.2 K/uL (0.0-0.7); EOS % 4.7 % (0.0-4.0); HEMATOCRIT 30.8 % (35.0-51.0); LYMPH # 0.7 K/uL (1.0-4.3); LYMPH % 13.9 % (20.0-40.0); MEAN CORPUSCULAR HEMOGLOBIN 28.7 pg (27.0-31.0); MEAN CORPUSCULAR HGB CONC 30.9 g/dL (33.0-37.0); MEAN PLATELET VOLUME 10.4 fL (7.2-11.7); MONO # 0.6 K/uL (0.0-0.8); MONO % 12.6 % (0.0-10.0); NRBC % 0.2 % (0.0-2.0); RED CELL DISTRIBUTION WIDTH 20.5 % (11.5-14.5); WHITE BLOOD COUNT 4.8 K/uL (4.8-10.8)
[2017-04-08 12:50] LABS: ALB/GLOB RATIO 0.9 (1.0-2.1); BILIRUBIN,TOTAL 1.8 mg/dL (0.2-1.3); CALCIUM 7.3 mg/dl (8.6-10.4); TOTAL PROTEIN 7.7 g/dL (6.3-8.3)
[2017-04-08 12:57] LABS: MAGNESIUM 1.9 mg/dL (1.6-2.3); POTASSIUM 5.6 mmol/L (3.6-5.2)
[2017-04-08 14:06] LABS: INR 1.5
--- NOTE | 2017-04-08 14:44 | RAD ---
HISTORY: NG placement COMPARISON: 02/19/2017 FINDINGS: LUNGS: No active pulmonary disease. PLEURA: No significant pleural effusion identified, no pneumothorax apparent. CARDIOVASCULAR: The heart is normal in size. There is a soft tissue density in the expected location of the azygos vein which is more prominent than on recent chest radiograph of 02/19/2017. This may be artifactual due to apical lordotic positioning. Repeat PA and lateral chest radiography is advised when clinically feasible. A nasogastric tube extends to the left upper quadrant of the abdomen. OSSEOUS STRUCTURES: No significant abnormalities. VISUALIZED UPPER ABDOMEN: Normal. OTHER FINDINGS: None. IMPRESSION: Prominent soft tissue density in the region of the azygos vein. Possible artifact due to apical lordotic positioning. Recommend repeat PA and lateral chest radiograph when clinically feasible. No acute infiltrate. Nasogastric tube appropriately positioned.
[2017-04-08] MEDS ORDERED: Sodium Chloride 0.9% 1,000 ML IV STA (14:48)
[2017-04-08] MEDS ORDERED: Sodium Chloride 0.9% 1,000 ML ONE (15:01)
--- NOTE | 2017-04-08 15:14 | RAD ---
HISTORY: NG placement COMPARISON: CT abdomen pelvis without contrast performed 02/21/17 FINDINGS: BOWEL: Nonspecific bowel gas pattern. Surgical clips evident. Nasogastric tube extends to the proximal stomach with side hole near the GE junction ; recommend advancement approximately 6 cm. BONES: Osseous demineralization. Degenerative changes. OTHER FINDINGS: None. IMPRESSION: Nasogastric tube extends to the proximal stomach with side hole near the GE junction ; recommend advancement approximately 6 cm. Nonspecific bowel gas pattern. Findings discussed with Dr. Burns on 04/08/17 at 3:12 p.m.
--- NOTE | 2017-04-08 15:51 | CT ---
PROCEDURE: CT HEAD WITHOUT CONTRAST. HISTORY: mental status change COMPARISON: Noncontrast CT Head performed 02/21/2017 TECHNIQUE: Axial computed tomography images were obtained through the head/brain without intravenous contrast. Radiation dose: Total exam DLP = 1385.03 MGy-cm. This CT exam was performed using one or more of the following dose reduction techniques: Automated exposure control, adjustment of the mA and/or kV according to patient size, and/or use of iterative reconstruction technique. FINDINGS: HEMORRHAGE: No intracranial hemorrhage. BRAIN: Diffuse atrophy with prominence of the ventricles and sulci noted. No mass effect or edema. Intracranial atherosclerosis. Scattered periventricular and subcortical white matter hypodensities, which are nonspecific, but often seen with chronic microvascular ischemic disease. Please note that MRI with diffusion imaging is more sensitive in the detection of acute ischemic event. VENTRICLES: No hydrocephalus. CALVARIUM: Unremarkable. PARANASAL SINUSES: Unremarkable as visualized. No significant inflammatory changes. MASTOID AIR CELLS: Unremarkable as visualized. No inflammatory changes. OTHER FINDINGS: None. IMPRESSION: Generalized atrophy. Nonspecific white matter changes.
[2017-04-08 16:05] LABS: ABG ALLEN TEST FEMORAL
[2017-04-08] MEDS ORDERED: Etomidate 20 mg/10ml Inj IV ONE ×2 (17:10)
[2017-04-08] MEDS ORDERED: Propofol 10 mg/ml Inj (20 ML) ONE (17:22)
[2017-04-08] MEDS ORDERED: Propofol 10 mg/ml Inj (20 ML) IV ONE (17:31)
--- NOTE | 2017-04-08 17:59 | CP.PCM.CON ---
<Ferdinand Daly - Last Filed: 04/08/17 19:44> History of Present Illness - History of Present Illness History of Present Illness: PGY1 ICU Consult Note for Dr. Almaguer Reason for Consult: Hepatic Encephalopathy History from Chart Review Patient is a 46 year old male with a past medical history of chronic Hep B, ESRD on HD TTS (patient has lumbar HD cath to IVC) and failed renal transplant, presenting to the ED today after the patient was found unresponsive by family and they decided to call ambulance. According to ED, the family stated that the patient behaves this way when his ammonia levels are elevated. There is no family at bedside at time of examination. ROS unattainable as patient is non- responsive. PMH: chronic Hep B, ESRD on HD TTS PSH: abdominal surg (unknown), failed right arm AV graft, failed renal transplant, lumbar HD cath to IVC Family: unknown Social: lives with family hep B due to blood transfusion in 1984, denies smoking , alcohol or illicit drugs All: NKDA Review of Systems - Review of Systems Systems not reviewed;Unavailable: Altered Mental Status Past Patient History - Infectious Disease Hx of Infectious Diseases: None - Past Medical History & Family History Past Medical History?: Yes - Past Social History Smoking Status: Never Smoked - CARDIAC Hx Hypertension: Yes - PULMONARY Hx Respiratory Disorders: No - NEUROLOGICAL Hx Paralysis: No - HEENT Hx HEENT Problems: Yes Hx Glaucoma: Yes - RENAL Hx Chronic Kidney Disease: Yes Hx Kidney Stones: No - ENDOCRINE/METABOLIC Hx Endocrine Disorders: No - HEMATOLOGICAL/ONCOLOGICAL Hx Blood Transfusions: Yes Hx Blood Transfusion Reaction: No Hx Hepatitis B: Yes - INTEGUMENTARY Hx Dermatological Problems: No - MUSCULOSKELETAL/RHEUMATOLOGICAL Hx Musculoskeletal Disorders: No Hx Falls: No - GASTROINTESTINAL Hx Gastritis: Yes - GENITOURINARY/GYNECOLOGICAL Hx Genitourinary Disorders: No - PSYCHIATRIC Hx Substance Use: No - SURGICAL HISTORY Hx Surgeries: Yes - ANESTHESIA Hx Anesthesia: Yes Hx Anesthesia Reactions: No Hx Malignant Hyperthermia: No Meds Allergies/Adverse Reactions: Allergies Allergy/AdvReac Type Severity Reaction Status Date / Time No Known Allergies Allergy Verified 04/08/17 12:11 - Medications Medications: Current Medications Sodium Chloride (Sodium Chloride 0.9%) 1,000 mls @ 100 mls/hr IV .Q10H STA Stop: 04/09/17 00:47 Last Admin: 12/01/17 14:00 Dose: 100 mls/hr Physical Exam - Constitutional Appears: Toxic, Other Additional comments: obtunded - Head Exam Head Exam: ATRAUMATIC, NORMOCEPHALIC - Respiratory Exam Respiratory Exam: Rales, Rhonchi. absent: Accessory Muscle Use Additional comments: Intubated. - Cardiovascular Exam Cardiovascular Exam: REGULAR RHYTHM - GI/Abdominal Exam GI & Abdominal Exam: Distended, Soft. absent: Firm, Guarding, Rigid Additional comments: ex- lap scar from previous surgery. - Extremities Exam Extremities exam: Positive for: pedal pulses present. Negative for: calf tenderness, pedal edema - Neurological Exam Neurological exam: Altered (obtunded) - Skin Skin Exam: Dry, Warm Results - Vital Signs Recent Vital Signs: Last Vital Signs Temp 98.6 F 04/08/17 16:05 Pulse 60 04/08/17 16:27 Resp 12 04/08/17 16:27 BP 102/63 04/08/17 16:27 Pulse Ox 100 04/08/17 16:51 - Labs Result Diagrams: 04/08/17 12:33 04/08/17 12:33 Labs: Laboratory Results - last 24 hr 04/08/17 04/08/17 04/08/17 12:17 12:33 12:33 WBC 4.8 RBC 3.31 L Hgb 9.5 L Hct 30.8 L MCV 93.0 D MCH 28.7 MCHC 30.9 L RDW 20.5 H Plt Count 146 MPV 10.4 Neut % (Auto) 66.6 Lymph % (Auto) 13.9 L [place] % (Auto) 12.6 H Eos % (Auto) 4.7 H Baso % (Auto) 2.2 H Neut # 3.2 Lymph # 0.7 L [place] # 0.6 Eos # 0.2 Baso # 0.1 PT INR Puncture Site pCO2 pO2 HCO3 ABG pH ABG Total CO2 ABG O2 Saturation ABG Base Excess Ruddy Test ABG Potassium A-a O2 Difference Respiratory Index Glucose Lactate Liter Flow FiO2 Sodium 145 Potassium 5.6 H Chloride 102 Carbon Dioxide 33 H Anion Gap 16 BUN 48 H Creatinine 5.9 H Est GFR ( Amer) 13 Est GFR (Non-Af Amer) 10 POC Glucose (mg/dL) 73 Random Glucose 79 Lactic Acid Calcium 7.3 L Magnesium 1.9 Total Bilirubin 1.8 H AST 60 H ALT 35 Alkaline Phosphatase 107 Ammonia Total Protein 7.7 Albumin 3.7 Globulin 4.0 H Albumin/Globulin Ratio 0.9 L Arterial Blood Potassium Stool Occult Blood Blood Type Antibody Screen 04/08/17 04/08/17 04/08/17 13:02 13:51 13:51 WBC RBC Hgb Hct MCV MCH MCHC RDW Plt Count MPV Neut % (Auto) Lymph % (Auto) [place] % (Auto) Eos % (Auto) Baso % (Auto) Neut # Lymph # [place] # Eos # Baso # PT 17.2 H INR 1.5 Puncture Site pCO2 pO2 HCO3 ABG pH ABG Total CO2 ABG O2 Saturation ABG Base Excess Ruddy Test ABG Potassium A-a O2 Difference Respiratory Index Glucose Lactate Liter Flow FiO2 Sodium Potassium Chloride Carbon Dioxide Anion Gap BUN Creatinine Est GFR ( Amer) Est GFR (Non-Af Amer) POC Glucose (mg/dL) Random Glucose Lactic Acid 1.8 Calcium Magnesium Total Bilirubin AST ALT Alkaline Phosphatase Ammonia 181 H D Total Protein Albumin Globulin Albumin/Globulin Ratio Arterial Blood Potassium Stool Occult Blood Blood Type Antibody Screen 04/08/17 04/08/17 04/08/17 13:51 13:51 16:02 WBC RBC Hgb Hct MCV MCH MCHC RDW Plt Count MPV Neut % (Auto) Lymph % (Auto) [place] % (Auto) Eos % (Auto) Baso % (Auto) Neut # Lymph # [place] # Eos # Baso # PT INR Puncture Site Dr. meeks pCO2 31 L pO2 177 H HCO3 31.9 H ABG pH 7.60 H ABG Total CO2 31.4 H ABG O2 Saturation 99.4 H ABG Base Excess 8.9 H Ruddy Test Femoral ABG Potassium 4.5 A-a O2 Difference 12.0 Respiratory Index 0.1 Glucose 90 Lactate 2.2 H Liter Flow 3.0 FiO2 32.0 Sodium 145.0 Potassium Chloride 110.0 H Carbon Dioxide Anion Gap BUN Creatinine Est GFR ( Amer) Est GFR (Non-Af Amer) POC Glucose (mg/dL) Random Glucose Lactic Acid Calcium Magnesium Total Bilirubin AST ALT Alkaline Phosphatase Ammonia Total Protein Albumin Globulin Albumin/Globulin Ratio Arterial Blood Potassium 4.5 Stool Occult Blood Positive H Blood Type O POSITIVE Antibody Screen Negative Assessment & Plan - Assessment and Plan (Free Text) Assessment: 46 year old male with past medical history of chronic Hep B, ESRD on HD TTS found unresponsive by family this morning. Plan: GI: Positive stool occult blood Hgb 9.5 (continue to monitor) ammonia 181 (continue to monitor) f/u serum tox Lactulose 20gm NG q8 Respiratory: Intubated. Abg - pCO2 31/ pO2 177/ HCO3 31.9/ pH 7.6 on room air Vent settings 450/16/12/5 f/u cxr f/u post intubation abg Renal: ESRD on HD (TTS) Prophylactic Care: Anticoag contra due to GI bleed SCDs Protonix 40mg IV daily Case discussed with Dr. Rosina Novoan PGY1 <Rodrigo Almaguer - Last Filed: 04/09/17 14:22> Meds - Medications Medications: Current Medications Epoetin William (Procrit) 10,000 unit IV TTS ROHAN Lactulose (Enulose) 20 gm NG Q8H ROHAN Last Admin: 04/09/17 11:43 Dose: 20 gm Pantoprazole Sodium (Protonix Inj) 40 mg IVP DAILY ROHAN Last Admin: 04/09/17 10:41 Dose: 40 mg Rifaximin (Xifaxan) 550 mg NG BID ROHAN Last Admin: 04/09/17 10:41 Dose: 550 mg Results - Vital Signs Recent Vital Signs: Last Vital Signs Temp 98.8 F 04/09/17 12:00 Pulse 75 04/09/17 13:50 Resp 22 04/09/17 13:50 BP 99/31 L 04/09/17 13:46 Pulse Ox 94 L 04/09/17 13:50 - Labs Result Diagrams: 04/09/17 06:30 04/09/17 06:32 Labs: Laboratory Results - last 24 hr 04/08/17 04/08/17 04/08/17 13:51 16:02 20:23 WBC RBC Hgb Hct MCV MCH MCHC RDW Plt Count MPV Neut % (Auto) Lymph % (Auto) [place] % (Auto) Eos % (Auto) Baso % (Auto) Neut # Lymph # [place] # Eos # Baso # Puncture Site Dr. meeks Rr pCO2 31 L 26 L pO2 177 H 50 L HCO3 31.9 H 27.6 ABG pH 7.60 H 7.58 H ABG Total CO2 31.4 H 25.2 ABG O2 Saturation 99.4 H 92.5 L ABG Base Excess 8.9 H 3.6 H ABG Hemoglobin ABG Carboxyhemoglobin POC ABG HHb (Measured) ABG Methemoglobin Ruddy Test Femoral Unable ABG Potassium 4.5 3.7 A-a O2 Difference 12.0 345.0 Respiratory Index 0.1 6.9 Hgb O2 Saturation Sodium 145.0 150.0 H Chloride 110.0 H 116.0 H Glucose 90 77 Lactate 2.2 H 2.8 H Liter Flow 3.0 Vent Mode Prvc Mechanical Rate 12 FiO2 32.0 60.0 Tidal Volume 450 PEEP 5 Crit Value Called To Crit Value Called By Crit Value Read Back Blood Gas Notified Time Potassium Carbon Dioxide Anion Gap BUN Creatinine Est GFR ( Amer) Est GFR (Non-Af Amer) Random Glucose Lactic Acid Calcium Phosphorus Magnesium Total Bilirubin AST ALT Alkaline Phosphatase Ammonia Total Protein Albumin Globulin Albumin/Globulin Ratio Arterial Blood Potassium 4.5 3.7 Blood Type O POSITIVE Antibody Screen Negative 04/09/17 04/09/17 04/09/17 05:20 06:30 06:32 WBC 6.6 RBC 3.16 L Hgb 9.3 L Hct 29.2 L MCV 92.5 MCH 29.5 MCHC 31.9 L RDW 19.7 H Plt Count 146 MPV 10.5 Neut % (Auto) 79.7 H Lymph % (Auto) 10.3 L [place] % (Auto) 6.0 Eos % (Auto) 3.0 Baso % (Auto) 1.0 Neut # 5.2 Lymph # 0.7 L [place] # 0.4 Eos # 0.2 Baso # 0.1 Puncture Site Rt fem pCO2 23 L pO2 436 H HCO3 28.5 H ABG pH 7.64 H* ABG Total CO2 25.5 ABG O2 Saturation 100.2 H ABG Base Excess 4.5 H ABG Hemoglobin 9.6 L ABG Carboxyhemoglobin 1.9 H POC ABG HHb (Measured) -0.2 L ABG Methemoglobin 1.2 Ruddy Test Na ABG Potassium A-a O2 Difference 106.0 Respiratory Index 0.2 Hgb O2 Saturation 97.1 Sodium 143 Chloride 103 Glucose Lactate Liter Flow Vent Mode Prvc Mechanical Rate 12 FiO2 80.0 Tidal Volume 450 PEEP 5 Crit Value Called To Janis hayden /rn Crit Value Called By Gwyn lopez/rt Crit Value Read Back Y Blood Gas Notified Time 615 Potassium 3.7 Carbon Dioxide 25 Anion Gap 19 BUN 53 H Creatinine 7.2 H Est GFR ( Amer) 10 Est GFR (Non-Af Amer) 8 Random Glucose 64 L Lactic Acid Calcium 7.0 L Phosphorus 1.2 L Magnesium 1.8 Total Bilirubin 1.3 AST 39 ALT 31 Alkaline Phosphatase 106 Ammonia Total Protein 7.9 Albumin 3.3 L Globulin 4.6 H Albumin/Globulin Ratio 0.7 L Arterial Blood Potassium Blood Type Antibody Screen 04/09/17 04/09/17 06:32 07:12 WBC RBC Hgb Hct MCV MCH MCHC RDW Plt Count MPV Neut % (Auto) Lymph % (Auto) [place] % (Auto) Eos % (Auto) Baso % (Auto) Neut # Lymph # [place] # Eos # Baso # Puncture Site pCO2 pO2 HCO3 ABG pH ABG Total CO2 ABG O2 Saturation ABG Base Excess ABG Hemoglobin ABG Carboxyhemoglobin POC ABG HHb (Measured) ABG Methemoglobin Ruddy Test ABG Potassium A-a O2 Difference Respiratory Index Hgb O2 Saturation Sodium Chloride Glucose Lactate Liter Flow Vent Mode Mechanical Rate FiO2 Tidal Volume PEEP Crit Value Called To Crit Value Called By Crit Value Read Back Blood Gas Notified Time Potassium Carbon Dioxide Anion Gap BUN Creatinine Est GFR ( Amer) Est GFR (Non-Af Amer) Random Glucose Lactic Acid 2.3 H Calcium Phosphorus Magnesium Total Bilirubin AST ALT Alkaline Phosphatase Ammonia 84 H D Total Protein Albumin Globulin Albumin/Globulin Ratio Arterial Blood Potassium Blood Type Antibody Screen Attending/Attestation - Attestation I have personally seen and examined this patient.: Yes I have fully participated in the care of the patient.: Yes I have reviewed all pertinent clinical information: Yes Notes (Text): 04/09/17 14:20 I have seen and examined the patient. Medical records, lab studies, and imaging were reviewed by me and a management plan was formulated on multidisciplinary rounds with resident Dr. Montes. I agree with their documented assessment and plan. Patient was intubated for airway protection and central line placed. Severe metabolic alkalosis and metabolic encephalopathy from hyperammonemia secondary to liver failure. Critical Care Time 35 minutes. Multi-disciplinary rounds were performed with house staff, nursing, speech therapy, respiratory therapy, pharmacy and nutrition with integrated input from the primary team/attending and other consulting services. The documented time is cumulative and includes review of patient data/exams/labs/chart review and examination of the patient on rounds and throughout the day; time is exclusive of any procedures or teaching time.
--- NOTE | 2017-04-08 19:42 | PCM.PROC ---
<Ferdinand Daly - Last Filed: 04/08/17 19:41> Procedures Attestation:: I certify that I have explained the specified Operation(s) or Procedure(s), risks, benefits and reasonable alternatives to the Patient and/or other person responsible. The opportunity was given to ask questions and all questions answered - Central Line Placement Left Internal Jugular Aseptic technique was employed throughout the procedure: Hand Hygiene done prior to procedure, Full sterile barriers (mask, hair cover, sterile gown, sterile gloves), Full body sterile drape, Chloraprep Antiseptic: 30 second prep for IJ or SC sites CVP Time Out Performed: Yes Pt. Placed on Pulse Ox Monitor: Yes Central Line Prep: Chlorhexidine-Alcohol Combination Local Anesthesia Used: Lidocaine 1% Amount of Anesthesia Used (mls): 3 Ultrasound Used for Placement: Yes Central Line Lumen Inserted: triple Central Line Length: 16 cm Post Procedure: Sutured in Place, Good Blood Return, All Ports Aspirated, Flushed, Capped, Sterile Dressing Applied Secured by: Suture Post procedure dressing: Clear vapor permeable Post Procedure X-Ray: Yes Patient Tolerated Procedure: Well Immediate Complications: None <Rodrigo Almaguer - Last Filed: 04/09/17 14:35> Attending/Attestation - Attestation I have personally seen and examined this patient.: Yes I have fully participated in the care of the patient.: Yes I have reviewed all pertinent clinical information, including history, physical exam and plan: Yes Notes (Text): 04/09/17 14:23 Procedure performed under my supervision. Patient tolerated procedure well, no complications.
--- NOTE | 2017-04-08 19:43 | PCM.PROC ---
<Ferdinand Daly - Last Filed: 04/08/17 19:42> Procedures Attestation:: I certify that I have explained the specified Operation(s) or Procedure(s), risks, benefits and reasonable alternatives to the Patient and/or other person responsible. The opportunity was given to ask questions and all questions answered - Intubation Sedative: Etomidate (20), Other (Propofol 20) Mg Given: 20 Laryngoscope: Glidescope ET Tube Size: 7.5 ET Tube Uncuffed: No ET Tube Secured at Depth: 23 ET Tube Secured Locarion: Lips ET Tube Placement Confirmation: Visualized Passing Through Cords, Breath Sounds Equal Bilaterally, No Breath Sounds Over Epigastrum, Confirmation w/Capnometry Patient Tolerated Procedure: Well Procedure Immediate Complications: None <Rodrigo Almaguer - Last Filed: 04/09/17 14:36> Attending/Attestation - Attestation I have personally seen and examined this patient.: Yes I have fully participated in the care of the patient.: Yes I have reviewed all pertinent clinical information, including history, physical exam and plan: Yes Notes (Text): 04/09/17 14:36 Procedure performed under my supervision. Patient tolerated procedure well, no complications.
--- NOTE | 2017-04-08 20:05 | CP.PCM.HP ---
History of Present Illness - History of Present Illness History of Present Illness: 45-year-old male with PMHchronic hepatitis B, HTN, ESRD [failed renal transplant, TTS] and gastritis was brought to the ER via EMS for altered mental status. Patient's family found him unresponsive at home so they called the ambulance and brought him to the hospital. Patient's family states that he behaved this way when his ammonia level is high. Further history cannot be elicited due to the patient's condition. Patient is nonverbal. No H/Oavailable offhead trauma, convulsions, vomiting, fever, weakness of any extremities. Present on Admission - Present on Admission Any Indicators Present on Admission: No Past Patient History - Infectious Disease Hx of Infectious Diseases: None - Past Medical History & Family History Past Medical History?: Yes - Past Social History Smoking Status: Never Smoked - CARDIAC Hx Hypertension: Yes - PULMONARY Hx Respiratory Disorders: No - NEUROLOGICAL Hx Paralysis: No - HEENT Hx HEENT Problems: Yes Hx Glaucoma: Yes - RENAL Hx Chronic Kidney Disease: Yes Hx Kidney Stones: No - ENDOCRINE/METABOLIC Hx Endocrine Disorders: No - HEMATOLOGICAL/ONCOLOGICAL Hx Blood Transfusions: Yes Hx Blood Transfusion Reaction: No Hx Hepatitis B: Yes - INTEGUMENTARY Hx Dermatological Problems: No - MUSCULOSKELETAL/RHEUMATOLOGICAL Hx Musculoskeletal Disorders: No Hx Falls: No - GASTROINTESTINAL Hx Gastritis: Yes - GENITOURINARY/GYNECOLOGICAL Hx Genitourinary Disorders: No - PSYCHIATRIC Hx Substance Use: No - SURGICAL HISTORY Hx Surgeries: Yes - ANESTHESIA Hx Anesthesia: Yes Hx Anesthesia Reactions: No Hx Malignant Hyperthermia: No Meds Allergies/Adverse Reactions: Allergies Allergy/AdvReac Type Severity Reaction Status Date / Time No Known Allergies Allergy Verified 04/08/17 12:11 Physical Exam - Constitutional Appears: Well - Head Exam Head Exam: ATRAUMATIC, NORMAL INSPECTION, NORMOCEPHALIC - Eye Exam Eye Exam: EOMI, Normal appearance, PERRL Pupil Exam: NORMAL ACCOMODATION, PERRL - ENT Exam ENT Exam: Mucous Membranes Moist, Normal Exam - Neck Exam Neck exam: Positive for: Normal Inspection - Respiratory Exam Respiratory Exam: Decreased Breath Sounds - Cardiovascular Exam Cardiovascular Exam: REGULAR RHYTHM, +S1, +S2 - GI/Abdominal Exam GI & Abdominal Exam: Diminished Bowel Sounds, Soft - Rectal Exam Rectal Exam: Deferred Results - Vital Signs Recent Vital Signs: Last Vital Signs Temp 98.6 F 04/08/17 16:05 Pulse 62 04/08/17 20:00 Resp 17 04/08/17 20:00 BP 134/41 L 04/08/17 19:31 Pulse Ox 100 04/08/17 20:00 - Labs Result Diagrams: 04/10/17 06:50 04/10/17 06:50 Labs: Laboratory Results - last 24 hr 04/08/17 04/08/17 04/08/17 12:17 12:33 12:33 WBC 4.8 RBC 3.31 L Hgb 9.5 L Hct 30.8 L MCV 93.0 D MCH 28.7 MCHC 30.9 L RDW 20.5 H Plt Count 146 MPV 10.4 Neut % (Auto) 66.6 Lymph % (Auto) 13.9 L [place] % (Auto) 12.6 H Eos % (Auto) 4.7 H Baso % (Auto) 2.2 H Neut # 3.2 Lymph # 0.7 L [place] # 0.6 Eos # 0.2 Baso # 0.1 PT INR Puncture Site pCO2 pO2 HCO3 ABG pH ABG Total CO2 ABG O2 Saturation ABG Base Excess Ruddy Test ABG Potassium A-a O2 Difference Respiratory Index Glucose Lactate Liter Flow FiO2 Sodium 145 Potassium 5.6 H Chloride 102 Carbon Dioxide 33 H Anion Gap 16 BUN 48 H Creatinine 5.9 H Est GFR ( Amer) 13 Est GFR (Non-Af Amer) 10 POC Glucose (mg/dL) 73 Random Glucose 79 Lactic Acid Calcium 7.3 L Magnesium 1.9 Total Bilirubin 1.8 H AST 60 H ALT 35 Alkaline Phosphatase 107 Ammonia Total Protein 7.7 Albumin 3.7 Globulin 4.0 H Albumin/Globulin Ratio 0.9 L Arterial Blood Potassium Stool Occult Blood Blood Type Antibody Screen 04/08/17 04/08/17 04/08/17 13:02 13:51 13:51 WBC RBC Hgb Hct MCV MCH MCHC RDW Plt Count MPV Neut % (Auto) Lymph % (Auto) [place] % (Auto) Eos % (Auto) Baso % (Auto) Neut # Lymph # [place] # Eos # Baso # PT 17.2 H INR 1.5 Puncture Site pCO2 pO2 HCO3 ABG pH ABG Total CO2 ABG O2 Saturation ABG Base Excess Ruddy Test ABG Potassium A-a O2 Difference Respiratory Index Glucose Lactate Liter Flow FiO2 Sodium Potassium Chloride Carbon Dioxide Anion Gap BUN Creatinine Est GFR ( Amer) Est GFR (Non-Af Amer) POC Glucose (mg/dL) Random Glucose Lactic Acid 1.8 Calcium Magnesium Total Bilirubin AST ALT Alkaline Phosphatase Ammonia 181 H D Total Protein Albumin Globulin Albumin/Globulin Ratio Arterial Blood Potassium Stool Occult Blood Blood Type Antibody Screen 04/08/17 04/08/17 04/08/17 13:51 13:51 16:02 WBC RBC Hgb Hct MCV MCH MCHC RDW Plt Count MPV Neut % (Auto) Lymph % (Auto) [place] % (Auto) Eos % (Auto) Baso % (Auto) Neut # Lymph # [place] # Eos # Baso # PT INR Puncture Site Dr. meeks pCO2 31 L pO2 177 H HCO3 31.9 H ABG pH 7.60 H ABG Total CO2 31.4 H ABG O2 Saturation 99.4 H ABG Base Excess 8.9 H Ruddy Test Femoral ABG Potassium 4.5 A-a O2 Difference 12.0 Respiratory Index 0.1 Glucose 90 Lactate 2.2 H Liter Flow 3.0 FiO2 32.0 Sodium 145.0 Potassium Chloride 110.0 H Carbon Dioxide Anion Gap BUN Creatinine Est GFR ( Amer) Est GFR (Non-Af Amer) POC Glucose (mg/dL) Random Glucose Lactic Acid Calcium Magnesium Total Bilirubin AST ALT Alkaline Phosphatase Ammonia Total Protein Albumin Globulin Albumin/Globulin Ratio Arterial Blood Potassium 4.5 Stool Occult Blood Positive H Blood Type O POSITIVE Antibody Screen Negative
[2017-04-08 20:24] LABS: ABG ALLEN TEST UNABLE; ABG MECHANICAL RATE 12; ARTERIAL BLOOD GAS MODE PRVC; ATERIAL BLOOD GAS PEEP 5; DRAW SITE RR
[2017-04-08] MEDS: Sodium Chloride 0.45% 1,000 ML IV SCH (21:19)
[2017-04-09] MEDS: Sodium Chloride 0.45% 1,000 ML IV SCH (02:25)
[2017-04-09 06:14] LABS: ABG MECHANICAL RATE 12; ARTERIAL BLOOD GAS MODE PRVC; ARTERIAL BLOOD HGB O2 SAT 97.1 % (95.0-98.0); ATERIAL BLOOD GAS PEEP 5; CARBOXYHEMOGLOBIN 1.9 % (0.5-1.5); DRAW SITE RT FEM; HHB -0.2 % (0.0-5.0); METHEMOGLOBIN 1.2 % (0.0-3.0)
[2017-04-09 06:47] LABS: BASO # 0.1 K/uL (0.0-0.2); EOS # 0.2 K/uL (0.0-0.7); HEMATOCRIT 29.2 % (35.0-51.0); LYMPH # 0.7 K/uL (1.0-4.3); LYMPH % 10.3 % (20.0-40.0); MEAN CELL VOLUME 92.5 fL (80.0-94.0); MEAN CORPUSCULAR HEMOGLOBIN 29.5 pg (27.0-31.0); MEAN CORPUSCULAR HGB CONC 31.9 g/dL (33.0-37.0); MEAN PLATELET VOLUME 10.5 fL (7.2-11.7); MONO # 0.4 K/uL (0.0-0.8); NRBC % 0.4 % (0.0-2.0); RED CELL DISTRIBUTION WIDTH 19.7 % (11.5-14.5); WHITE BLOOD COUNT 6.6 K/uL (4.8-10.8)
[2017-04-09 07:08] LABS: ALB/GLOB RATIO 0.7 (1.0-2.1); BILIRUBIN,TOTAL 1.3 mg/dL (0.2-1.3); MAGNESIUM 1.8 mg/dL (1.6-2.3); PHOSPHOROUS 1.2 mg/dL (2.5-4.5); POTASSIUM 3.7 mmol/L (3.6-5.2); TOTAL PROTEIN 7.9 g/dL (6.3-8.3)
--- NOTE | 2017-04-09 08:47 | RAD ---
HISTORY: intubated COMPARISON: Portable chest 04/08/2017. FINDINGS: Endotracheal tube and left central venous line unchanged in position. Left central venous line remains terminating at the superior left mediastinum. A nasogastric tube is again identified placed entering into left upper quadrant abdomen the tip off the current image. Finally, right central venous dialysis catheter is again identified total from below. LUNGS: Limited right basilar airspace disease difficult to differentiate from crowding of the bronchovascular markings as the patient slightly rotated to the right. Left chest remains clear. PLEURA: No significant pleural effusion identified, no pneumothorax apparent. CARDIOVASCULAR: Normal. OSSEOUS STRUCTURES: No significant abnormalities. VISUALIZED UPPER ABDOMEN: Normal. OTHER FINDINGS: None. IMPRESSION: Borderline airspace disease right base versus crowding of bronchovascular markings. The exam is otherwise stable in the interval.
--- NOTE | 2017-04-09 09:01 | RAD ---
HISTORY: post intubation COMPARISON: Portable chest 04/08/2017. FINDINGS: The endotracheal tube is unchanged in position as well as left central venous line again seen terminating at the media upper left mediastinum. A nasogastric is in retracted and now terminates in the mid esophagus with the side hole as high as the pharyngo esophageal junction. Advancement of the catheter 25-30 cm to coronal in the stomach is advised followed by confirmation radiography. Pelvic right center venous dialysis catheter is noted in position LUNGS: No airspace disease appreciated bilaterally however prominence of the asses vein versus even possibly calcified nodule or mass at the lateral right mediastinum is again appreciated abutting the inferior right trachea and right mainstem bronchus. It is increased in size compared to distant chest radiograph dated 10/12/2013 and is probably a nonaggressive process given very slow interval increase in size. Consider follow-up contrast chest CT for additional characterization unless there is a contraindication. PLEURA: No significant pleural effusion identified, no pneumothorax apparent. CARDIOVASCULAR: Normal. OSSEOUS STRUCTURES: No significant abnormalities. VISUALIZED UPPER ABDOMEN: Normal. OTHER FINDINGS: None. IMPRESSION: Stable well ETT left centers line and dialysis catheter placement with nasogastric tube retracted into the esophagus. Advancement 25-30 into the stomach following coverage radiography is advised. No interval airspace disease or effusions bilaterally. Cardiac silhouette is stable. Consider follow-up chest CT to evaluate right azygos dilatation/lesion.
--- NOTE | 2017-04-09 09:16 | RAD ---
HISTORY: check after the replacment of ngt COMPARISON: Portable chest 04/08/2017. FINDINGS: Endotracheal tube is unchanged in position with nasogastric tube reintroduced into the stomach adequately. Left central venous line is unchanged in position with prominent azygos density again appreciated. Permanent dialysis catheter unchanged as well. LUNGS: No interval acute infiltrates bilaterally. PLEURA: No significant pleural effusion identified, no pneumothorax apparent. CARDIOVASCULAR: Stable cardiac silhouette and pulmonary vascular pattern. OSSEOUS STRUCTURES: No significant abnormalities. VISUALIZED UPPER ABDOMEN: Normal. OTHER FINDINGS: None. IMPRESSION: No acute cardiopulmonary disease is appreciated. Nasogastric tube has been adjusted terminating in the stomach on confirmation radiography.
--- NOTE | 2017-04-09 09:58 | CP.PCM.CON ---
History of Present Illness - History of Present Illness History of Present Illness: Patient is a 46 year old male with a past medical history of chronic Hep B, ESRD on HD TTS (patient has lumbar HD cath to IVC) and failed renal transplant, presenting to the ED today after the patient was found unresponsive by family and they decided to call ambulance. According to ED, the family stated that the patient behaves this way when his ammonia levels are elevated. There is no family at bedside at time of examination. ROS unattainable as patient is non- responsive. Reportedly had melena PMH: chronic Hep B, ESRD on HD TTS, failed renal tranplant; failed PD due to peritonitis; central venous stenosis, HTN PSH: IVC dialysis catheter insertion and multiple replacements, failed right arm AV graft, failed renal transplant, PD cath placxement and removal Family: unknown; no CKD Social: lives with family hep B due to blood transfusion in 1984, denies smoking , alcohol or illicit drugs All: NKDA Review of Systems - Review of Systems Systems not reviewed;Unavailable: Intubated Past Patient History - Infectious Disease Hx of Infectious Diseases: None - Past Medical History & Family History Past Medical History?: Yes Past Family History: Reviewed and not pertinent Pertinent Family History: no CKD - Past Social History Smoking Status: Never Smoked Chewing Tobacco Use: No Cigar Use: No Alcohol: None Drugs: Denies Home Situation {Lives}: With Family Domestic Violence: Negative - CARDIAC Hx Hypertension: Yes - PULMONARY Hx Respiratory Disorders: No - NEUROLOGICAL Hx Paralysis: No - HEENT Hx HEENT Problems: Yes Hx Glaucoma: Yes - RENAL Hx Chronic Kidney Disease: Yes Hx Kidney Stones: No - ENDOCRINE/METABOLIC Hx Endocrine Disorders: No - HEMATOLOGICAL/ONCOLOGICAL Hx Blood Transfusions: Yes Hx Blood Transfusion Reaction: No Hx Hepatitis B: Yes - INTEGUMENTARY Hx Dermatological Problems: No - MUSCULOSKELETAL/RHEUMATOLOGICAL Hx Musculoskeletal Disorders: No Hx Falls: No - GASTROINTESTINAL Hx Gastritis: Yes - GENITOURINARY/GYNECOLOGICAL Hx Genitourinary Disorders: No - PSYCHIATRIC Hx Substance Use: No - SURGICAL HISTORY Hx Surgeries: Yes - ANESTHESIA Hx Anesthesia: Yes Hx Anesthesia Reactions: No Hx Malignant Hyperthermia: No Meds Allergies/Adverse Reactions: Allergies Allergy/AdvReac Type Severity Reaction Status Date / Time No Known Allergies Allergy Verified 04/08/17 12:11 - Medications Medications: Current Medications Lactulose (Enulose) 20 gm NG Q8H [facility] Last Admin: 04/09/17 05:18 Dose: 20 gm Pantoprazole Sodium (Protonix Inj) 40 mg IVP DAILY [facility] Rifaximin (Xifaxan) 550 mg NG BID [facility] Physical Exam - Constitutional Appears: Chronically Ill, Other (unresponsive) Additional comments: unresponsive on vent - Head Exam Head Exam: ATRAUMATIC, NORMAL INSPECTION - Eye Exam Eye Exam: Scleral icterus - ENT Exam ENT Exam: absent: Mucous Membranes Dry, Mucous Membranes Moist, Normal Exam, Normal External Ear Exam, Normal Oropharynx, TM's Normal Bilaterally - Neck Exam Neck exam: Positive for: Normal Inspection. Negative for: Tenderness - Respiratory Exam Respiratory Exam: Rhonchi, Respiratory Distress - Cardiovascular Exam Cardiovascular Exam: REGULAR RHYTHM, +S1 - GI/Abdominal Exam GI & Abdominal Exam: Distended, Firm - Extremities Exam Extremities exam: Positive for: normal inspection. Negative for: tenderness - Neurological Exam Neurological exam: Altered, Motor Sensory Deficit - Skin Skin Exam: Dry, Warm Results - Vital Signs Recent Vital Signs: Last Vital Signs Temp 97.5 F L 04/09/17 04:00 Pulse 71 04/09/17 07:10 Resp 21 04/09/17 07:10 BP 110/65 04/09/17 06:24 Pulse Ox 100 04/09/17 07:10 - Labs Result Diagrams: 04/09/17 06:30 04/09/17 06:32 Labs: Laboratory Results - last 24 hr 04/08/17 04/08/17 04/08/17 12:17 12:33 12:33 WBC 4.8 RBC 3.31 L Hgb 9.5 L Hct 30.8 L MCV 93.0 D MCH 28.7 MCHC 30.9 L RDW 20.5 H Plt Count 146 MPV 10.4 Neut % (Auto) 66.6 Lymph % (Auto) 13.9 L [place] % (Auto) 12.6 H Eos % (Auto) 4.7 H Baso % (Auto) 2.2 H Neut # 3.2 Lymph # 0.7 L [place] # 0.6 Eos # 0.2 Baso # 0.1 PT INR Puncture Site pCO2 pO2 HCO3 ABG pH ABG Total CO2 ABG O2 Saturation ABG Base Excess ABG Hemoglobin ABG Carboxyhemoglobin POC ABG HHb (Measured) ABG Methemoglobin Ruddy Test ABG Potassium A-a O2 Difference Respiratory Index Hgb O2 Saturation Glucose Lactate Liter Flow Vent Mode Mechanical Rate FiO2 Tidal Volume PEEP Crit Value Called To Crit Value Called By Crit Value Read Back Blood Gas Notified Time Sodium 145 Potassium 5.6 H Chloride 102 Carbon Dioxide 33 H Anion Gap 16 BUN 48 H Creatinine 5.9 H Est GFR ( Amer) 13 Est GFR (Non-Af Amer) 10 POC Glucose (mg/dL) 73 Random Glucose 79 Lactic Acid Calcium 7.3 L Phosphorus Magnesium 1.9 Total Bilirubin 1.8 H AST 60 H ALT 35 Alkaline Phosphatase 107 Ammonia Total Protein 7.7 Albumin 3.7 Globulin 4.0 H Albumin/Globulin Ratio 0.9 L Arterial Blood Potassium Stool Occult Blood Blood Type Antibody Screen 04/08/17 04/08/17 04/08/17 13:02 13:51 13:51 WBC RBC Hgb Hct MCV MCH MCHC RDW Plt Count MPV Neut % (Auto) Lymph % (Auto) [place] % (Auto) Eos % (Auto) Baso % (Auto) Neut # Lymph # [place] # Eos # Baso # PT 17.2 H INR 1.5 Puncture Site pCO2 pO2 HCO3 ABG pH ABG Total CO2 ABG O2 Saturation ABG Base Excess ABG Hemoglobin ABG Carboxyhemoglobin POC ABG HHb (Measured) ABG Methemoglobin Ruddy Test ABG Potassium A-a O2 Difference Respiratory Index Hgb O2 Saturation Glucose Lactate Liter Flow Vent Mode Mechanical Rate FiO2 Tidal Volume PEEP Crit Value Called To Crit Value Called By Crit Value Read Back Blood Gas Notified Time Sodium Potassium Chloride Carbon Dioxide Anion Gap BUN Creatinine Est GFR ( Amer) Est GFR (Non-Af Amer) POC Glucose (mg/dL) Random Glucose Lactic Acid 1.8 Calcium Phosphorus Magnesium Total Bilirubin AST ALT Alkaline Phosphatase Ammonia 181 H D Total Protein Albumin Globulin Albumin/Globulin Ratio Arterial Blood Potassium Stool Occult Blood Blood Type Antibody Screen 04/08/17 04/08/17 04/08/17 13:51 13:51 16:02 WBC RBC Hgb Hct MCV MCH MCHC RDW Plt Count MPV Neut % (Auto) Lymph % (Auto) [place] % (Auto) Eos % (Auto) Baso % (Auto) Neut # Lymph # [place] # Eos # Baso # PT INR Puncture Site DrRosalinda meeks pCO2 31 L pO2 177 H HCO3 31.9 H ABG pH 7.60 H ABG Total CO2 31.4 H ABG O2 Saturation 99.4 H ABG Base Excess 8.9 H ABG Hemoglobin ABG Carboxyhemoglobin POC ABG HHb (Measured) ABG Methemoglobin Ruddy Test Femoral ABG Potassium 4.5 A-a O2 Difference 12.0 Respiratory Index 0.1 Hgb O2 Saturation Glucose 90 Lactate 2.2 H Liter Flow 3.0 Vent Mode Mechanical Rate FiO2 32.0 Tidal Volume PEEP Crit Value Called To Crit Value Called By Crit Value Read Back Blood Gas Notified Time Sodium 145.0 Potassium Chloride 110.0 H Carbon Dioxide Anion Gap BUN Creatinine Est GFR ( Amer) Est GFR (Non-Af Amer) POC Glucose (mg/dL) Random Glucose Lactic Acid Calcium Phosphorus Magnesium Total Bilirubin AST ALT Alkaline Phosphatase Ammonia Total Protein Albumin Globulin Albumin/Globulin Ratio Arterial Blood Potassium 4.5 Stool Occult Blood Positive H Blood Type O POSITIVE Antibody Screen Negative 04/08/17 04/09/17 04/09/17 20:23 05:20 06:30 WBC 6.6 RBC 3.16 L Hgb 9.3 L Hct 29.2 L MCV 92.5 MCH 29.5 MCHC 31.9 L RDW 19.7 H Plt Count 146 MPV 10.5 Neut % (Auto) 79.7 H Lymph % (Auto) 10.3 L [place] % (Auto) 6.0 Eos % (Auto) 3.0 Baso % (Auto) 1.0 Neut # 5.2 Lymph # 0.7 L [place] # 0.4 Eos # 0.2 Baso # 0.1 PT INR Puncture Site Rr Rt fem pCO2 26 L 23 L pO2 50 L 436 H HCO3 27.6 28.5 H ABG pH 7.58 H 7.64 H* ABG Total CO2 25.2 25.5 ABG O2 Saturation 92.5 L 100.2 H ABG Base Excess 3.6 H 4.5 H ABG Hemoglobin 9.6 L ABG Carboxyhemoglobin 1.9 H POC ABG HHb (Measured) -0.2 L ABG Methemoglobin 1.2 Ruddy Test Unable Na ABG Potassium 3.7 A-a O2 Difference 345.0 106.0 Respiratory Index 6.9 0.2 Hgb O2 Saturation 97.1 Glucose 77 Lactate 2.8 H Liter Flow Vent Mode Prvc Prvc Mechanical Rate 12 12 FiO2 60.0 80.0 Tidal Volume 450 450 PEEP 5 5 Crit Value Called To Janis hayden /rn Crit Value Called By Gwyn lopez/rt Crit Value Read Back Y Blood Gas Notified Time 615 Sodium 150.0 H Potassium Chloride 116.0 H Carbon Dioxide Anion Gap BUN Creatinine Est GFR ( Amer) Est GFR (Non-Af Amer) POC Glucose (mg/dL) Random Glucose Lactic Acid Calcium Phosphorus Magnesium Total Bilirubin AST ALT Alkaline Phosphatase Ammonia Total Protein Albumin Globulin Albumin/Globulin Ratio Arterial Blood Potassium 3.7 Stool Occult Blood Blood Type Antibody Screen 04/09/17 04/09/17 04/09/17 06:32 06:32 07:12 WBC RBC Hgb Hct MCV MCH MCHC RDW Plt Count MPV Neut % (Auto) Lymph % (Auto) [place] % (Auto) Eos % (Auto) Baso % (Auto) Neut # Lymph # [place] # Eos # Baso # PT INR Puncture Site pCO2 pO2 HCO3 ABG pH ABG Total CO2 ABG O2 Saturation ABG Base Excess ABG Hemoglobin ABG Carboxyhemoglobin POC ABG HHb (Measured) ABG Methemoglobin Ruddy Test ABG Potassium A-a O2 Difference Respiratory Index Hgb O2 Saturation Glucose Lactate Liter Flow Vent Mode Mechanical Rate FiO2 Tidal Volume PEEP Crit Value Called To Crit Value Called By Crit Value Read Back Blood Gas Notified Time Sodium 143 Potassium 3.7 Chloride 103 Carbon Dioxide 25 Anion Gap 19 BUN 53 H Creatinine 7.2 H Est GFR ( Amer) 10 Est GFR (Non-Af Amer) 8 POC Glucose (mg/dL) Random Glucose 64 L Lactic Acid 2.3 H Calcium 7.0 L Phosphorus 1.2 L Magnesium 1.8 Total Bilirubin 1.3 AST 39 ALT 31 Alkaline Phosphatase 106 Ammonia 84 H D Total Protein 7.9 Albumin 3.3 L Globulin 4.6 H Albumin/Globulin Ratio 0.7 L Arterial Blood Potassium Stool Occult Blood Blood Type Antibody Screen Assessment & Plan (1) 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 Status: Acute (2) 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
--- NOTE | 2017-04-09 10:00 | CP.PCM.CON ---
History of Present Illness - History of Present Illness History of Present Illness: Reason for consultation: respiratory failure on ventilatory support 46-year-old male with history of end-stage renal disease on hemodialysis, history of chronic hepatitis B infection, failed renal transplant who was brought to emergency room after he was found unresponsive by the family. Patient was intubated in the ICU after he remained obtunded with very high ammonia level. Patient on ventilatory support FiO2 50%. Patient remains unresponsive being treated for hepatic encephalopathy with no acute pathology our CT of head. PMH: chronic Hep B, ESRD on HD TTS PSH: abdominal surg (unknown), failed right arm AV graft, failed renal transplant, lumbar HD cath to IVC Family: unknown Social: lives with family hep B due to blood transfusion in 1984, denies smoking , alcohol or illicit drugs All: NKDA Review of Systems - Review of Systems Systems not reviewed;Unavailable: Intubated Past Patient History - Infectious Disease Hx of Infectious Diseases: None - Past Medical History & Family History Past Medical History?: Yes - Past Social History Smoking Status: Never Smoked - CARDIAC Hx Hypertension: Yes - PULMONARY Hx Respiratory Disorders: No - NEUROLOGICAL Hx Paralysis: No - HEENT Hx HEENT Problems: Yes Hx Glaucoma: Yes - RENAL Hx Chronic Kidney Disease: Yes Hx Kidney Stones: No - ENDOCRINE/METABOLIC Hx Endocrine Disorders: No - HEMATOLOGICAL/ONCOLOGICAL Hx Blood Transfusions: Yes Hx Blood Transfusion Reaction: No Hx Hepatitis B: Yes - INTEGUMENTARY Hx Dermatological Problems: No - MUSCULOSKELETAL/RHEUMATOLOGICAL Hx Musculoskeletal Disorders: No Hx Falls: No - GASTROINTESTINAL Hx Gastritis: Yes - GENITOURINARY/GYNECOLOGICAL Hx Genitourinary Disorders: No - PSYCHIATRIC Hx Substance Use: No - SURGICAL HISTORY Hx Surgeries: Yes - ANESTHESIA Hx Anesthesia: Yes Hx Anesthesia Reactions: No Hx Malignant Hyperthermia: No Meds Allergies/Adverse Reactions: Allergies Allergy/AdvReac Type Severity Reaction Status Date / Time No Known Allergies Allergy Verified 04/08/17 12:11 - Medications Medications: Current Medications Lactulose (Enulose) 20 gm NG Q8H [facility] Last Admin: 04/09/17 05:18 Dose: 20 gm Pantoprazole Sodium (Protonix Inj) 40 mg IVP DAILY [facility] Rifaximin (Xifaxan) 550 mg NG BID [facility] Physical Exam - Head Exam Head Exam: ATRAUMATIC, NORMOCEPHALIC - ENT Exam ENT Exam: Mucous Membranes Moist - Neck Exam Neck exam: Positive for: Normal Inspection - Respiratory Exam Respiratory Exam: Clear to Auscultation Bilateral - Cardiovascular Exam Cardiovascular Exam: REGULAR RHYTHM - GI/Abdominal Exam GI & Abdominal Exam: Normal Bowel Sounds, Soft Results - Vital Signs Recent Vital Signs: Last Vital Signs Temp 97.5 F L 04/09/17 04:00 Pulse 71 04/09/17 07:10 Resp 21 04/09/17 07:10 BP 110/65 04/09/17 06:24 Pulse Ox 100 04/09/17 07:10 - Labs Result Diagrams: 04/09/17 06:30 04/09/17 06:32 Labs: Laboratory Results - last 24 hr 04/08/17 04/08/17 04/08/17 12:17 12:33 12:33 WBC 4.8 RBC 3.31 L Hgb 9.5 L Hct 30.8 L MCV 93.0 D MCH 28.7 MCHC 30.9 L RDW 20.5 H Plt Count 146 MPV 10.4 Neut % (Auto) 66.6 Lymph % (Auto) 13.9 L [place] % (Auto) 12.6 H Eos % (Auto) 4.7 H Baso % (Auto) 2.2 H Neut # 3.2 Lymph # 0.7 L [place] # 0.6 Eos # 0.2 Baso # 0.1 PT INR Puncture Site pCO2 pO2 HCO3 ABG pH ABG Total CO2 ABG O2 Saturation ABG Base Excess ABG Hemoglobin ABG Carboxyhemoglobin POC ABG HHb (Measured) ABG Methemoglobin Ruddy Test ABG Potassium A-a O2 Difference Respiratory Index Hgb O2 Saturation Glucose Lactate Liter Flow Vent Mode Mechanical Rate FiO2 Tidal Volume PEEP Crit Value Called To Crit Value Called By Crit Value Read Back Blood Gas Notified Time Sodium 145 Potassium 5.6 H Chloride 102 Carbon Dioxide 33 H Anion Gap 16 BUN 48 H Creatinine 5.9 H Est GFR ( Amer) 13 Est GFR (Non-Af Amer) 10 POC Glucose (mg/dL) 73 Random Glucose 79 Lactic Acid Calcium 7.3 L Phosphorus Magnesium 1.9 Total Bilirubin 1.8 H AST 60 H ALT 35 Alkaline Phosphatase 107 Ammonia Total Protein 7.7 Albumin 3.7 Globulin 4.0 H Albumin/Globulin Ratio 0.9 L Arterial Blood Potassium Stool Occult Blood Blood Type Antibody Screen 04/08/17 04/08/17 04/08/17 13:02 13:51 13:51 WBC RBC Hgb Hct MCV MCH MCHC RDW Plt Count MPV Neut % (Auto) Lymph % (Auto) [place] % (Auto) Eos % (Auto) Baso % (Auto) Neut # Lymph # [place] # Eos # Baso # PT 17.2 H INR 1.5 Puncture Site pCO2 pO2 HCO3 ABG pH ABG Total CO2 ABG O2 Saturation ABG Base Excess ABG Hemoglobin ABG Carboxyhemoglobin POC ABG HHb (Measured) ABG Methemoglobin Ruddy Test ABG Potassium A-a O2 Difference Respiratory Index Hgb O2 Saturation Glucose Lactate Liter Flow Vent Mode Mechanical Rate FiO2 Tidal Volume PEEP Crit Value Called To Crit Value Called By Crit Value Read Back Blood Gas Notified Time Sodium Potassium Chloride Carbon Dioxide Anion Gap BUN Creatinine Est GFR ( Amer) Est GFR (Non-Af Amer) POC Glucose (mg/dL) Random Glucose Lactic Acid 1.8 Calcium Phosphorus Magnesium Total Bilirubin AST ALT Alkaline Phosphatase Ammonia 181 H D Total Protein Albumin Globulin Albumin/Globulin Ratio Arterial Blood Potassium Stool Occult Blood Blood Type Antibody Screen 04/08/17 04/08/17 04/08/17 13:51 13:51 16:02 WBC RBC Hgb Hct MCV MCH MCHC RDW Plt Count MPV Neut % (Auto) Lymph % (Auto) [place] % (Auto) Eos % (Auto) Baso % (Auto) Neut # Lymph # [place] # Eos # Baso # PT INR Puncture Site Dr. meeks pCO2 31 L pO2 177 H HCO3 31.9 H ABG pH 7.60 H ABG Total CO2 31.4 H ABG O2 Saturation 99.4 H ABG Base Excess 8.9 H ABG Hemoglobin ABG Carboxyhemoglobin POC ABG HHb (Measured) ABG Methemoglobin Ruddy Test Femoral ABG Potassium 4.5 A-a O2 Difference 12.0 Respiratory Index 0.1 Hgb O2 Saturation Glucose 90 Lactate 2.2 H Liter Flow 3.0 Vent Mode Mechanical Rate FiO2 32.0 Tidal Volume PEEP Crit Value Called To Crit Value Called By Crit Value Read Back Blood Gas Notified Time Sodium 145.0 Potassium Chloride 110.0 H Carbon Dioxide Anion Gap BUN Creatinine Est GFR ( Amer) Est GFR (Non-Af Amer) POC Glucose (mg/dL) Random Glucose Lactic Acid Calcium Phosphorus Magnesium Total Bilirubin AST ALT Alkaline Phosphatase Ammonia Total Protein Albumin Globulin Albumin/Globulin Ratio Arterial Blood Potassium 4.5 Stool Occult Blood Positive H Blood Type O POSITIVE Antibody Screen Negative 04/08/17 04/09/17 04/09/17 20:23 05:20 06:30 WBC 6.6 RBC 3.16 L Hgb 9.3 L Hct 29.2 L MCV 92.5 MCH 29.5 MCHC 31.9 L RDW 19.7 H Plt Count 146 MPV 10.5 Neut % (Auto) 79.7 H Lymph % (Auto) 10.3 L [place] % (Auto) 6.0 Eos % (Auto) 3.0 Baso % (Auto) 1.0 Neut # 5.2 Lymph # 0.7 L [place] # 0.4 Eos # 0.2 Baso # 0.1 PT INR Puncture Site Rr Rt fem pCO2 26 L 23 L pO2 50 L 436 H HCO3 27.6 28.5 H ABG pH 7.58 H 7.64 H* ABG Total CO2 25.2 25.5 ABG O2 Saturation 92.5 L 100.2 H ABG Base Excess 3.6 H 4.5 H ABG Hemoglobin 9.6 L ABG Carboxyhemoglobin 1.9 H POC ABG HHb (Measured) -0.2 L ABG Methemoglobin 1.2 Ruddy Test Unable Na ABG Potassium 3.7 A-a O2 Difference 345.0 106.0 Respiratory Index 6.9 0.2 Hgb O2 Saturation 97.1 Glucose 77 Lactate 2.8 H Liter Flow Vent Mode Prvc Prvc Mechanical Rate 12 12 FiO2 60.0 80.0 Tidal Volume 450 450 PEEP 5 5 Crit Value Called To Janis hayden /rn Crit Value Called By Gwyn lopez/rt Crit Value Read Back Y Blood Gas Notified Time 615 Sodium 150.0 H Potassium Chloride 116.0 H Carbon Dioxide Anion Gap BUN Creatinine Est GFR ( Amer) Est GFR (Non-Af Amer) POC Glucose (mg/dL) Random Glucose Lactic Acid Calcium Phosphorus Magnesium Total Bilirubin AST ALT Alkaline Phosphatase Ammonia Total Protein Albumin Globulin Albumin/Globulin Ratio Arterial Blood Potassium 3.7 Stool Occult Blood Blood Type Antibody Screen 04/09/17 04/09/17 04/09/17 06:32 06:32 07:12 WBC RBC Hgb Hct MCV MCH MCHC RDW Plt Count MPV Neut % (Auto) Lymph % (Auto) [place] % (Auto) Eos % (Auto) Baso % (Auto) Neut # Lymph # [place] # Eos # Baso # PT INR Puncture Site pCO2 pO2 HCO3 ABG pH ABG Total CO2 ABG O2 Saturation ABG Base Excess ABG Hemoglobin ABG Carboxyhemoglobin POC ABG HHb (Measured) ABG Methemoglobin Ruddy Test ABG Potassium A-a O2 Difference Respiratory Index Hgb O2 Saturation Glucose Lactate Liter Flow Vent Mode Mechanical Rate FiO2 Tidal Volume PEEP Crit Value Called To Crit Value Called By Crit Value Read Back Blood Gas Notified Time Sodium 143 Potassium 3.7 Chloride 103 Carbon Dioxide 25 Anion Gap 19 BUN 53 H Creatinine 7.2 H Est GFR ( Amer) 10 Est GFR (Non-Af Amer) 8 POC Glucose (mg/dL) Random Glucose 64 L Lactic Acid 2.3 H Calcium 7.0 L Phosphorus 1.2 L Magnesium 1.8 Total Bilirubin 1.3 AST 39 ALT 31 Alkaline Phosphatase 106 Ammonia 84 H D Total Protein 7.9 Albumin 3.3 L Globulin 4.6 H Albumin/Globulin Ratio 0.7 L Arterial Blood Potassium Stool Occult Blood Blood Type Antibody Screen Assessment & Plan (1) 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 Status: Acute Comment: Patient intubated secondary to hepatic encephalopathy/coma. Continue lactulose. Start weaning when patient more responsive. Continue hemodialysis. Feeding (2) ESRD (end stage renal disease) on dialysis Status: Acute
--- NOTE | 2017-04-09 10:38 | CP.PCM.CON ---
History of Present Illness - History of Present Illness History of Present Illness: ASked to see pt for confusion. Covering DR Ferrera h/o cirrhosis, HBV, CRF, HD, esoph varices, s/p EGD and banding, now with confusion- intubated. [id number]. Review of Systems - Review of Systems Systems not reviewed;Unavailable: Altered Mental Status - Constitutional Constitutional: absent: Fever, Headache, Weight Gain, Weight Loss - EENT Eyes: absent: Photophobia Nose/Mouth/Throat: absent: Epistaxis, Tongue Swelling - Cardiovascular Cardiovascular: absent: Chest Pain, Dyspnea, Palpitations - Respiratory Respiratory: absent: Hemoptysis, Wheezing - Gastrointestinal Gastrointestinal: absent: Abdominal Pain, Dysphagia, Hematemesis, Hematochezia, Melena, Vomiting - Genitourinary Genitourinary: absent: Flank Pain, Hematuria - Musculoskeletal Musculoskeletal: absent: Arthralgias, Muscle Cramps - Integumentary Integumentary: absent: Rash - Neurological Neurological: Confusion. absent: Convulsions, Tremor - Psychiatric Psychiatric: absent: Hallucinations Past Patient History - Infectious Disease Hx of Infectious Diseases: None - Past Medical History & Family History Past Medical History?: Yes - Past Social History Smoking Status: Never Smoked - CARDIAC Hx Hypertension: Yes - PULMONARY Hx Respiratory Disorders: No - NEUROLOGICAL Hx Paralysis: No - HEENT Hx HEENT Problems: Yes Hx Glaucoma: Yes - RENAL Hx Chronic Kidney Disease: Yes Hx Kidney Stones: No - ENDOCRINE/METABOLIC Hx Endocrine Disorders: No - HEMATOLOGICAL/ONCOLOGICAL Hx Blood Transfusions: Yes Hx Blood Transfusion Reaction: No Hx Hepatitis B: Yes - INTEGUMENTARY Hx Dermatological Problems: No - MUSCULOSKELETAL/RHEUMATOLOGICAL Hx Musculoskeletal Disorders: No Hx Falls: No - GASTROINTESTINAL Hx Gastritis: Yes - GENITOURINARY/GYNECOLOGICAL Hx Genitourinary Disorders: No - PSYCHIATRIC Hx Substance Use: No - SURGICAL HISTORY Hx Surgeries: Yes - ANESTHESIA Hx Anesthesia: Yes Hx Anesthesia Reactions: No Hx Malignant Hyperthermia: No Meds Allergies/Adverse Reactions: Allergies Allergy/AdvReac Type Severity Reaction Status Date / Time No Known Allergies Allergy Verified 04/08/17 12:11 - Medications Medications: Current Medications Epoetin William (Procrit) 10,000 unit IV TTS ROHAN Lactulose (Enulose) 20 gm NG Q8H ROHAN Last Admin: 04/09/17 05:18 Dose: 20 gm Pantoprazole Sodium (Protonix Inj) 40 mg IVP DAILY ROHAN Rifaximin (Xifaxan) 550 mg NG BID ROHAN Physical Exam - Constitutional Appears: Chronically Ill - ENT Exam Additional comments: intubated - Respiratory Exam Respiratory Exam: Clear to Auscultation Bilateral - Cardiovascular Exam Cardiovascular Exam: RRR - GI/Abdominal Exam GI & Abdominal Exam: Normal Bowel Sounds, Soft. absent: Mass - Extremities Exam Extremities exam: Positive for: pedal edema - Neurological Exam Additional comments: Intubated, poor responsive. Results - Vital Signs Recent Vital Signs: Last Vital Signs Temp 97.5 F L 04/09/17 04:00 Pulse 71 04/09/17 07:10 Resp 21 04/09/17 07:10 BP 110/65 04/09/17 06:24 Pulse Ox 100 04/09/17 07:10 - Labs Result Diagrams: 04/09/17 06:30 04/09/17 06:32 Labs: Laboratory Results - last 24 hr 04/08/17 04/08/17 04/08/17 12:17 12:33 12:33 WBC 4.8 RBC 3.31 L Hgb 9.5 L Hct 30.8 L MCV 93.0 D MCH 28.7 MCHC 30.9 L RDW 20.5 H Plt Count 146 MPV 10.4 Neut % (Auto) 66.6 Lymph % (Auto) 13.9 L Hartley % (Auto) 12.6 H Eos % (Auto) 4.7 H Baso % (Auto) 2.2 H Neut # 3.2 Lymph # 0.7 L Hartley # 0.6 Eos # 0.2 Baso # 0.1 PT INR Puncture Site pCO2 pO2 HCO3 ABG pH ABG Total CO2 ABG O2 Saturation ABG Base Excess ABG Hemoglobin ABG Carboxyhemoglobin POC ABG HHb (Measured) ABG Methemoglobin Ruddy Test ABG Potassium A-a O2 Difference Respiratory Index Hgb O2 Saturation Glucose Lactate Liter Flow Vent Mode Mechanical Rate FiO2 Tidal Volume PEEP Crit Value Called To Crit Value Called By Crit Value Read Back Blood Gas Notified Time Sodium 145 Potassium 5.6 H Chloride 102 Carbon Dioxide 33 H Anion Gap 16 BUN 48 H Creatinine 5.9 H Est GFR ( Amer) 13 Est GFR (Non-Af Amer) 10 POC Glucose (mg/dL) 73 Random Glucose 79 Lactic Acid Calcium 7.3 L Phosphorus Magnesium 1.9 Total Bilirubin 1.8 H AST 60 H ALT 35 Alkaline Phosphatase 107 Ammonia Total Protein 7.7 Albumin 3.7 Globulin 4.0 H Albumin/Globulin Ratio 0.9 L Arterial Blood Potassium Stool Occult Blood Blood Type Antibody Screen 04/08/17 04/08/17 04/08/17 13:02 13:51 13:51 WBC RBC Hgb Hct MCV MCH MCHC RDW Plt Count MPV Neut % (Auto) Lymph % (Auto) Hartley % (Auto) Eos % (Auto) Baso % (Auto) Neut # Lymph # Hartley # Eos # Baso # PT 17.2 H INR 1.5 Puncture Site pCO2 pO2 HCO3 ABG pH ABG Total CO2 ABG O2 Saturation ABG Base Excess ABG Hemoglobin ABG Carboxyhemoglobin POC ABG HHb (Measured) ABG Methemoglobin Ruddy Test ABG Potassium A-a O2 Difference Respiratory Index Hgb O2 Saturation Glucose Lactate Liter Flow Vent Mode Mechanical Rate FiO2 Tidal Volume PEEP Crit Value Called To Crit Value Called By Crit Value Read Back Blood Gas Notified Time Sodium Potassium Chloride Carbon Dioxide Anion Gap BUN Creatinine Est GFR ( Amer) Est GFR (Non-Af Amer) POC Glucose (mg/dL) Random Glucose Lactic Acid 1.8 Calcium Phosphorus Magnesium Total Bilirubin AST ALT Alkaline Phosphatase Ammonia 181 H D Total Protein Albumin Globulin Albumin/Globulin Ratio Arterial Blood Potassium Stool Occult Blood Blood Type Antibody Screen 04/08/17 04/08/17 04/08/17 13:51 13:51 16:02 WBC RBC Hgb Hct MCV MCH MCHC RDW Plt Count MPV Neut % (Auto) Lymph % (Auto) Hartley % (Auto) Eos % (Auto) Baso % (Auto) Neut # Lymph # Hartley # Eos # Baso # PT INR Puncture Site Dr. meeks pCO2 31 L pO2 177 H HCO3 31.9 H ABG pH 7.60 H ABG Total CO2 31.4 H ABG O2 Saturation 99.4 H ABG Base Excess 8.9 H ABG Hemoglobin ABG Carboxyhemoglobin POC ABG HHb (Measured) ABG Methemoglobin Ruddy Test Femoral ABG Potassium 4.5 A-a O2 Difference 12.0 Respiratory Index 0.1 Hgb O2 Saturation Glucose 90 Lactate 2.2 H Liter Flow 3.0 Vent Mode Mechanical Rate FiO2 32.0 Tidal Volume PEEP Crit Value Called To Crit Value Called By Crit Value Read Back Blood Gas Notified Time Sodium 145.0 Potassium Chloride 110.0 H Carbon Dioxide Anion Gap BUN Creatinine Est GFR ( Amer) Est GFR (Non-Af Amer) POC Glucose (mg/dL) Random Glucose Lactic Acid Calcium Phosphorus Magnesium Total Bilirubin AST ALT Alkaline Phosphatase Ammonia Total Protein Albumin Globulin Albumin/Globulin Ratio Arterial Blood Potassium 4.5 Stool Occult Blood Positive H Blood Type O POSITIVE Antibody Screen Negative 04/08/17 04/09/17 04/09/17 20:23 05:20 06:30 WBC 6.6 RBC 3.16 L Hgb 9.3 L Hct 29.2 L MCV 92.5 MCH 29.5 MCHC 31.9 L RDW 19.7 H Plt Count 146 MPV 10.5 Neut % (Auto) 79.7 H Lymph % (Auto) 10.3 L Hartley % (Auto) 6.0 Eos % (Auto) 3.0 Baso % (Auto) 1.0 Neut # 5.2 Lymph # 0.7 L Hartley # 0.4 Eos # 0.2 Baso # 0.1 PT INR Puncture Site Rr Rt fem pCO2 26 L 23 L pO2 50 L 436 H HCO3 27.6 28.5 H ABG pH 7.58 H 7.64 H* ABG Total CO2 25.2 25.5 ABG O2 Saturation 92.5 L 100.2 H ABG Base Excess 3.6 H 4.5 H ABG Hemoglobin 9.6 L ABG Carboxyhemoglobin 1.9 H POC ABG HHb (Measured) -0.2 L ABG Methemoglobin 1.2 Ruddy Test Unable Na ABG Potassium 3.7 A-a O2 Difference 345.0 106.0 Respiratory Index 6.9 0.2 Hgb O2 Saturation 97.1 Glucose 77 Lactate 2.8 H Liter Flow Vent Mode Prvc Prvc Mechanical Rate 12 12 FiO2 60.0 80.0 Tidal Volume 450 450 PEEP 5 5 Crit Value Called To Janis hayden /nils Crit Value Called By Gwyn lopez/rt Crit Value Read Back Y Blood Gas Notified Time 615 Sodium 150.0 H Potassium Chloride 116.0 H Carbon Dioxide Anion Gap BUN Creatinine Est GFR ( Amer) Est GFR (Non-Af Amer) POC Glucose (mg/dL) Random Glucose Lactic Acid Calcium Phosphorus Magnesium Total Bilirubin AST ALT Alkaline Phosphatase Ammonia Total Protein Albumin Globulin Albumin/Globulin Ratio Arterial Blood Potassium 3.7 Stool Occult Blood Blood Type Antibody Screen 04/09/17 04/09/17 04/09/17 06:32 06:32 07:12 WBC RBC Hgb Hct MCV MCH MCHC RDW Plt Count MPV Neut % (Auto) Lymph % (Auto) Hartley % (Auto) Eos % (Auto) Baso % (Auto) Neut # Lymph # Hartley # Eos # Baso # PT INR Puncture Site pCO2 pO2 HCO3 ABG pH ABG Total CO2 ABG O2 Saturation ABG Base Excess ABG Hemoglobin ABG Carboxyhemoglobin POC ABG HHb (Measured) ABG Methemoglobin Ruddy Test ABG Potassium A-a O2 Difference Respiratory Index Hgb O2 Saturation Glucose Lactate Liter Flow Vent Mode Mechanical Rate FiO2 Tidal Volume PEEP Crit Value Called To Crit Value Called By Crit Value Read Back Blood Gas Notified Time Sodium 143 Potassium 3.7 Chloride 103 Carbon Dioxide 25 Anion Gap 19 BUN 53 H Creatinine 7.2 H Est GFR ( Amer) 10 Est GFR (Non-Af Amer) 8 POC Glucose (mg/dL) Random Glucose 64 L Lactic Acid 2.3 H Calcium 7.0 L Phosphorus 1.2 L Magnesium 1.8 Total Bilirubin 1.3 AST 39 ALT 31 Alkaline Phosphatase 106 Ammonia 84 H D Total Protein 7.9 Albumin 3.3 L Globulin 4.6 H Albumin/Globulin Ratio 0.7 L Arterial Blood Potassium Stool Occult Blood Blood Type Antibody Screen Assessment & Plan (1) Varices of esophagus determined by endoscopy Assessment and Plan: Continue nadolol. Had EGD and banding. 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 Discontinue NG tube JOHN, as patient has varices. Check NH3 level. Status: Acute
--- NOTE | 2017-04-09 14:40 | CP.CCUPN ---
CCU Subjective - Physician Review Events Since Last Encounter (Free Text): 04/09/17 14:39 still obtunded. CCU Objective - Vital Signs / Intake & Output Vital Signs (Last 4 hours): Vital Signs Temp Pulse Resp BP Pulse Ox 04/09/17 14:24 78 20 98/41 L 95 04/09/17 14:20 78 21 95 04/09/17 14:10 75 19 100 04/09/17 14:00 75 17 96 04/09/17 13:50 75 22 94 L 04/09/17 13:46 77 19 99/31 L 97 04/09/17 13:40 75 19 96 04/09/17 13:30 73 22 99 04/09/17 13:24 74 21 100 04/09/17 13:20 74 21 98 04/09/17 13:10 72 20 99 04/09/17 13:00 76 18 97 04/09/17 12:53 78 26 H 90/37 L 97 04/09/17 12:50 73 22 99 04/09/17 12:40 76 23 100 04/09/17 12:30 77 21 100 04/09/17 12:24 73 20 100 04/09/17 12:20 75 26 H 100 04/09/17 12:10 74 17 99 04/09/17 12:00 98.8 F 74 18 100 04/09/17 11:50 72 18 100 04/09/17 11:40 75 23 100 04/09/17 11:30 75 17 100 04/09/17 11:24 75 18 97/40 L 100 04/09/17 11:20 75 22 100 04/09/17 11:10 74 20 100 04/09/17 11:00 71 16 100 04/09/17 10:50 74 23 100 04/09/17 10:40 74 19 100 Intake and Output (Last 8hrs): Intake & Output 04/08/17 04/09/17 04/09/17 22:59 06:59 14:59 Intake Total 1150 1600 300 Output Total 100 400 0 Balance 1050 1200 300 Weight 100 lb 3.2 oz Intake: Intake, IV Amount 1100 1600 100 Left Hand 1100 1600 100 Oral 0 Tube Feeding 100 Other 50 100 Output: Stool 0 Emesis 100 400 Other: # Bowel Movements 1 1 1 - Physical Exam Head: Positive for: Atraumatic, Normocephalic Pupils: Positive for: PERRL Extroacular Muscles: Positive for: EOMI Mouth: Positive for: Moist Mucous Membranes Neck: Positive for: Normal Range of Motion Respiratory/Chest: Positive for: Clear to Auscultation Cardiovascular: Positive for: Regular Rate and Rhythm Abdomen: Positive for: Normal Bowel Sounds. Negative for: Tenderness Neurological: Negative for: GCS=15, CN II-XII Intact Psychiatric: Negative for: Alert - Medications Active Medications: Active Medications Generic Name Dose Route Start Last Admin Trade Name Freq PRN Reason Stop Dose Admin Epoetin William 10,000 unit 04/12/17 10:00 Procrit IV TTS ROHAN Lactulose 20 gm 04/08/17 20:00 04/09/17 11:43 Enulose NG 20 gm Q8H ROHAN Administration Pantoprazole Sodium 40 mg 04/09/17 10:00 04/09/17 10:41 Protonix Inj IVP 40 mg DAILY ROHAN Administration Rifaximin 550 mg 04/09/17 10:00 04/09/17 10:41 Xifaxan NG 550 mg BID ROHAN Administration - Patient Studies Lab Studies: Lab Studies 04/09/17 04/09/17 04/09/17 Range/Units 07:12 06:32 06:32 WBC (4.8-10.8) K/uL RBC (4.40-5.90) Mil/uL Hgb (12.0-18.0) g/dL Hct (35.0-51.0) % MCV (80.0-94.0) fL MCH (27.0-31.0) pg MCHC (33.0-37.0) g/dL RDW (11.5-14.5) % Plt Count (130-400) K/uL MPV (7.2-11.7) fL Neut % (Auto) (50.0-75.0) % Lymph % (Auto) (20.0-40.0) % Harper % (Auto) (0.0-10.0) % Eos % (Auto) (0.0-4.0) % Baso % (Auto) (0.0-2.0) % Neut # (1.8-7.0) K/uL Lymph # (1.0-4.3) K/uL Harper # (0.0-0.8) K/uL Eos # (0.0-0.7) K/uL Baso # (0.0-0.2) K/uL Puncture Site pCO2 (35-45) mm/Hg pO2 (80-100) mm/Hg HCO3 (21-28) mmol/L ABG pH (7.35-7.45) ABG Total CO2 (22-28) mmol/L ABG O2 Saturation (95-98) % ABG Base Excess (-2.0-3.0) mmol/L ABG Hemoglobin (11.7-17.4) g/dL ABG Carboxyhemoglobin (0.5-1.5) % POC ABG HHb (Measured) (0.0-5.0) % ABG Methemoglobin (0.0-3.0) % Ruddy Test ABG Potassium (3.6-5.2) mmol/L A-a O2 Difference mm/Hg Respiratory Index Hgb O2 Saturation (95.0-98.0) % Sodium 143 (132-148) mmol/l Chloride 103 (98-107) mmol/L Glucose (75-110) mg/dl Lactate (0.7-2.1) mmol/L Liter Flow Vent Mode Mechanical Rate FiO2 % Tidal Volume PEEP Crit Value Called To Crit Value Called By Crit Value Read Back Blood Gas Notified Time Potassium 3.7 (3.6-5.2) mmol/L Carbon Dioxide 25 (22-30) mmol/L Anion Gap 19 (10-20) BUN 53 H (9-20) mg/dL Creatinine 7.2 H (0.8-1.5) mg/dL Est GFR ( Amer) 10 Est GFR (Non-Af Amer) 8 Random Glucose 64 L (75-110) mg/dL Lactic Acid 2.3 H (0.7-2.1) mmol/L Calcium 7.0 L (8.6-10.4) mg/dl Phosphorus 1.2 L (2.5-4.5) mg/dL Magnesium 1.8 (1.6-2.3) mg/dL Total Bilirubin 1.3 (0.2-1.3) mg/dL AST 39 (17-59) U/L ALT 31 (21-72) U/L Alkaline Phosphatase 106 (38-126) U/L Ammonia 84 H D (9-33) umol/L Total Protein 7.9 (6.3-8.3) g/dL Albumin 3.3 L (3.5-5.0) g/dL Globulin 4.6 H (2.2-3.9) gm/dL Albumin/Globulin Ratio 0.7 L (1.0-2.1) Arterial Blood Potassium (3.6-5.2) mmol/L Antibody Screen 04/09/17 04/09/17 04/08/17 Range/Units 06:30 05:20 20:23 WBC 6.6 (4.8-10.8) K/uL RBC 3.16 L (4.40-5.90) Mil/uL Hgb 9.3 L (12.0-18.0) g/dL Hct 29.2 L (35.0-51.0) % MCV 92.5 (80.0-94.0) fL MCH 29.5 (27.0-31.0) pg MCHC 31.9 L (33.0-37.0) g/dL RDW 19.7 H (11.5-14.5) % Plt Count 146 (130-400) K/uL MPV 10.5 (7.2-11.7) fL Neut % (Auto) 79.7 H (50.0-75.0) % Lymph % (Auto) 10.3 L (20.0-40.0) % Harper % (Auto) 6.0 (0.0-10.0) % Eos % (Auto) 3.0 (0.0-4.0) % Baso % (Auto) 1.0 (0.0-2.0) % Neut # 5.2 (1.8-7.0) K/uL Lymph # 0.7 L (1.0-4.3) K/uL Harper # 0.4 (0.0-0.8) K/uL Eos # 0.2 (0.0-0.7) K/uL Baso # 0.1 (0.0-0.2) K/uL Puncture Site Rt fem Rr pCO2 23 L 26 L (35-45) mm/Hg pO2 436 H 50 L (80-100) mm/Hg HCO3 28.5 H 27.6 (21-28) mmol/L ABG pH 7.64 H* 7.58 H (7.35-7.45) ABG Total CO2 25.5 25.2 (22-28) mmol/L ABG O2 Saturation 100.2 H 92.5 L (95-98) % ABG Base Excess 4.5 H 3.6 H (-2.0-3.0) mmol/L ABG Hemoglobin 9.6 L (11.7-17.4) g/dL ABG Carboxyhemoglobin 1.9 H (0.5-1.5) % POC ABG HHb (Measured) -0.2 L (0.0-5.0) % ABG Methemoglobin 1.2 (0.0-3.0) % Ruddy Test Na Unable ABG Potassium 3.7 (3.6-5.2) mmol/L A-a O2 Difference 106.0 345.0 mm/Hg Respiratory Index 0.2 6.9 Hgb O2 Saturation 97.1 (95.0-98.0) % Sodium 150.0 H (132-148) mmol/l Chloride 116.0 H (98-107) mmol/L Glucose 77 (75-110) mg/dl Lactate 2.8 H (0.7-2.1) mmol/L Liter Flow Vent Mode Prvc Prvc Mechanical Rate 12 12 FiO2 80.0 60.0 % Tidal Volume 450 450 PEEP 5 5 Crit Value Called To Janis hayden /rn Crit Value Called By Gwyn lopez/rt Crit Value Read Back Y Blood Gas Notified Time 615 Potassium (3.6-5.2) mmol/L Carbon Dioxide (22-30) mmol/L Anion Gap (10-20) BUN (9-20) mg/dL Creatinine (0.8-1.5) mg/dL Est GFR ( Amer) Est GFR (Non-Af Amer) Random Glucose (75-110) mg/dL Lactic Acid (0.7-2.1) mmol/L Calcium (8.6-10.4) mg/dl Phosphorus (2.5-4.5) mg/dL Magnesium (1.6-2.3) mg/dL Total Bilirubin (0.2-1.3) mg/dL AST (17-59) U/L ALT (21-72) U/L Alkaline Phosphatase (38-126) U/L Ammonia (9-33) umol/L Total Protein (6.3-8.3) g/dL Albumin (3.5-5.0) g/dL Globulin (2.2-3.9) gm/dL Albumin/Globulin Ratio (1.0-2.1) Arterial Blood Potassium 3.7 (3.6-5.2) mmol/L Antibody Screen 04/08/17 04/08/17 Range/Units 16:02 13:51 WBC (4.8-10.8) K/uL RBC (4.40-5.90) Mil/uL Hgb (12.0-18.0) g/dL Hct (35.0-51.0) % MCV (80.0-94.0) fL MCH (27.0-31.0) pg MCHC (33.0-37.0) g/dL RDW (11.5-14.5) % Plt Count (130-400) K/uL MPV (7.2-11.7) fL Neut % (Auto) (50.0-75.0) % Lymph % (Auto) (20.0-40.0) % Harper % (Auto) (0.0-10.0) % Eos % (Auto) (0.0-4.0) % Baso % (Auto) (0.0-2.0) % Neut # (1.8-7.0) K/uL Lymph # (1.0-4.3) K/uL Harper # (0.0-0.8) K/uL Eos # (0.0-0.7) K/uL Baso # (0.0-0.2) K/uL Puncture Site Dr. meeks pCO2 31 L (35-45) mm/Hg pO2 177 H (80-100) mm/Hg HCO3 31.9 H (21-28) mmol/L ABG pH 7.60 H (7.35-7.45) ABG Total CO2 31.4 H (22-28) mmol/L ABG O2 Saturation 99.4 H (95-98) % ABG Base Excess 8.9 H (-2.0-3.0) mmol/L ABG Hemoglobin (11.7-17.4) g/dL ABG Carboxyhemoglobin (0.5-1.5) % POC ABG HHb (Measured) (0.0-5.0) % ABG Methemoglobin (0.0-3.0) % Ruddy Test Femoral ABG Potassium 4.5 (3.6-5.2) mmol/L A-a O2 Difference 12.0 mm/Hg Respiratory Index 0.1 Hgb O2 Saturation (95.0-98.0) % Sodium 145.0 (132-148) mmol/l Chloride 110.0 H (98-107) mmol/L Glucose 90 (75-110) mg/dl Lactate 2.2 H (0.7-2.1) mmol/L Liter Flow 3.0 Vent Mode Mechanical Rate FiO2 32.0 % Tidal Volume PEEP Crit Value Called To Crit Value Called By Crit Value Read Back Blood Gas Notified Time Potassium (3.6-5.2) mmol/L Carbon Dioxide (22-30) mmol/L Anion Gap (10-20) BUN (9-20) mg/dL Creatinine (0.8-1.5) mg/dL Est GFR ( Amer) Est GFR (Non-Af Amer) Random Glucose (75-110) mg/dL Lactic Acid (0.7-2.1) mmol/L Calcium (8.6-10.4) mg/dl Phosphorus (2.5-4.5) mg/dL Magnesium (1.6-2.3) mg/dL Total Bilirubin (0.2-1.3) mg/dL AST (17-59) U/L ALT (21-72) U/L Alkaline Phosphatase (38-126) U/L Ammonia (9-33) umol/L Total Protein (6.3-8.3) g/dL Albumin (3.5-5.0) g/dL Globulin (2.2-3.9) gm/dL Albumin/Globulin Ratio (1.0-2.1) Arterial Blood Potassium 4.5 (3.6-5.2) mmol/L Antibody Screen Negative Laboratory Results - last 24 hr 04/08/17 04/08/17 04/08/17 13:51 16:02 20:23 WBC RBC Hgb Hct MCV MCH MCHC RDW Plt Count MPV Neut % (Auto) Lymph % (Auto) Harper % (Auto) Eos % (Auto) Baso % (Auto) Neut # Lymph # Harper # Eos # Baso # Puncture Site Dr. meeks Rr pCO2 31 L 26 L pO2 177 H 50 L HCO3 31.9 H 27.6 ABG pH 7.60 H 7.58 H ABG Total CO2 31.4 H 25.2 ABG O2 Saturation 99.4 H 92.5 L ABG Base Excess 8.9 H 3.6 H ABG Hemoglobin ABG Carboxyhemoglobin POC ABG HHb (Measured) ABG Methemoglobin Ruddy Test Femoral Unable ABG Potassium 4.5 3.7 A-a O2 Difference 12.0 345.0 Respiratory Index 0.1 6.9 Hgb O2 Saturation Sodium 145.0 150.0 H Chloride 110.0 H 116.0 H Glucose 90 77 Lactate 2.2 H 2.8 H Liter Flow 3.0 Vent Mode Prvc Mechanical Rate 12 FiO2 32.0 60.0 Tidal Volume 450 PEEP 5 Crit Value Called To Crit Value Called By Crit Value Read Back Blood Gas Notified Time Potassium Carbon Dioxide Anion Gap BUN Creatinine Est GFR ( Amer) Est GFR (Non-Af Amer) Random Glucose Lactic Acid Calcium Phosphorus Magnesium Total Bilirubin AST ALT Alkaline Phosphatase Ammonia Total Protein Albumin Globulin Albumin/Globulin Ratio Arterial Blood Potassium 4.5 3.7 Antibody Screen Negative 04/09/17 04/09/17 04/09/17 05:20 06:30 06:32 WBC 6.6 RBC 3.16 L Hgb 9.3 L Hct 29.2 L MCV 92.5 MCH 29.5 MCHC 31.9 L RDW 19.7 H Plt Count 146 MPV 10.5 Neut % (Auto) 79.7 H Lymph % (Auto) 10.3 L Harper % (Auto) 6.0 Eos % (Auto) 3.0 Baso % (Auto) 1.0 Neut # 5.2 Lymph # 0.7 L Harper # 0.4 Eos # 0.2 Baso # 0.1 Puncture Site Rt fem pCO2 23 L pO2 436 H HCO3 28.5 H ABG pH 7.64 H* ABG Total CO2 25.5 ABG O2 Saturation 100.2 H ABG Base Excess 4.5 H ABG Hemoglobin 9.6 L ABG Carboxyhemoglobin 1.9 H POC ABG HHb (Measured) -0.2 L ABG Methemoglobin 1.2 Ruddy Test Na ABG Potassium A-a O2 Difference 106.0 Respiratory Index 0.2 Hgb O2 Saturation 97.1 Sodium 143 Chloride 103 Glucose Lactate Liter Flow Vent Mode Prvc Mechanical Rate 12 FiO2 80.0 Tidal Volume 450 PEEP 5 Crit Value Called To Janis hayden /rn Crit Value Called By Gwyn lopez/rt Crit Value Read Back Y Blood Gas Notified Time 615 Potassium 3.7 Carbon Dioxide 25 Anion Gap 19 BUN 53 H Creatinine 7.2 H Est GFR ( Amer) 10 Est GFR (Non-Af Amer) 8 Random Glucose 64 L Lactic Acid Calcium 7.0 L Phosphorus 1.2 L Magnesium 1.8 Total Bilirubin 1.3 AST 39 ALT 31 Alkaline Phosphatase 106 Ammonia Total Protein 7.9 Albumin 3.3 L Globulin 4.6 H Albumin/Globulin Ratio 0.7 L Arterial Blood Potassium Antibody Screen 04/09/17 04/09/17 06:32 07:12 WBC RBC Hgb Hct MCV MCH MCHC RDW Plt Count MPV Neut % (Auto) Lymph % (Auto) Harper % (Auto) Eos % (Auto) Baso % (Auto) Neut # Lymph # Harper # Eos # Baso # Puncture Site pCO2 pO2 HCO3 ABG pH ABG Total CO2 ABG O2 Saturation ABG Base Excess ABG Hemoglobin ABG Carboxyhemoglobin POC ABG HHb (Measured) ABG Methemoglobin Ruddy Test ABG Potassium A-a O2 Difference Respiratory Index Hgb O2 Saturation Sodium Chloride Glucose Lactate Liter Flow Vent Mode Mechanical Rate FiO2 Tidal Volume PEEP Crit Value Called To Crit Value Called By Crit Value Read Back Blood Gas Notified Time Potassium Carbon Dioxide Anion Gap BUN Creatinine Est GFR ( Amer) Est GFR (Non-Af Amer) Random Glucose Lactic Acid 2.3 H Calcium Phosphorus Magnesium Total Bilirubin AST ALT Alkaline Phosphatase Ammonia 84 H D Total Protein Albumin Globulin Albumin/Globulin Ratio Arterial Blood Potassium Antibody Screen Fingerstick Blood Sugar Results: 73 Review of Systems - Review of Systems Systems not reviewed;Unavailable: Altered Mental Status Assessment/Plan (1) Hepatic encephalopathy Assessment and plan: 46yo M. 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 found obtunded by family. Neuro: still obtunded. hepatic encephalopathy continue rifaximin and lactulose. Pulm: intubated for airway protection, on vent. CV: hemodynamically stable. Albumin during dialysis. Hem: no acute issues Renal: ESRD getting dialysis today. metabolic acidosis, metabolic and respiratory alkalosis. Endo: no acute issues GI: NPO, starting Nepro@20. ID: no acute issues DVT proph - SCD's, no a/c with current GI bleed GI proph - protonix Code status - full code Critical Care Time spent 35 minutes Multi-disciplinary rounds were performed with house staff, nursing, speech therapy, respiratory therapy, pharmacy and nutrition with integrated input from the primary team/attending and other consulting services. The documented time is cumulative and includes review of patient data/exams/labs/chart review and examination of the patient on rounds and throughout the day; time is exclusive of any procedures or teaching time. Current Visit: Yes Status: Acute
[2017-04-09] MEDS ORDERED: Albumin Human 25% (12.5 gm/50 ml) IV PRN (15:04)
[2017-04-09] MEDS ORDERED: Albumin Human 25% (12.5 gm/50 ml) IV ONE (16:30)
[2017-04-09] MEDS ORDERED: Phenylephrine 30 MG in Sodium Chloride 0.9% 250 ML IV PRN (16:39)
--- NOTE | 2017-04-09 18:40 | CP.PCM.PN ---
Subjective - Date & Time of Evaluation Date of Evaluation: 04/09/17 Time of Evaluation: 14:20 - Subjective Subjective: clinically same Objective - Vital Signs/Intake and Output Vital Signs (last 24 hours): Temp Pulse Resp BP Pulse Ox 98.4 F 75 29 H 96/42 L 94 L 04/09/17 17:45 04/09/17 18:03 04/09/17 18:03 04/09/17 18:03 04/09/17 18:03 Intake and Output: 04/09/17 04/09/17 06:59 18:59 Intake Total 2350 618 Output Total 400 400 Balance 1950 218 - Medications Medications: Current Medications Albumin Human (Albumin Human 25% (12.5 Gm/50 Ml)) 12.5 gm IV ONCE PRN PRN Reason: SBP < 90 Last Admin: 04/09/17 15:57 Dose: 12.5 gm Epoetin William (Procrit) 10,000 unit IV TTS [facility] Phenylephrine HCl 30 mg/ (Sodium Chloride) 253 mls @ 10.12 mls/hr IV .Q24H PRN ; Protocol; 20 MCG/MIN PRN Reason: TITRATE PER MD ORDER Last Titration: 04/09/17 17:50 Dose: 150 mcg/min, 75.9 mls/hr Lactulose (Enulose) 20 gm NG Q8H [facility] Last Admin: 04/09/17 11:43 Dose: 20 gm Pantoprazole Sodium (Protonix Inj) 40 mg IVP DAILY [facility] Last Admin: 04/09/17 10:41 Dose: 40 mg Rifaximin (Xifaxan) 550 mg NG BID [facility] Last Admin: 04/09/17 17:14 Dose: 550 mg - Labs Labs: 04/09/17 06:30 04/09/17 06:32 PT 17.2 SECONDS (9.7-12.2) H 04/08/17 13:51 INR 1.5 04/08/17 13:51 - Constitutional Appears: Well - Head Exam Head Exam: ATRAUMATIC, NORMAL INSPECTION, NORMOCEPHALIC - Eye Exam Eye Exam: EOMI, Normal appearance, PERRL Pupil Exam: NORMAL ACCOMODATION, PERRL - ENT Exam ENT Exam: Mucous Membranes Moist, Normal Exam - Neck Exam Neck Exam: Full ROM, Normal Inspection. absent: Lymphadenopathy - Respiratory Exam Respiratory Exam: Clear to Ausculation Bilateral, NORMAL BREATHING PATTERN - Cardiovascular Exam Cardiovascular Exam: REGULAR RHYTHM, +S1, +S2. absent: Murmur - GI/Abdominal Exam GI & Abdominal Exam: Soft, Normal Bowel Sounds. absent: Tenderness - Rectal Exam Rectal Exam: Deferred Assessment and Plan (1) Abdominal pain Status: Acute (2) Abdominal pain Status: Acute (3) Abnormal CT of the abdomen Status: Acute (4) Acute colitis Status: Acute (5) Altered mental status Status: Acute (6) Anemia Status: Acute (7) Anemia due to acute blood loss Status: Acute (8) Chronic hepatitis B Status: Acute (9) Chronic hepatitis B without delta agent without cirrhosis Status: Acute (10) Colitis Status: Acute (11) ESRD (end stage renal disease) on dialysis Status: Acute (12) Esophageal varices with bleeding Status: Acute (13) GI bleed Status: Acute (14) 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 Status: Acute (15) 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 Status: Acute (16) 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 Status: Acute (17) Hepatic encephalopathy Status: Acute (18) Hepatic encephalopathy Status: Acute (19) Hypertension Status: Acute (20) Hypotension Status: Acute (21) Nausea Status: Acute (22) Pancytopenia Status: Acute (23) Renal failure Status: Acute (24) Respiratory failure Status: Acute (25) UGI bleed Status: Acute (26) Varices of esophagus determined by endoscopy Status: Acute (27) Vascular abnormality Status: Acute (28) Vein stenosis Status: Acute (29) Vomiting Status: Acute (30) Chronic hepatitis B with cirrhosis Status: Chronic (31) Chronic kidney disease with end stage renal failure on dialysis Status: Chronic (32) Cirrhosis Status: Chronic (33) GI bleed Status: Resolved - Assessment and Plan (Free Text) Plan: Patient examined. Patient is nonverbal, not responding to any stimuli. Patient is intubated. Laboratory investigation shows a pH of 7.6, lactate of 2.2, potassium of 5.6, ammonia of 181, creatinine of 5.9 and stool occult positive. Chest x-ray was normal. CT scan head was suggestive of generalized atrophy and nonspecific white matter changes. X-ray abdomen was normal Blood culture and nares culture for MRSA is sent. Continue lactulose and rifaximin. Continue human albumin. Continue supportive care.
[2017-04-09] MEDS ORDERED: Phenylephrine 60 MG in Sodium Chloride 0.9% 250 ML IV PRN (20:35)
[2017-04-09] MEDS ORDERED: Sodium Chloride 0.9% 250 ML IV ONE (22:42)
[2017-04-10] MEDS ORDERED: Sodium Chloride 0.9% 1,000 ML IV SCH ×2 (01:15→11:00)
[2017-04-10] MEDS: DOPamine 400mg/250ml D5W 400 MG/250 ML BAG IV PRN ×3 (02:30→17:02)
--- NOTE | 2017-04-10 02:43 | CON ---
DATE: REASON FOR CONSULTATION: Jerky movement of the extremities and diaphragm. 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 The patient was presented to the emergency room, when he was found by the family unresponsive and they called the ambulance and the patient was brought to the emergency room. The patient gradually became responsive and the patient is currently in ICU. Because of myoclonic jerks, neuro consult was requested. As per family, when his ammonia level goes up, the patient is becoming lethargic and unresponsive. PAST MEDICAL HISTORY: As mentioned above. PAST SURGICAL HISTORY: Failed right arm AV prep, failed renal transplant, lumbar hemodialysis catheter IVC. SOCIAL HISTORY: Lives with the family. No known smoking or illicit drug or alcohol abuse. REVIEW OF SYSTEMS: As per H and P and ER note reviewed. PHYSICAL EXAMINATION VITAL SIGNS: Blood pressure 82/32; pulse 86; respirations 25; temperature afebrile, 99.5. MENTAL STATE: The patient is comatose. No response to verbal commands. No spontaneous blink. CRANIAL NERVES: Pupils 2-mm sluggishly reactive, no gaze preference. Subicteric sclerae bilaterally. No blink to threat or loud noise. No response to painful stimuli and no grimacing. MOTOR: Flaccid upper and lower extremities. Deep tendon reflexes 1 to 2 in upper and lower extremities, absent in the ankles. Plantars are mute. No response to painful stimulus, slightly moves his toes in response to noxious stimuli of the lower extremities distally. LABORATORY DATA: Red blood cells 3.31, hemoglobin 9.5, hematocrit 30.8, MCV 93. Sodium 145, potassium 5.6, chloride 102, carbon dioxide 33, anion gap 16, BUN 48, creatinine 5.9. Sedimentation rate 13, lactic acid 1.8, calcium 7.3. Ammonia level initially at admission was 180, decreased to 110. IMPRESSION: 1. Hepatic encephalopathy secondary to probably liver cirrhosis and hepatitis. 2. Myoclonic jerks secondary to metabolic etiology, probably combination of hepatic and renal, diaphragm myoclonic and extremities jerks are secondary to the metabolic etiology. At this point, it subsided after ammonia level decreased. I would not consider any medication. If the myoclonic jerks increase, Keppra can be tried 250 mg or 500 mg twice day. Because of the renal insufficiency and hepatic insufficiency, I would not go with the high doses. Neuro-jaramillo, the patient needs EEG to rule out subclinical seizures. Thank you for the consultation and if needed Dr. Crenshaw will follow up with you. Morales Mora MD MTDD
[2017-04-10 02:46] LABS: DRAW SITE VBG; VENOUS BLOOD GAS BASE EXCESS -5.5 mmol/L (0.0-2.0); VENOUS BLOOD GAS PCO2 42 mmHg (40-60)
[2017-04-10] MEDS ORDERED: Sodium Bicarbonate (8.4%) 50 Meq Syringe IVP ONE (02:54)
[2017-04-10] MEDS ORDERED: EPINEPHrine- 1 MG in Sodium Chloride 0.9% 250 ML IV PRN (03:03)
[2017-04-10] MEDS ORDERED: Sodium Chloride 0.9% 500 ML IV ONE (04:28)
[2017-04-10 04:33] LABS: ABG ALLEN TEST POS; ABG MECHANICAL RATE 12; ARTERIAL BLOOD GAS MODE PRVC; ATERIAL BLOOD GAS PEEP 5; CARBOXYHEMOGLOBIN 1.9 % (0.5-1.5); DRAW SITE RR
[2017-04-10] MEDS: EPINEPHRINE IV PRN ×5 (06:00→21:01)
[2017-04-10] MEDS: SODIUM CHLORIDE 0.9% IV PRN ×5 (06:00→21:01)
[2017-04-10 07:05] LABS: EOS # 0.1 K/uL (0.0-0.7); EOS % 3.1 % (0.0-4.0); HEMATOCRIT 24.7 % (35.0-51.0); LYMPH # 0.3 K/uL (1.0-4.3); LYMPH % 16.9 % (20.0-40.0); MEAN CELL VOLUME 95.7 fL (80.0-94.0); MEAN CORPUSCULAR HEMOGLOBIN 29.6 pg (27.0-31.0); MEAN PLATELET VOLUME 8.8 fL (7.2-11.7); MONO # 0.1 K/uL (0.0-0.8); MONO % 7.5 % (0.0-10.0); NRBC % 11.8 % (0.0-2.0); RED CELL DISTRIBUTION WIDTH 20.5 % (11.5-14.5)
[2017-04-10 07:07] LABS: PLATELET COUNT 25 K/uL (130-400); WHITE BLOOD COUNT 1.9 K/uL (4.8-10.8)
[2017-04-10] MEDS ORDERED: Dextrose 50% SYRINGE Inj (50 ml) IV STA ×2 (08:31→10:47)
[2017-04-10] MEDS: Dextrose 50% VIAL Inj (50 ml) IV ONE ×2 (08:39)
[2017-04-10] MEDS: Dextrose 5%/0.9% NS 1,000 ML IV SCH ×2 (08:44→17:41)
[2017-04-10 08:56] LABS: ALB/GLOB RATIO 0.7 (1.0-2.1); ALKALINE PHOSPHATASE 86 U/L (38-126); ALT/SGPT 205 U/L (21-72); AST/SGOT 1005 U/L (17-59); BILIRUBIN,TOTAL 2.5 mg/dL (0.2-1.3); BLOOD UREA NITROGEN 35 mg/dL (9-20); CALCIUM 5.9 mg/dl (8.6-10.4); CARBON DIOXIDE 24 mmol/L (22-30); CHLORIDE 106 mmol/L (98-107); GFR AFRICAN-AMERICAN 12; GLUCOSE,RANDOM < 20 mg/dL (75-110); MAGNESIUM 1.7 mg/dL (1.6-2.3); POTASSIUM 4.5 mmol/L (3.6-5.2); SODIUM 143 mmol/L (132-148); TOTAL PROTEIN 6.5 g/dL (6.3-8.3)
[2017-04-10] MEDS: Piperacill/Tazo 3.375gm in Dex 3.375 GM/50 ML BAG IVPB SCH ×2 (09:25→17:01)
--- NOTE | 2017-04-10 09:33 | CP.PCM.PN ---
Subjective - Date & Time of Evaluation Date of Evaluation: 04/10/17 Time of Evaluation: 09:15 - Subjective Subjective: Covering DR Ferrera. F/U cirrhosis, hep encephalopathy. When I came in now to see pt, I was told that he became hypotensive aroung HD. Had some vomiting offeeding- stopped NG lactulose. Pt has been hypotensive on pressors. NO RB. No melena. NG tube shows bile and coffee tinged. No report of hemoptysis, hematuria, SZ, abdom pain CP. Objective - Vital Signs/Intake and Output Vital Signs (last 24 hours): Temp Pulse Resp BP Pulse Ox 98.2 F 93 H L 98 04/10/17 04:00 04/10/17 07:59 04/10/17 07:59 04/10/17 07:59 04/10/17 07:59 Intake and Output: 04/10/17 04/10/17 06:59 18:59 Intake Total 3254.7 376.3 Output Total 350 Balance 2904.7 376.3 - Medications Medications: Current Medications Albumin Human (Albumin Human 25% (12.5 Gm/50 Ml)) 12.5 gm IV ONCE PRN PRN Reason: SBP < 90 Last Admin: 04/09/17 15:57 Dose: 12.5 gm Epoetin William (Procrit) 10,000 unit IV TTS [facility] Norepinephrine Bitartrate 8 mg (/ Sodium Chloride) 258 mls @ 7.74 mls/hr IV .Q24H PRN; Protocol; 4 MCG/MIN PRN Reason: TITRATE PER MD ORDER Last Admin: 04/10/17 07:59 Dose: 19.37 mcg/min, 37.5 mls/hr Dopamine HCl/Dextrose (Dopamine 400mg/250ml D5w) 400 mg in 250 mls @ 34.121 mls /hr IV .Q7H20M PRN; Protocol; 20 MCG/KG/MIN PRN Reason: TITRATE PER MD ORDER Last Admin: 04/10/17 02:30 Dose: 20 mcg/kg/min, 34.121 mls/hr Epinephrine HCl 2 mg/ Sodium (Chloride) 252 mls @ 7.56 mls/hr IV .Q24H PRN; Protocol; 1 MCG/MIN PRN Reason: TITRATE PER MD ORDER Last Admin: 04/10/17 06:00 Dose: 10 mcg/min, 75.6 mls/hr Piperacillin Sod/Tazobactam Sod (Zosyn 3.375 Gm Iv Premix) 3.375 gm in 50 mls @ 100 mls/hr IVPB Q8H [facility] Last Admin: 04/10/17 09:25 Dose: 100 mls/hr Vancomycin HCl 1 gm/ Sodium (Chloride) 250 mls @ 166.7 mls/hr IVPB ONCE ONE Stop: 04/10/17 10:29 Last Admin: 04/10/17 09:24 Dose: 166.7 mls/hr Dextrose/Sodium Chloride (Dextrose 5%/0.9% Ns 1000 Ml) 1,000 mls @ 100 mls/hr IV .Q10H [facility] Last Admin: 04/10/17 08:44 Dose: 100 mls/hr Lactulose (Enulose) 20 gm NG Q8H [facility] Last Admin: 04/10/17 04:06 Dose: Not Given Pantoprazole Sodium (Protonix Inj) 40 mg IVP DAILY [facility] Last Admin: 04/10/17 09:25 Dose: 40 mg Rifaximin (Xifaxan) 550 mg NG BID [facility] Last Admin: 04/10/17 09:25 Dose: 550 mg - Labs Labs: 04/10/17 06:50 04/10/17 06:50 PT 17.2 SECONDS (9.7-12.2) H 04/08/17 13:51 INR 1.5 04/08/17 13:51 - Constitutional Appears: Chronically Ill - Respiratory Exam Respiratory Exam: Rhonchi - Cardiovascular Exam Cardiovascular Exam: Tachycardia - GI/Abdominal Exam GI & Abdominal Exam: Normal Bowel Sounds Additional comments: protuberant - Extremities Exam Extremities Exam: Pedal Edema - Neurological Exam Neurological Exam: absent: Alert, Awake, Oriented x3 Assessment and Plan (1) Varices of esophagus determined by endoscopy Status: Acute (2) 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 Doubt severe GI bleed- no melena. No hematemesis Status: Acute (5) Chronic hepatitis B Status: Acute (6) ESRD (end stage renal disease) on dialysis Status: Acute (7) Hepatic encephalopathy Assessment & Plan: IF can NOT take p.o. lactulose, then give RECTAL lactulose ENEMAS. Status: Acute (8) Pancytopenia Status: Acute (9) Hypotension Assessment & Plan: On pressors. Status: Acute (10) Respiratory failure Status: Acute - Assessment and Plan (Free Text) Plan: PLAN: Protonix IV to BID Lactulose- to enemas if can not take po/NG KUB Consider octreotide if has active Upper GI bleed. Check CBC, PT/INR/ NH3/chems Consider Hematology consult
[2017-04-10] MEDS ORDERED: Dextrose 50% VIAL Inj (50 ml) IV ONE (10:04)
[2017-04-10 10:13] LABS: BASOPHIL 1 % (0-2); EOSINOPHIL 3 % (0-4); METAMYELOCYTE 2 % (0-0); MYELOCYTE 2 % (0-0); NEUTROPHIL 31 % (50-75); NUCLEATED RED BLOOD CELL 18 % (0-0); REACTIVE LYMPHOCYTES 1 % (0-0); TOTAL CELLS COUNTED 100
[2017-04-10 10:15] LABS: LARGE PLATELETS PRESENT
--- NOTE | 2017-04-10 11:10 | RAD ---
HISTORY: intubated COMPARISON: Portable chest 04/09/2017. FINDINGS: LUNGS: Reticular changes are diminished in the right base with linear atelectasis identified in the right base at this time. No left-sided infiltrate identified. Endotracheal tube and nasogastric tube are unchanged in position as well as left internal jugular central venous line. Tunneled central venous dialysis catheter is again identified from below. PLEURA: No significant pleural effusion identified, no pneumothorax apparent. CARDIOVASCULAR: Stable cardiac silhouette. External pacemaker identified placed. OSSEOUS STRUCTURES: No significant abnormalities. VISUALIZED UPPER ABDOMEN: Normal. OTHER FINDINGS: None. IMPRESSION: External pacer and now identified placed. Linear atelectasis identified in the right base with reticular markings diminished at the right base. No interval infiltrate pleural effusion or pneumothorax.
--- NOTE | 2017-04-10 11:24 | RAD ---
HISTORY: abdom distention COMPARISON: Abdomen KUB 04/08/2017. FINDINGS: BOWEL: A nonobstructive bowel gas pattern is appreciated with slight increasing gas seen at the distal large bowel. Postop changes in the right central flank with right central venous catheter again seen tunneled toward the right heart. BONES: Normal. OTHER FINDINGS: None. IMPRESSION: Nonobstructive bowel gas pattern appreciated. Prominent right center venous dialysis catheter a again identified.
[2017-04-10 12:28] VITALS: O2SAT 100
[2017-04-10] MEDS ORDERED: Octreotide 1,250 MCG in Dextrose 5% In Water 250 ML SC SCH (13:00)
[2017-04-10] MEDS ORDERED: Octreotide 1,250 MCG in Dextrose 5% In Water 250 ML IV SCH (13:15)
[2017-04-10 13:31] LABS: INR 7.2
--- NOTE | 2017-04-10 13:34 | CP.PCM.CON ---
History of Present Illness - History of Present Illness History of Present Illness: ID conmsult requested by Hector Mcdonough for this 46 yo male with possible sepsis, hypotension, GI bleed in setting of CKD and cirrhosis 46 year old male with a past medical history of chronic Hep B, ESRD on HD TTS ( patient has lumbar HD cath to IVC) and failed renal transplant, presenting to the ED today after the patient was found unresponsive by family and they decided to call ambulance. According to ED, the family stated that the patient behaves this way when his ammonia levels are elevated. There is no family at bedside at time of examination. ROS unattainable as patient is non-responsive. Reportedly had melena PMH: chronic Hep B, ESRD on HD TTS, failed renal tranplant; failed PD due to peritonitis; central venous stenosis, HTN PSH: IVC dialysis catheter insertion and multiple replacements, failed right arm AV graft, failed renal transplant, PD cath placxement and removal Family: unknown; no CKD Social: lives with family hep B due to blood transfusion in 1984, denies smoking , alcohol or illicit drugs All: NKDA Review of Systems - Review of Systems Systems not reviewed;Unavailable: Altered Mental Status - Constitutional Constitutional: As Per HPI - EENT Eyes: absent: As Per HPI, Blind Spots, Blurred Vision, Change in Vision, Decreased Night Vision, Diplopia, Discharge, Dry Eye, Exophthalmos, Floaters, Irritation, Itchy Eyes, Loss of Peripheral Vision, Pain, Photophobia, Requires Corrective Lenses, Sees Flashes, Spots in Vision, Tunnel Vision, Other Visual Disturbances, Loss of Vision, Other Ears: absent: As Per HPI, Decreased Hearing, Ear Discharge, Ear Pain, Tinnitus, Abnormal Hearing, Disequilibrium, Dizziness, Other Nose/Mouth/Throat: absent: As Per HPI, Epistaxis, Nasal Congestion, Nasal Discharge, Nasal Obstruction, Nasal Trauma, Nose Pain, Post Nasal Drip, Sinus Pain, Sinus Pressure, Bleeding Gums, Change in Voice, Dental Pain, Dry Mouth, Dysphagia, Halitosis, Hoarsness, Lip Swelling, Mouth Lesions, Mouth Pain, Odynophagia, Sore Throat, Throat Swelling, Tongue Swelling, Facial Pain, Neck Pain, Neck Mass, Other - Cardiovascular Cardiovascular: absent: As Per HPI, Acrocyanosis, Chest Pain, Chest Pain at Rest , Chest Pain with Activity, Claudication, Diaphoresis, Dyspnea, Dyspnea on Exertion, Edema, Irregular Heart Rhythm, Pain Radiating to Arm/Neck/Jaw, Leg Edema, Leg Ulcers, Lightheadedness, Orthopnea, Palpitations, Paroxysmal Nocturnal Dyspnea, Pedal Edema, Radiating Pain, Rapid Heart Rate, Slow Heart Rate, Syncope, Other - Respiratory Respiratory: absent: As Per HPI, Cough, Dyspnea, Hemoptysis, Dyspnea on Exertion , Wheezing, Snoring, Stridor, Pain on Inspiration, Chest Congestion, Excessive Mucous Production, Change in Mucous Color, Pain with Coughing, Other - Gastrointestinal Gastrointestinal: As Per HPI - Genitourinary Genitourinary: As Per HPI - Musculoskeletal Musculoskeletal: absent: As Per HPI, Abnormal Gait, Arthralgias, Atrophy, Back Pain, Deformity, Joint Swelling, Limited Range of Motion, Loss of Height, Muscle Cramps, Muscle Weakness, Myalgias, Neck Pain, Numbness, Radiating Pain into Limb, Stiffness, Tingling, Other - Integumentary Integumentary: absent: As Per HPI, Acne, Alopecia, Bleeding Lesions, Change in Hair, Change in Nails, Change in Pigmentation, Changing Lesions, Dry Skin, Erythema, Furuncle, Hirsutism, Lesions, New Lesions, Non-Healing Lesions, Photosensitivity, Pruritus, Rash, Skin Pain, Skin Ulcer, Sores, Striae, Swelling , Unusual Bruising, Wounds, Jaundice, Other - Neurological Neurological: As Per HPI - Psychiatric Psychiatric: absent: As Per HPI, Abnormal Sleep Pattern, Anhedonia, Anxiety, Auditory Hallucinations, Behavioral Changes, Change in Appetite, Change in Libido, Confusion, Depression, Difficulty Concentrating, Hallucinations, Homicidal Ideation, Hopelessness, Irritability, Memory Loss, Mood Swings, Panic Attacks, Paranoia, Suicidal Ideation, Visual Hallucinations, Tactile Hallucinations, Other - Endocrine Endocrine: absent: As Per HPI, Change in Body Appearance, Change in Libido, Cold Intolorance, Deepening of Voice, Excessive Sweating, Fatigue, Flushing, Heat Intolorance, Increase in Ring/Shoe/Hat Size, Palpitations, Polydipsia, Polyphagia, Polyuria, Other - Hematologic/Lymphatic Hematologic: absent: As Per HPI, Easy Bleeding, Easy Bruising, Lymphadenopathy, Other Past Patient History - Infectious Disease Hx of Infectious Diseases: None - Past Medical History & Family History Past Medical History?: Yes - Past Social History Smoking Status: Never Smoked - CARDIAC Hx Hypertension: Yes - PULMONARY Hx Respiratory Disorders: No - NEUROLOGICAL Hx Paralysis: No - HEENT Hx HEENT Problems: Yes Hx Glaucoma: Yes - RENAL Hx Chronic Kidney Disease: Yes Hx Kidney Stones: No - ENDOCRINE/METABOLIC Hx Endocrine Disorders: No - HEMATOLOGICAL/ONCOLOGICAL Hx Blood Transfusions: Yes Hx Blood Transfusion Reaction: No Hx Hepatitis B: Yes - INTEGUMENTARY Hx Dermatological Problems: No - MUSCULOSKELETAL/RHEUMATOLOGICAL Hx Musculoskeletal Disorders: No Hx Falls: No - GASTROINTESTINAL Hx Gastritis: Yes - GENITOURINARY/GYNECOLOGICAL Hx Genitourinary Disorders: No - PSYCHIATRIC Hx Substance Use: No - SURGICAL HISTORY Hx Surgeries: Yes - ANESTHESIA Hx Anesthesia: Yes Hx Anesthesia Reactions: No Hx Malignant Hyperthermia: No Meds Allergies/Adverse Reactions: Allergies Allergy/AdvReac Type Severity Reaction Status Date / Time No Known Allergies Allergy Verified 04/08/17 12:11 - Medications Medications: Current Medications Albumin Human (Albumin Human 25% (12.5 Gm/50 Ml)) 12.5 gm IV ONCE PRN PRN Reason: SBP < 90 Last Admin: 04/09/17 15:57 Dose: 12.5 gm Epoetin William (Procrit) 10,000 unit IV TTS ROHAN Hydrocortisone Sodium Succinate (Solu-Cortef) 100 mg IV Q8H ROHAN Last Admin: 04/10/17 10:59 Dose: 100 mg Norepinephrine Bitartrate 8 mg (/ Sodium Chloride) 258 mls @ 7.74 mls/hr IV .Q24H PRN; Protocol; 4 MCG/MIN PRN Reason: TITRATE PER MD ORDER Last Admin: 04/10/17 07:59 Dose: 19.37 mcg/min, 37.5 mls/hr Dopamine HCl/Dextrose (Dopamine 400mg/250ml D5w) 400 mg in 250 mls @ 34.121 mls /hr IV .Q7H20M PRN; Protocol; 20 MCG/KG/MIN PRN Reason: TITRATE PER MD ORDER Last Admin: 04/10/17 09:53 Dose: 20 mcg/kg/min, 34.121 mls/hr Epinephrine HCl 2 mg/ Sodium (Chloride) 252 mls @ 7.56 mls/hr IV .Q24H PRN; Protocol; 1 MCG/MIN PRN Reason: TITRATE PER MD ORDER Last Admin: 04/10/17 09:50 Dose: 10 mcg/min, 75.6 mls/hr Piperacillin Sod/Tazobactam Sod (Zosyn 3.375 Gm Iv Premix) 3.375 gm in 50 mls @ 100 mls/hr IVPB Q8H ROHAN Last Admin: 04/10/17 09:25 Dose: 100 mls/hr Dextrose/Sodium Chloride (Dextrose 5%/0.9% Ns 1000 Ml) 1,000 mls @ 100 mls/hr IV .Q10H ROHAN Last Admin: 04/10/17 08:44 Dose: 100 mls/hr Octreotide Acetate 1,250 mcg/ (Dextrose) 252.5 mls @ 5.05 mls/hr IV .Q24H ROHAN; 25 MCG/HR PRN Reason: Protocol Pantoprazole Sodium (Protonix Inj) 40 mg IVP Q12H ROHAN Rifaximin (Xifaxan) 550 mg NG BID ROHAN Last Admin: 04/10/17 09:25 Dose: 550 mg Physical Exam - Constitutional Appears: Chronically Ill Additional comments: sedated on vent - Head Exam Head Exam: ATRAUMATIC, NORMOCEPHALIC - Eye Exam Eye Exam: EOMI. absent: Scleral icterus - ENT Exam ENT Exam: Mucous Membranes Dry - Neck Exam Neck exam: Negative for: Lymphadenopathy - Respiratory Exam Respiratory Exam: Decreased Breath Sounds, Rhonchi - Cardiovascular Exam Cardiovascular Exam: REGULAR RHYTHM, +S1, +S2 - GI/Abdominal Exam GI & Abdominal Exam: Diminished Bowel Sounds, Distended. absent: Rigid - Rectal Exam Rectal Exam: Deferred - Exam Exam: NORMAL INSPECTION - Extremities Exam Extremities exam: Positive for: pedal pulses present. Negative for: calf tenderness, pedal edema, tenderness - Back Exam Back exam: absent: CVA tenderness (L), CVA tenderness (R) - Neurological Exam Neurological exam: Altered - Psychiatric Exam Psychiatric exam: Depressed - Skin Skin Exam: Dry Results - Vital Signs Recent Vital Signs: Last Vital Signs Temp 99.3 F 04/10/17 13:06 Pulse 96 H 04/10/17 13:06 Resp 20 04/10/17 13:06 BP 152/61 H 04/10/17 13:06 Pulse Ox 100 04/10/17 12:18 - Labs Result Diagrams: 04/10/17 06:50 04/10/17 06:50 Labs: Laboratory Results - last 24 hr 04/10/17 04/10/17 04/10/17 02:40 04:25 06:50 WBC 1.9 L* D RBC 2.58 L Hgb 7.6 L Hct 24.7 L MCV 95.7 H D MCH 29.6 MCHC 31.0 L RDW 20.5 H Plt Count 25 L* D MPV 8.8 Neut % (Auto) 71.5 Lymph % (Auto) 16.9 L [place] % (Auto) 7.5 Eos % (Auto) 3.1 Baso % (Auto) 1.0 Neut # 1.4 L Lymph # 0.3 L [place] # 0.1 Eos # 0.1 Baso # 0.0 Neutrophils % (Manual) 31 L Band Neutrophils % 36 H* Lymphocytes % (Manual) 15 L Reactive Lymphs % 1 H Monocytes % (Manual) 9 Eosinophils % (Manual) 3 Basophils % (Manual) 1 Metamyelocytes % 2 H Myelocytes % 2 H Nucleated RBC % 18 H Platelet Estimate Markedly decreased L Large Platelets Present Hypochromasia (manual) Slight Poikilocytosis (manual Slight Basophilic Stippling Slight Anisocytosis (manual) Moderate Ovalocytes Slight PT INR APTT Puncture Site Vbg Rr pCO2 26 L pO2 24 L 137 H HCO3 20.5 L ABG pH 7.44 ABG Total CO2 18.5 L ABG O2 Saturation 100.0 H ABG Base Excess -5.7 L ABG Hemoglobin 7.8 L ABG Carboxyhemoglobin 1.9 H POC ABG HHb (Measured) 0.0 ABG Methemoglobin 1.0 Ruddy Test Na Pos VBG pH 7.30 L VBG pCO2 42 VBG HCO3 18.9 VBG O2 Sat (Calc) 39.0 L VBG Base Excess -5.5 L A-a O2 Difference 116.0 Respiratory Index 0.8 Hgb O2 Saturation 97.0 Vent Mode Prvc Mechanical Rate 12 FiO2 40.0 Tidal Volume 450 PEEP 5 Sodium Potassium Chloride Carbon Dioxide Anion Gap BUN Creatinine Est GFR ( Amer) Est GFR (Non-Af Amer) POC Glucose (mg/dL) Random Glucose Calcium Phosphorus Magnesium Total Bilirubin AST ALT Alkaline Phosphatase Ammonia Total Protein Albumin Globulin Albumin/Globulin Ratio Blood Type Antibody Screen 04/10/17 04/10/17 04/10/17 06:50 06:50 08:15 WBC RBC Hgb Hct MCV MCH MCHC RDW Plt Count MPV Neut % (Auto) Lymph % (Auto) [place] % (Auto) Eos % (Auto) Baso % (Auto) Neut # Lymph # [place] # Eos # Baso # Neutrophils % (Manual) Band Neutrophils % Lymphocytes % (Manual) Reactive Lymphs % Monocytes % (Manual) Eosinophils % (Manual) Basophils % (Manual) Metamyelocytes % Myelocytes % Nucleated RBC % Platelet Estimate Large Platelets Hypochromasia (manual) Poikilocytosis (manual Basophilic Stippling Anisocytosis (manual) Ovalocytes PT INR APTT Puncture Site pCO2 pO2 HCO3 ABG pH ABG Total CO2 ABG O2 Saturation ABG Base Excess ABG Hemoglobin ABG Carboxyhemoglobin POC ABG HHb (Measured) ABG Methemoglobin Ruddy Test VBG pH VBG pCO2 VBG HCO3 VBG O2 Sat (Calc) VBG Base Excess A-a O2 Difference Respiratory Index Hgb O2 Saturation Vent Mode Mechanical Rate FiO2 Tidal Volume PEEP Sodium 143 Potassium 4.5 Chloride 106 Carbon Dioxide 24 Anion Gap 18 BUN 35 H Creatinine 6.3 H Est GFR ( Amer) 12 Est GFR (Non-Af Amer) 10 POC Glucose (mg/dL) Random Glucose < 20 L* D Calcium 5.9 L* Phosphorus 5.0 H Magnesium 1.7 Total Bilirubin 2.5 H AST 1005 H ALT 205 H D Alkaline Phosphatase 86 Ammonia 390 H D Total Protein 6.5 Albumin 2.7 L Globulin 3.8 Albumin/Globulin Ratio 0.7 L Blood Type O POSITIVE Antibody Screen Negative 04/10/17 04/10/17 04/10/17 08:28 10:01 12:57 WBC RBC Hgb Hct MCV MCH MCHC RDW Plt Count MPV Neut % (Auto) Lymph % (Auto) [place] % (Auto) Eos % (Auto) Baso % (Auto) Neut # Lymph # [place] # Eos # Baso # Neutrophils % (Manual) Band Neutrophils % Lymphocytes % (Manual) Reactive Lymphs % Monocytes % (Manual) Eosinophils % (Manual) Basophils % (Manual) Metamyelocytes % Myelocytes % Nucleated RBC % Platelet Estimate Large Platelets Hypochromasia (manual) Poikilocytosis (manual Basophilic Stippling Anisocytosis (manual) Ovalocytes PT 87.8 H* D INR 7.2 D APTT 62 H Puncture Site pCO2 pO2 HCO3 ABG pH ABG Total CO2 ABG O2 Saturation ABG Base Excess ABG Hemoglobin ABG Carboxyhemoglobin POC ABG HHb (Measured) ABG Methemoglobin Ruddy Test VBG pH VBG pCO2 VBG HCO3 VBG O2 Sat (Calc) VBG Base Excess A-a O2 Difference Respiratory Index Hgb O2 Saturation Vent Mode Mechanical Rate FiO2 Tidal Volume PEEP Sodium Potassium Chloride Carbon Dioxide Anion Gap BUN Creatinine Est GFR ( Amer) Est GFR (Non-Af Amer) POC Glucose (mg/dL) < 20 L* 58 L Random Glucose Calcium Phosphorus Magnesium Total Bilirubin AST ALT Alkaline Phosphatase Ammonia Total Protein Albumin Globulin Albumin/Globulin Ratio Blood Type Antibody Screen Assessment & Plan (1) 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 Status: Acute (2) 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 Status: Acute (3) Hepatic encephalopathy Status: Acute (4) Hypotension Status: Acute (5) Pancytopenia Status: Acute (6) Renal failure Status: Acute (7) Respiratory failure Status: Acute (8) Varices of esophagus determined by endoscopy Status: Acute (9) Abdominal pain Status: Acute (10) ESRD (end stage renal disease) on dialysis Status: Acute (11) Esophageal varices with bleeding Status: Acute (12) Hepatic encephalopathy Status: Acute - Assessment and Plan (Free Text) Plan: poor prognosis cont empiric IV antibiotics poor prognosis from outset
[2017-04-10] MEDS ORDERED: Gentamicin 160 MG in Sodium Chloride 0.9% 100 ML IVPB ONE (13:38)
[2017-04-10] MEDS ORDERED: ePHEDrine 50 mg/ml Inj ONE (14:43)
[2017-04-10] MEDS ORDERED: Midazolam 2 MG/2 ML VIAL ONE (14:43)
[2017-04-10] MEDS ORDERED: Phenylephrine 10 mg/ml Inj ONE (14:44)
[2017-04-10] MEDS ORDERED: Rocuronium 10 mg/ml (5 ml) ONE (14:44)
--- NOTE | 2017-04-10 14:49 | CP.PCM.PN ---
Subjective - Date & Time of Evaluation Date of Evaluation: 04/10/17 Time of Evaluation: 13:45 - Subjective Subjective: Pt had bleeding. BRBPR in NG tube. ++ melena. Transfused PLTs and RBC. Hypotensive. IMP: UGIB- consider varices, gastropathy. P- pRBC, PLTs, PPI, [id number], erythromycin, EGD. I discussed this with laundry sorter and sister and mother. Objective - Vital Signs/Intake and Output Vital Signs (last 24 hours): Temp Pulse Resp BP Pulse Ox 99.3 F 89 17 143/77 100 04/10/17 14:37 04/10/17 14:37 04/10/17 14:37 04/10/17 14:37 04/10/17 13:32 Intake and Output: 04/10/17 04/10/17 06:59 18:59 Intake Total 3254.7 3186.1 Output Total 350 900 Balance 2904.7 2286.1 - Medications Medications: Current Medications Albumin Human (Albumin Human 25% (12.5 Gm/50 Ml)) 12.5 gm IV ONCE PRN PRN Reason: SBP < 90 Last Admin: 04/09/17 15:57 Dose: 12.5 gm Epoetin William (Procrit) 10,000 unit IV TTS ROHAN Hydrocortisone Sodium Succinate (Solu-Cortef) 100 mg IV Q8H ROHAN Last Admin: 04/10/17 10:59 Dose: 100 mg Norepinephrine Bitartrate 8 mg (/ Sodium Chloride) 258 mls @ 7.74 mls/hr IV .Q24H PRN; Protocol; 4 MCG/MIN PRN Reason: TITRATE PER MD ORDER Last Admin: 04/10/17 07:59 Dose: 19.37 mcg/min, 37.5 mls/hr Dopamine HCl/Dextrose (Dopamine 400mg/250ml D5w) 400 mg in 250 mls @ 34.121 mls /hr IV .Q7H20M PRN; Protocol; 20 MCG/KG/MIN PRN Reason: TITRATE PER MD ORDER Last Admin: 04/10/17 09:53 Dose: 20 mcg/kg/min, 34.121 mls/hr Epinephrine HCl 2 mg/ Sodium (Chloride) 252 mls @ 7.56 mls/hr IV .Q24H PRN; Protocol; 1 MCG/MIN PRN Reason: TITRATE PER MD ORDER Last Admin: 04/10/17 13:48 Dose: 10 mcg/min, 75.6 mls/hr Piperacillin Sod/Tazobactam Sod (Zosyn 3.375 Gm Iv Premix) 3.375 gm in 50 mls @ 100 mls/hr IVPB Q8H ROHAN Last Admin: 04/10/17 09:25 Dose: 100 mls/hr Dextrose/Sodium Chloride (Dextrose 5%/0.9% Ns 1000 Ml) 1,000 mls @ 100 mls/hr IV .Q10H ROHAN Last Admin: 04/10/17 08:44 Dose: 100 mls/hr Octreotide Acetate 1,250 mcg/ (Dextrose) 252.5 mls @ 5.05 mls/hr IV .Q24H ROHAN; 25 MCG/HR PRN Reason: Protocol Last Admin: 04/10/17 13:49 Dose: 5.05 mls/hr Pantoprazole Sodium (Protonix Inj) 40 mg IVP Q12H ROHAN Last Admin: 04/10/17 13:52 Dose: 40 mg Rifaximin (Xifaxan) 550 mg NG BID ROHAN Last Admin: 04/10/17 09:25 Dose: 550 mg - Labs Labs: 04/10/17 06:50 04/10/17 06:50 PT 87.8 SECONDS (9.7-12.2) H* D 04/10/17 12:57 INR 7.2 D 04/10/17 12:57 APTT 62 SECONDS (21-34) H 04/10/17 12:57 Assessment and Plan (1) Varices of esophagus determined by endoscopy Status: Acute (2) 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 P- Transfuse, PLTs, pRBC, check Hb, EGD. Discussed with Forensic Audit Expert, mother, Anesthesiogists and sister. Status: Acute
--- NOTE | 2017-04-10 15:49 | CP.CCUPN ---
CCU Subjective - Physician Review Events Since Last Encounter (Free Text): 04/10/17 15:41 patient is rapidly decompensating, comatose. CCU Objective - Vital Signs / Intake & Output Vital Signs (Last 4 hours): Vital Signs Temp Pulse Resp BP Pulse Ox 04/10/17 14:50 90 18 58/21 L 100 04/10/17 14:49 90 18 58/21 L 100 04/10/17 14:37 99.3 F 89 17 143/77 04/10/17 14:34 87 19 143/77 100 04/10/17 14:30 99.1 F 88 17 143/37 L 100 04/10/17 14:06 99.1 F 88 17 156/82 H 04/10/17 14:00 93 H 21 100 04/10/17 13:47 94 H 18 186/82 H 100 04/10/17 13:36 99.1 F 84 18 133/86 04/10/17 13:32 95 H 21 133/86 100 04/10/17 13:30 96 H 20 100 04/10/17 13:21 99.1 F 98 H 17 152/61 H 04/10/17 13:09 96 H 19 152/61 H 100 04/10/17 13:06 99.3 F 96 H 20 152/61 H 04/10/17 13:00 96 H 21 100 04/10/17 12:46 97 H 19 118/94 H 100 04/10/17 12:31 96 H 20 106/77 100 04/10/17 12:30 96 H 19 100 04/10/17 12:18 96 H 21 101/68 100 04/10/17 12:02 96 H 22 115/82 100 04/10/17 12:00 96 H 20 100 04/10/17 11:55 99.4 F 04/10/17 11:47 97 H 20 101/65 100 Intake and Output (Last 8hrs): Intake & Output 04/10/17 04/10/17 04/10/17 06:59 14:59 22:59 Intake Total 2819.6 4240.4 Output Total 100 900 Balance 2719.6 3340.4 Weight 98 lb 8 oz Intake: IV 108.7 1242 Intake, IV Amount 2710.9 1670.4 LIJ TLC 118.3 270.4 LIJ TLC medial port 1405.8 600 LIJ TLC proximal port 484.3 300.0 Left Internal Jugular 702.5 500 Blood Product 1328 Apheresis Plts Acda Lr 303 Irr Unit [id number] Red Blood Cells Cpd As1 0 Lr Unit [id number] Red Blood Cells Cpd As1 325 Lr Unit [id number] Output: Drainage 100 900 NGT 100 900 Stool 0 Emesis 0 Other: # Bowel Movements 1 - Physical Exam Head: Positive for: Atraumatic, Normocephalic Pupils: Positive for: PERRL Extroacular Muscles: Positive for: EOMI Mouth: Positive for: Moist Mucous Membranes Neck: Positive for: Normal Range of Motion Respiratory/Chest: Positive for: Clear to Auscultation Cardiovascular: Positive for: Regular Rate and Rhythm Abdomen: Positive for: Distention. Negative for: Tenderness Neurological: Negative for: GCS=15, CN II-XII Intact Psychiatric: Negative for: Alert - Medications Active Medications: Active Medications Generic Name Dose Route Start Last Admin Trade Name Freq PRN Reason Stop Dose Admin Albumin Human 12.5 gm 04/09/17 15:04 04/09/17 15:57 Albumin Human 25% (12.5 Gm/50 Ml) IV 12.5 gm ONCE PRN Administration SBP < 90 Epoetin William 10,000 unit 04/12/17 10:00 Procrit IV TTS ROHAN Hydrocortisone Sodium Succinate 100 mg 04/10/17 10:15 04/10/17 10:59 Solu-Cortef IV 100 mg Q8H ROHAN Administration Norepinephrine Bitartrate 8 mg 258 mls @ 7.74 mls/hr 04/09/17 23:40 04/10/17 14:50 / Sodium Chloride IV 19.37 mcg/min .Q24H PRN 37.5 mls/hr TITRATE PER MD ORDER Administration Protocol 4 MCG/MIN Dopamine HCl/Dextrose 400 mg in 250 mls @ 34.121 mls/hr 04/10/17 02:20 09:53 Dopamine 400mg/250ml D5w IV 20 mcg/kg/min .Q7H20M PRN 34.121 mls/hr TITRATE PER MD ORDER Administration Protocol 20 MCG/KG/MIN Epinephrine HCl 2 mg/ Sodium 252 mls @ 7.56 mls/hr 04/10/17 05:00 04/10/17 13 :48 Chloride IV 10 mcg/min .Q24H PRN 75.6 mls/hr TITRATE PER MD ORDER Administration Protocol 1 MCG/MIN Piperacillin Sod/Tazobactam Sod 3.375 gm in 50 mls @ 100 mls/hr 04/10/17 10: 00 04/10/17 09:25 Zosyn 3.375 Gm Iv Premix IVPB 100 mls/hr Q8H ROHAN Administration Dextrose/Sodium Chloride 1,000 mls @ 100 mls/hr 04/10/17 08:30 04/10/17 08:44 Dextrose 5%/0.9% Ns 1000 Ml IV 100 mls/hr .Q10H ROHAN Administration Octreotide Acetate 1,250 mcg/ 252.5 mls @ 5.05 mls/hr 04/10/17 13:15 13:49 Dextrose IV 5.05 mls/hr .Q24H ROHAN Administration Protocol 25 MCG/HR Pantoprazole Sodium 40 mg 04/10/17 13:00 04/10/17 13:52 Protonix Inj IVP 40 mg Q12H ROHAN Administration Rifaximin 550 mg 04/09/17 10:00 04/10/17 09:25 Xifaxan NG 550 mg BID ROHAN Administration - Patient Studies Lab Studies: Microbiology Studies 04/08/17 15:50 MRSA Culture (Admit) - Final Naris MRSA NOT DETECTED 04/08/17 13:00 Blood Culture - Preliminary Blood-Venous NO GROWTH AFTER 24 HOURS 04/08/17 13:10 Blood Culture - Preliminary Blood-Venous NO GROWTH AFTER 24 HOURS Lab Studies 04/10/17 04/10/17 04/10/17 Range/Units 12:57 10:01 08:28 WBC (4.8-10.8) K/uL RBC (4.40-5.90) Mil/uL Hgb (12.0-18.0) g/dL Hct (35.0-51.0) % MCV (80.0-94.0) fL MCH (27.0-31.0) pg MCHC (33.0-37.0) g/dL RDW (11.5-14.5) % Plt Count (130-400) K/uL MPV (7.2-11.7) fL Neut % (Auto) (50.0-75.0) % Lymph % (Auto) (20.0-40.0) % Snyder % (Auto) (0.0-10.0) % Eos % (Auto) (0.0-4.0) % Baso % (Auto) (0.0-2.0) % Neut # (1.8-7.0) K/uL Lymph # (1.0-4.3) K/uL Snyder # (0.0-0.8) K/uL Eos # (0.0-0.7) K/uL Baso # (0.0-0.2) K/uL Neutrophils % (Manual) (50-75) % Band Neutrophils % (0-2) % Lymphocytes % (Manual) (20-40) % Reactive Lymphs % (0-0) % Monocytes % (Manual) (0-10) % Eosinophils % (Manual) (0-4) % Basophils % (Manual) (0-2) % Metamyelocytes % (0-0) % Myelocytes % (0-0) % Nucleated RBC % (0-0) % Platelet Estimate (NORMAL) Large Platelets Hypochromasia (manual) Poikilocytosis (manual Basophilic Stippling Anisocytosis (manual) Ovalocytes PT 87.8 H* D (9.7-12.2) SECONDS INR 7.2 D APTT 62 H (21-34) SECONDS Puncture Site pCO2 (35-45) mm/Hg pO2 (30-55) mm/Hg HCO3 (21-28) mmol/L ABG pH (7.35-7.45) ABG Total CO2 (22-28) mmol/L ABG O2 Saturation (95-98) % ABG Base Excess (-2.0-3.0) mmol/L ABG Hemoglobin (11.7-17.4) g/dL ABG Carboxyhemoglobin (0.5-1.5) % POC ABG HHb (Measured) (0.0-5.0) % ABG Methemoglobin (0.0-3.0) % Ruddy Test VBG pH (7.32-7.43) VBG pCO2 (40-60) mmHg VBG HCO3 mmol/L VBG O2 Sat (Calc) (40-65) % VBG Base Excess (0.0-2.0) mmol/L A-a O2 Difference mm/Hg Respiratory Index Hgb O2 Saturation (95.0-98.0) % Vent Mode Mechanical Rate FiO2 % Tidal Volume PEEP Sodium (132-148) mmol/L Potassium (3.6-5.2) mmol/L Chloride (98-107) mmol/L Carbon Dioxide (22-30) mmol/L Anion Gap (10-20) BUN (9-20) mg/dL Creatinine (0.8-1.5) mg/dL Est GFR ( Amer) Est GFR (Non-Af Amer) POC Glucose (mg/dL) 58 L < 20 L* (65-110) mg/dL Random Glucose (75-110) mg/dL Calcium (8.6-10.4) mg/dl Phosphorus (2.5-4.5) mg/dL Magnesium (1.6-2.3) mg/dL Total Bilirubin (0.2-1.3) mg/dL AST (17-59) U/L ALT (21-72) U/L Alkaline Phosphatase (38-126) U/L Ammonia (9-33) umol/L Total Protein (6.3-8.3) g/dL Albumin (3.5-5.0) g/dL Globulin (2.2-3.9) gm/dL Albumin/Globulin Ratio (1.0-2.1) Blood Type Antibody Screen 04/10/17 04/10/17 04/10/17 Range/Units 08:15 06:50 06:50 WBC (4.8-10.8) K/uL RBC (4.40-5.90) Mil/uL Hgb (12.0-18.0) g/dL Hct (35.0-51.0) % MCV (80.0-94.0) fL MCH (27.0-31.0) pg MCHC (33.0-37.0) g/dL RDW (11.5-14.5) % Plt Count (130-400) K/uL MPV (7.2-11.7) fL Neut % (Auto) (50.0-75.0) % Lymph % (Auto) (20.0-40.0) % Snyder % (Auto) (0.0-10.0) % Eos % (Auto) (0.0-4.0) % Baso % (Auto) (0.0-2.0) % Neut # (1.8-7.0) K/uL Lymph # (1.0-4.3) K/uL Snyder # (0.0-0.8) K/uL Eos # (0.0-0.7) K/uL Baso # (0.0-0.2) K/uL Neutrophils % (Manual) (50-75) % Band Neutrophils % (0-2) % Lymphocytes % (Manual) (20-40) % Reactive Lymphs % (0-0) % Monocytes % (Manual) (0-10) % Eosinophils % (Manual) (0-4) % Basophils % (Manual) (0-2) % Metamyelocytes % (0-0) % Myelocytes % (0-0) % Nucleated RBC % (0-0) % Platelet Estimate (NORMAL) Large Platelets Hypochromasia (manual) Poikilocytosis (manual Basophilic Stippling Anisocytosis (manual) Ovalocytes PT (9.7-12.2) SECONDS INR APTT (21-34) SECONDS Puncture Site pCO2 (35-45) mm/Hg pO2 (30-55) mm/Hg HCO3 (21-28) mmol/L ABG pH (7.35-7.45) ABG Total CO2 (22-28) mmol/L ABG O2 Saturation (95-98) % ABG Base Excess (-2.0-3.0) mmol/L ABG Hemoglobin (11.7-17.4) g/dL ABG Carboxyhemoglobin (0.5-1.5) % POC ABG HHb (Measured) (0.0-5.0) % ABG Methemoglobin (0.0-3.0) % Ruddy Test VBG pH (7.32-7.43) VBG pCO2 (40-60) mmHg VBG HCO3 mmol/L VBG O2 Sat (Calc) (40-65) % VBG Base Excess (0.0-2.0) mmol/L A-a O2 Difference mm/Hg Respiratory Index Hgb O2 Saturation (95.0-98.0) % Vent Mode Mechanical Rate FiO2 % Tidal Volume PEEP Sodium 143 (132-148) mmol/L Potassium 4.5 (3.6-5.2) mmol/L Chloride 106 (98-107) mmol/L Carbon Dioxide 24 (22-30) mmol/L Anion Gap 18 (10-20) BUN 35 H (9-20) mg/dL Creatinine 6.3 H (0.8-1.5) mg/dL Est GFR ( Amer) 12 Est GFR (Non-Af Amer) 10 POC Glucose (mg/dL) (65-110) mg/dL Random Glucose < 20 L* D (75-110) mg/dL Calcium 5.9 L* (8.6-10.4) mg/dl Phosphorus 5.0 H (2.5-4.5) mg/dL Magnesium 1.7 (1.6-2.3) mg/dL Total Bilirubin 2.5 H (0.2-1.3) mg/dL AST 1005 H (17-59) U/L ALT 205 H D (21-72) U/L Alkaline Phosphatase 86 (38-126) U/L Ammonia 390 H D (9-33) umol/L Total Protein 6.5 (6.3-8.3) g/dL Albumin 2.7 L (3.5-5.0) g/dL Globulin 3.8 (2.2-3.9) gm/dL Albumin/Globulin Ratio 0.7 L (1.0-2.1) Blood Type O POSITIVE Antibody Screen Negative 04/10/17 04/10/17 04/10/17 Range/Units 06:50 04:25 02:40 WBC 1.9 L* D (4.8-10.8) K/uL RBC 2.58 L (4.40-5.90) Mil/uL Hgb 7.6 L (12.0-18.0) g/dL Hct 24.7 L (35.0-51.0) % MCV 95.7 H D (80.0-94.0) fL MCH 29.6 (27.0-31.0) pg MCHC 31.0 L (33.0-37.0) g/dL RDW 20.5 H (11.5-14.5) % Plt Count 25 L* D (130-400) K/uL MPV 8.8 (7.2-11.7) fL Neut % (Auto) 71.5 (50.0-75.0) % Lymph % (Auto) 16.9 L (20.0-40.0) % Snyder % (Auto) 7.5 (0.0-10.0) % Eos % (Auto) 3.1 (0.0-4.0) % Baso % (Auto) 1.0 (0.0-2.0) % Neut # 1.4 L (1.8-7.0) K/uL Lymph # 0.3 L (1.0-4.3) K/uL Snyder # 0.1 (0.0-0.8) K/uL Eos # 0.1 (0.0-0.7) K/uL Baso # 0.0 (0.0-0.2) K/uL Neutrophils % (Manual) 31 L (50-75) % Band Neutrophils % 36 H* (0-2) % Lymphocytes % (Manual) 15 L (20-40) % Reactive Lymphs % 1 H (0-0) % Monocytes % (Manual) 9 (0-10) % Eosinophils % (Manual) 3 (0-4) % Basophils % (Manual) 1 (0-2) % Metamyelocytes % 2 H (0-0) % Myelocytes % 2 H (0-0) % Nucleated RBC % 18 H (0-0) % Platelet Estimate Markedly decreased L (NORMAL) Large Platelets Present Hypochromasia (manual) Slight Poikilocytosis (manual Slight Basophilic Stippling Slight Anisocytosis (manual) Moderate Ovalocytes Slight PT (9.7-12.2) SECONDS INR APTT (21-34) SECONDS Puncture Site Rr Vbg pCO2 26 L (35-45) mm/Hg pO2 137 H 24 L (30-55) mm/Hg HCO3 20.5 L (21-28) mmol/L ABG pH 7.44 (7.35-7.45) ABG Total CO2 18.5 L (22-28) mmol/L ABG O2 Saturation 100.0 H (95-98) % ABG Base Excess -5.7 L (-2.0-3.0) mmol/L ABG Hemoglobin 7.8 L (11.7-17.4) g/dL ABG Carboxyhemoglobin 1.9 H (0.5-1.5) % POC ABG HHb (Measured) 0.0 (0.0-5.0) % ABG Methemoglobin 1.0 (0.0-3.0) % Ruddy Test Pos Na VBG pH 7.30 L (7.32-7.43) VBG pCO2 42 (40-60) mmHg VBG HCO3 18.9 mmol/L VBG O2 Sat (Calc) 39.0 L (40-65) % VBG Base Excess -5.5 L (0.0-2.0) mmol/L A-a O2 Difference 116.0 mm/Hg Respiratory Index 0.8 Hgb O2 Saturation 97.0 (95.0-98.0) % Vent Mode Prvc Mechanical Rate 12 FiO2 40.0 % Tidal Volume 450 PEEP 5 Sodium (132-148) mmol/L Potassium (3.6-5.2) mmol/L Chloride (98-107) mmol/L Carbon Dioxide (22-30) mmol/L Anion Gap (10-20) BUN (9-20) mg/dL Creatinine (0.8-1.5) mg/dL Est GFR ( Amer) Est GFR (Non-Af Amer) POC Glucose (mg/dL) (65-110) mg/dL Random Glucose (75-110) mg/dL Calcium (8.6-10.4) mg/dl Phosphorus (2.5-4.5) mg/dL Magnesium (1.6-2.3) mg/dL Total Bilirubin (0.2-1.3) mg/dL AST (17-59) U/L ALT (21-72) U/L Alkaline Phosphatase (38-126) U/L Ammonia (9-33) umol/L Total Protein (6.3-8.3) g/dL Albumin (3.5-5.0) g/dL Globulin (2.2-3.9) gm/dL Albumin/Globulin Ratio (1.0-2.1) Blood Type Antibody Screen Laboratory Results - last 24 hr 04/10/17 04/10/17 04/10/17 02:40 04:25 06:50 WBC 1.9 L* D RBC 2.58 L Hgb 7.6 L Hct 24.7 L MCV 95.7 H D MCH 29.6 MCHC 31.0 L RDW 20.5 H Plt Count 25 L* D MPV 8.8 Neut % (Auto) 71.5 Lymph % (Auto) 16.9 L Snyder % (Auto) 7.5 Eos % (Auto) 3.1 Baso % (Auto) 1.0 Neut # 1.4 L Lymph # 0.3 L Snyder # 0.1 Eos # 0.1 Baso # 0.0 Neutrophils % (Manual) 31 L Band Neutrophils % 36 H* Lymphocytes % (Manual) 15 L Reactive Lymphs % 1 H Monocytes % (Manual) 9 Eosinophils % (Manual) 3 Basophils % (Manual) 1 Metamyelocytes % 2 H Myelocytes % 2 H Nucleated RBC % 18 H Platelet Estimate Markedly decreased L Large Platelets Present Hypochromasia (manual) Slight Poikilocytosis (manual Slight Basophilic Stippling Slight Anisocytosis (manual) Moderate Ovalocytes Slight PT INR APTT Puncture Site Vbg Rr pCO2 26 L pO2 24 L 137 H HCO3 20.5 L ABG pH 7.44 ABG Total CO2 18.5 L ABG O2 Saturation 100.0 H ABG Base Excess -5.7 L ABG Hemoglobin 7.8 L ABG Carboxyhemoglobin 1.9 H POC ABG HHb (Measured) 0.0 ABG Methemoglobin 1.0 Ruddy Test Na Pos VBG pH 7.30 L VBG pCO2 42 VBG HCO3 18.9 VBG O2 Sat (Calc) 39.0 L VBG Base Excess -5.5 L A-a O2 Difference 116.0 Respiratory Index 0.8 Hgb O2 Saturation 97.0 Vent Mode Prvc Mechanical Rate 12 FiO2 40.0 Tidal Volume 450 PEEP 5 Sodium Potassium Chloride Carbon Dioxide Anion Gap BUN Creatinine Est GFR ( Amer) Est GFR (Non-Af Amer) POC Glucose (mg/dL) Random Glucose Calcium Phosphorus Magnesium Total Bilirubin AST ALT Alkaline Phosphatase Ammonia Total Protein Albumin Globulin Albumin/Globulin Ratio Blood Type Antibody Screen 04/10/17 04/10/17 04/10/17 06:50 06:50 08:15 WBC RBC Hgb Hct MCV MCH MCHC RDW Plt Count MPV Neut % (Auto) Lymph % (Auto) Snyder % (Auto) Eos % (Auto) Baso % (Auto) Neut # Lymph # Snyder # Eos # Baso # Neutrophils % (Manual) Band Neutrophils % Lymphocytes % (Manual) Reactive Lymphs % Monocytes % (Manual) Eosinophils % (Manual) Basophils % (Manual) Metamyelocytes % Myelocytes % Nucleated RBC % Platelet Estimate Large Platelets Hypochromasia (manual) Poikilocytosis (manual Basophilic Stippling Anisocytosis (manual) Ovalocytes PT INR APTT Puncture Site pCO2 pO2 HCO3 ABG pH ABG Total CO2 ABG O2 Saturation ABG Base Excess ABG Hemoglobin ABG Carboxyhemoglobin POC ABG HHb (Measured) ABG Methemoglobin Ruddy Test VBG pH VBG pCO2 VBG HCO3 VBG O2 Sat (Calc) VBG Base Excess A-a O2 Difference Respiratory Index Hgb O2 Saturation Vent Mode Mechanical Rate FiO2 Tidal Volume PEEP Sodium 143 Potassium 4.5 Chloride 106 Carbon Dioxide 24 Anion Gap 18 BUN 35 H Creatinine 6.3 H Est GFR ( Amer) 12 Est GFR (Non-Af Amer) 10 POC Glucose (mg/dL) Random Glucose < 20 L* D Calcium 5.9 L* Phosphorus 5.0 H Magnesium 1.7 Total Bilirubin 2.5 H AST 1005 H ALT 205 H D Alkaline Phosphatase 86 Ammonia 390 H D Total Protein 6.5 Albumin 2.7 L Globulin 3.8 Albumin/Globulin Ratio 0.7 L Blood Type O POSITIVE Antibody Screen Negative 04/10/17 04/10/17 04/10/17 08:28 10:01 12:57 WBC RBC Hgb Hct MCV MCH MCHC RDW Plt Count MPV Neut % (Auto) Lymph % (Auto) Snyder % (Auto) Eos % (Auto) Baso % (Auto) Neut # Lymph # Snyder # Eos # Baso # Neutrophils % (Manual) Band Neutrophils % Lymphocytes % (Manual) Reactive Lymphs % Monocytes % (Manual) Eosinophils % (Manual) Basophils % (Manual) Metamyelocytes % Myelocytes % Nucleated RBC % Platelet Estimate Large Platelets Hypochromasia (manual) Poikilocytosis (manual Basophilic Stippling Anisocytosis (manual) Ovalocytes PT 87.8 H* D INR 7.2 D APTT 62 H Puncture Site pCO2 pO2 HCO3 ABG pH ABG Total CO2 ABG O2 Saturation ABG Base Excess ABG Hemoglobin ABG Carboxyhemoglobin POC ABG HHb (Measured) ABG Methemoglobin Ruddy Test VBG pH VBG pCO2 VBG HCO3 VBG O2 Sat (Calc) VBG Base Excess A-a O2 Difference Respiratory Index Hgb O2 Saturation Vent Mode Mechanical Rate FiO2 Tidal Volume PEEP Sodium Potassium Chloride Carbon Dioxide Anion Gap BUN Creatinine Est GFR ( Amer) Est GFR (Non-Af Amer) POC Glucose (mg/dL) < 20 L* 58 L Random Glucose Calcium Phosphorus Magnesium Total Bilirubin AST ALT Alkaline Phosphatase Ammonia Total Protein Albumin Globulin Albumin/Globulin Ratio Blood Type Antibody Screen Fingerstick Blood Sugar Results: 73 Review of Systems - Review of Systems Systems not reviewed;Unavailable: Intubated Assessment/Plan (1) Hepatic encephalopathy Assessment and plan: 46yo M. 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 found obtunded by family. Neuro: still obtunded. hepatic encephalopathy continue rifaximin, stopped lactulose with bleed. Pulm: intubated for airway protection, on vent. CV: septic and hypovolemic shock, from bleeding. Dopamine, levophed and epinephrine drip, still not able to sustain adequate MAP's. stress dose steroids started. Hem: Blood from OGT. coagulopathic, transfusing 5 units FFP, 2 unit's PRBC, 1 unit pooled Platelets. Renal: ESRD had dialysis yesterday, tolerated well. metabolic acidosis, metabolic and respiratory alkalosis. Endo: no acute issues GI: NPO, octreotide drip. EGD showed gastric ulcers and portal gastropathy, oozing, no visible vessel, no bleeding varices. ID: septic shock, started on Vanco and Zosyn. DVT proph - SCD's, no a/c with current GI bleed GI proph - protonix IV q12h Code status - full code Patient is critically ill with high mortality risk. Critical Care Time spent 60 minutes Multi-disciplinary rounds were performed with house staff, nursing, speech therapy, respiratory therapy, pharmacy and nutrition with integrated input from the primary team/attending and other consulting services. The documented time is cumulative and includes review of patient data/exams/labs/chart review and examination of the patient on rounds and throughout the day; time is exclusive of any procedures or teaching time. Current Visit: Yes Status: Acute
--- NOTE | 2017-04-10 17:16 | CP.PCM.PN ---
Subjective - Date & Time of Evaluation Date of Evaluation: 04/10/17 Time of Evaluation: 15:20 - Subjective Subjective: clinically same Objective - Vital Signs/Intake and Output Vital Signs (last 24 hours): Temp Pulse Resp BP Pulse Ox 99.0 F 85 19 73/26 L 100 04/10/17 15:43 04/10/17 17:02 04/10/17 17:02 04/10/17 17:02 04/10/17 17:02 Intake and Output: 04/10/17 04/10/17 06:59 18:59 Intake Total 3254.7 5067.4 Output Total 350 900 Balance 2904.7 4167.4 - Medications Medications: Current Medications Albumin Human (Albumin Human 25% (12.5 Gm/50 Ml)) 12.5 gm IV ONCE PRN PRN Reason: SBP < 90 Last Admin: 04/09/17 15:57 Dose: 12.5 gm Epoetin William (Procrit) 10,000 unit IV TTS ROHAN Hydrocortisone Sodium Succinate (Solu-Cortef) 100 mg IV Q8H ROHAN Last Admin: 04/10/17 10:59 Dose: 100 mg Norepinephrine Bitartrate 8 mg (/ Sodium Chloride) 258 mls @ 7.74 mls/hr IV .Q24H PRN; Protocol; 4 MCG/MIN PRN Reason: TITRATE PER MD ORDER Last Admin: 04/10/17 14:50 Dose: 19.37 mcg/min, 37.5 mls/hr Dopamine HCl/Dextrose (Dopamine 400mg/250ml D5w) 400 mg in 250 mls @ 34.121 mls /hr IV .Q7H20M PRN; Protocol; 20 MCG/KG/MIN PRN Reason: TITRATE PER MD ORDER Last Admin: 04/10/17 17:02 Dose: 20 mcg/kg/min, 34.121 mls/hr Epinephrine HCl 2 mg/ Sodium (Chloride) 252 mls @ 7.56 mls/hr IV .Q24H PRN; Protocol; 1 MCG/MIN PRN Reason: TITRATE PER MD ORDER Last Admin: 04/10/17 17:06 Dose: 10 mcg/min, 75.6 mls/hr Piperacillin Sod/Tazobactam Sod (Zosyn 3.375 Gm Iv Premix) 3.375 gm in 50 mls @ 100 mls/hr IVPB Q8H ROHAN Last Admin: 04/10/17 17:01 Dose: 100 mls/hr Dextrose/Sodium Chloride (Dextrose 5%/0.9% Ns 1000 Ml) 1,000 mls @ 100 mls/hr IV .Q10H ROHAN Last Admin: 04/10/17 08:44 Dose: 100 mls/hr Octreotide Acetate 1,250 mcg/ (Dextrose) 252.5 mls @ 5.05 mls/hr IV .Q24H ROHAN; 25 MCG/HR PRN Reason: Protocol Last Admin: 04/10/17 13:49 Dose: 5.05 mls/hr Pantoprazole Sodium (Protonix Inj) 40 mg IVP Q12H ROHAN Last Admin: 04/10/17 13:52 Dose: 40 mg Rifaximin (Xifaxan) 550 mg NG BID [facility] Last Admin: 04/10/17 17:01 Dose: 550 mg - Labs Labs: 04/10/17 06:50 04/10/17 06:50 PT 87.8 SECONDS (9.7-12.2) H* D 04/10/17 12:57 INR 7.2 D 04/10/17 12:57 APTT 62 SECONDS (21-34) H 04/10/17 12:57 - Constitutional Appears: Well - Head Exam Head Exam: ATRAUMATIC, NORMAL INSPECTION, NORMOCEPHALIC - Eye Exam Eye Exam: EOMI, Normal appearance, PERRL Pupil Exam: NORMAL ACCOMODATION, PERRL - ENT Exam ENT Exam: Mucous Membranes Moist, Normal Exam - Neck Exam Neck Exam: Full ROM, Normal Inspection. absent: Lymphadenopathy - Respiratory Exam Respiratory Exam: Clear to Ausculation Bilateral, NORMAL BREATHING PATTERN - Cardiovascular Exam Cardiovascular Exam: REGULAR RHYTHM, +S1, +S2. absent: Murmur - GI/Abdominal Exam GI & Abdominal Exam: Soft, Normal Bowel Sounds. absent: Tenderness - Rectal Exam Rectal Exam: Deferred - Extremities Exam Extremities Exam: Full ROM, Normal Capillary Refill, Normal Inspection. absent : Joint Swelling, Pedal Edema - Back Exam Back Exam: NORMAL INSPECTION Assessment and Plan (1) Abdominal pain Status: Acute (2) Abdominal pain Status: Acute (3) Abnormal CT of the abdomen Status: Acute (4) Acute colitis Status: Acute (5) Altered mental status Status: Acute (6) Anemia Status: Acute (7) Anemia due to acute blood loss Status: Acute (8) Chronic hepatitis B Status: Acute (9) Chronic hepatitis B without delta agent without cirrhosis Status: Acute (10) Colitis Status: Acute (11) ESRD (end stage renal disease) on dialysis Status: Acute (12) Esophageal varices with bleeding Status: Acute (13) GI bleed Status: Acute (14) 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 Status: Acute (15) 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 Status: Acute (16) 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 Status: Acute (17) Hepatic encephalopathy Status: Acute (18) Hepatic encephalopathy Status: Acute (19) Hypertension Status: Acute (20) Hypotension Status: Acute (21) Nausea Status: Acute (22) Pancytopenia Status: Acute (23) Renal failure Status: Acute (24) Respiratory failure Status: Acute (25) UGI bleed Status: Acute (26) Varices of esophagus determined by endoscopy Status: Acute (27) Vascular abnormality Status: Acute (28) Vein stenosis Status: Acute (29) Vomiting Status: Acute (30) Chronic hepatitis B with cirrhosis Status: Chronic (31) Chronic kidney disease with end stage renal failure on dialysis Status: Chronic (32) Cirrhosis Status: Chronic (33) GI bleed Status: Resolved - Assessment and Plan (Free Text) Plan: Patient examined. Poor prognosis. Continue IV antibiotics. Patient became hypotensive and undergoing HD. Blood pressure at 58 systolic. Continue pressure support with epinephrine and norepinephrine. Continue bypassing tazobactam, vancomycin. Continue lactulose and rifaximin. Continue supportive care.
[2017-04-10 21:29] VITALS: TEMP 91.7
[2017-04-10 21:59] VITALS: BP 75/23; PULSE 69; RESP 16
--- NOTE | 2017-04-10 23:02 | CP.PCM.PRO ---
Pronouncement of Note - Clinical Findings Physical Exam: No Response Verbal/Painful Stimuli, Absent Peripheral Pulses{ Carotid & Femoral}, Absent Heart & Breath Sounds (Patient on vent), No Pupillary Light Reflex, No Corneal Reflex, Pupils Fixed & Dilated, Absence of Vital Signs - Notifications Pronouncement Notifications: Family Notified (Sister Katy), Atending Notified Accounting Manager Cpa Notified: No - Autopsy Autopsy Requested: No - [place]: [id number] Additional Comments: Asystole noticed on the monitor, confired by exam, patient was DNR/DNI.
--- NOTE | 2017-04-11 18:02 | CARD ---
APPROVED REPORT EKG Measurement Heart [id number] <Conclusion> Normal sinus rhythm Nonspecific T wave abnormality Prolonged QT Abnormal ECG
[2017-04-12] MEDS ORDERED: Epoetin Alfa 10,000 unit/ml Dialysis IV SCH (10:00)
== END 2017-04-11 00:15 | DRG 441 ==
LOC: C.ER 12:08 → C.9I 14:54
PROVIDERS: ADMIT Internal Medicine Nephrology; ATTEND Internal Medicine Nephrology
PROC: 5A1945Z Respiratory Ventilation, 24-96 Consecutive Hours (ICD-10-PCS; principal; 2017-04-09)
PROC: 0BH17EZ Insertion of Endotracheal Airway into Trachea, Via Natural or Artificial Opening (ICD-10-PCS; 2017-04-09)
PROC: 02HV33Z Insertion of Infusion Device into Superior Vena Cava, Percutaneous Approach (ICD-10-PCS; 2017-04-09)
PROC: 5A1D70Z Performance of Urinary Filtration, Intermittent, Less than 6 Hours Per Day (ICD-10-PCS; 2017-04-09)
PROC: 30233L1 Transfusion of Nonautologous Fresh Plasma into Peripheral Vein, Percutaneous Approach (ICD-10-PCS; 2017-04-10)
PROC: 30233N1 Transfusion of Nonautologous Red Blood Cells into Peripheral Vein, Percutaneous Approach (ICD-10-PCS; 2017-04-10)
PROC: 0DJ08ZZ Inspection of Upper Intestinal Tract, Via Natural or Artificial Opening Endoscopic (ICD-10-PCS; 2017-04-10)
DX: K72.91 Hepatic failure, unspecified with coma (principal); N18.6 End stage renal disease; J96.90 Respiratory failure, unspecified, unspecified whether with hypoxia or hypercapnia; B16.0 Acute hepatitis B with delta-agent with hepatic coma; T86.12 Kidney transplant failure; D61.818 Other pancytopenia; N17.9 Acute kidney failure, unspecified; I12.0 Hypertensive chronic kidney disease with stage 5 chronic kidney disease or end stage renal disease; D62 Acute posthemorrhagic anemia; K92.2 Gastrointestinal hemorrhage, unspecified; K74.69 Other cirrhosis of liver; Z99.2 Dependence on renal dialysis; Z91.14 Patient's other noncompliance with medication regimen; K76.6 Portal hypertension; K31.89 Other diseases of stomach and duodenum; K52.9 Noninfective gastroenteritis and colitis, unspecified; Z66 Do not resuscitate